=== PATIENT | female | born 1950 | race Caucasian/White ===

== ENCOUNTER → 2016-07-22 | Outpatient (CLI) | payer MEDICARE, BC ==
[2015-08-14 07:52] VITALS: BP 108/63
[~2016-07-22] MED LIST: ALEN1TAB2 PO; AMLO2.5T PO; ASPI-482 PO; ATOR20TA58 PO; CALC-77 PO; CARV3.122 PO; ESCI10TA PO; FENO160T PO; FERR-26 PO; FURO40TA4 PO; GLIP10TA13 PO; HYDR-2762 PO; INSU100C4 SQ; INSU100V13 SQ; IRBE1TAB7 PO; ISOS120T2 PO; LEVO50TA5 PO; LIRA0.6P SQ; LIRA0.6P2 SQ; LORA10TA55 PO; METF10002 PO; MULT-246 PO; NAPR220T25 PO; NAPR550T3 PO; NITR0.4T SL; OMEG1CAP6 PO; OMEG500C PO; OMEP20CA9 PO; OMEP20TA PO; POTA20TA84 PO
--- NOTE | 2016-07-22 15:23 | EKG ---
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
[2016-07-22 15:33] LABS: INR 1.1 (0.8-1.1); PROTHROMBIN TIME PATIENT 13.2 SEC (11.7-14.0)
[2016-07-22 15:47] LABS: BILIRUBIN,URINE NEGATIVE (NEG); GLUCOSE,URINE NEGATIVE (NEG); NITRITE,URINE NEGATIVE (NEG); PH,URINE 5.5; PROTEIN,URINE NEGATIVE (NEG-TRACE); UROBILINOGEN,URINE 0.2 mg/dL (0.2 mg/dL)
--- NOTE | 2016-07-22 16:07 | RAD ---
Indication preop. Anticipated orthopedic surgery. PA and lateral views of the chest were obtained. Comparison is made to an examination one year ago. Heart size is slightly enlarged but unchanged. There is no gross congestive heart failure. A focal infiltrate in either lung is not seen. Significant pleural fluid is not seen. There is no pneumothorax. A significant change compared to the prior study is not seen. Right shoulder prosthesis is noted. IMPRESSION: Chronic changes. No acute process. No significant change
[2016-07-22 16:09] LABS: BACTERIA,URINE FEW /HPF (0-FEW); RBC,URINE 0 /HPF (0-2); SQUAMOUS EPITHELIAL CELL,UR OCC /LPF
== END | disposition home or self-care (01) ==
LOC: SURGPAT 13:59
PROVIDERS: ATTEND Orthopaedic Surgery
DX: Z01.818 Encounter for other preprocedural examination (principal); Z96.651 Presence of right artificial knee joint
CPT/HCPCS: 36415; 71020; 81001; 85610; 85651; 85730; 87086; 87641; 93005

== ENCOUNTER 2016-07-26 06:06 | Inpatient (IN) | payer MEDICARE, BC ==
--- NOTE | 2016-07-22 14:26 | PDOC1 ---
History and Physical Date of Admission Date of Admission DATE: 07/26/16 Identification/Chief Complaint Chief Complaint right knee pain Source Source: Chart review History of Present Illness History of Present Illness Freya is a 66 year old female with right knee pain with history of right total knee arthroplasty on 08/11/15. About two months ago, she fell in her home, she does not remember if she landed on her knee or not. She has been treated for a periprosthetic patella fracture with a hinged knee brace, locked in extension, for three weeks. She continues to have pain and instability. Past Medical History Cardiovascular: CHF, HTN, Other Pulmonary: Asthma, COPD Musculoskeletal: low back pain, Osteoarthritis Endocrine: Diabetes Past Surgical History Past Surgical History: Appendectomy, Cholecystectomy, Total knee replacement ( right - 08/01/15), Tonsillectomy, Hysterectomy, Other (TSA) Family History Family History: Cancer, Heart Disease, Hypertension, Stroke Social History Smoke: No ALCOHOL: none Drugs: None Current Medications Current Medications Active Scripts Active Reported Ferrous Sulfate 325 Mg Tablet 1 Tab PO BID LAST DOSE GIVEN: DATE: 08/13 TIME: 9 am NEXT DOSE DUE: DATE: 08/14 TIME: 5 pm Victoza 3-Darío (Liraglutide) 0.6 Mg/0.1 Ml Pen.injctr 1.8 Mg SQ DAILY LAST DOSE GIVEN: DATE: 08/13 TIME: 9 am NEXT DOSE DUE: DATE: 08/14 TIME: 9 am Levemir (Insulin Detemir) 100 Unit/1 Ml Vial 25 Unit SQ HS LAST DOSE GIVEN: DATE: 08/12 TIME: 9 pm NEXT DOSE DUE: DATE: 08/13 TIME: 9 pm Amlodipine Besylate 2.5 Mg Tablet 2.5 Mg PO DAILY LAST DOSE GIVEN: DATE: 08/13 TIME: 9 am NEXT DOSE DUE: DATE: 08/14 TIME: 9 am Nitrostat (Nitroglycerin) 0.4 Mg Tab.subl 0.4 Mg SL PRN Q5MIN PRN Not given. Resume at home as needed for chest pain. Aspir 81 (Aspirin) 81 Mg Tablet.dr 81 Mg PO LAST DOSE GIVEN: DATE: 08/13 TIME: 9 am NEXT DOSE DUE: DATE: 08/14 TIME: 9 am Fosamax Plus D 70 Mg-2,800 Iu (Alendronate Sodium/Vitamin D3) 1 Each Tablet 1 Each PO WEEKLY LAST DOSE GIVEN: DATE: TIME: NEXT DOSE DUE: DATE: TIME: Calcium + D3 Er Tablet (Calcium Carb & Cit/Vitamin D3) 1 Each Tablet.er 1 Each PO DAILY LAST DOSE GIVEN: DATE: 08/13 TIME: 9 am NEXT DOSE DUE: DATE: 08/14 TIME: 9 am Escitalopram Oxalate 10 Mg Tablet 10 Mg PO DAILY LAST DOSE GIVEN: DATE: 08/13 TIME: 9 am NEXT DOSE DUE: DATE: 08/14 TIME: 9 am Atorvastatin Calcium 20 Mg Tablet 20 Mg PO DAILY LAST DOSE GIVEN: DATE: 08/12 TIME: 9 pm NEXT DOSE DUE: DATE: 08/13 TIME: 9 pm Fenofibrate 160 Mg Tablet 160 Mg PO DAILY LAST DOSE GIVEN: DATE: 08/13 TIME: 9 am NEXT DOSE DUE: DATE: 08/14 TIME: 9 am Novolog (Insulin Aspart) 100 Unit/1 Ml Cartridge 6 Units SQ QID Irbesartan-Hctz 300-12.5 Mg Tb (Irbesartan/Hydrochlorothiazide) 1 Each Tablet 0.5 Tab PO DAILY LAST DOSE GIVEN: DATE: 08/13 TIME: 9 am NEXT DOSE DUE: DATE: 08/14 TIME: 9 am Multi-Vitamin Daily (Multivitamin) 1 Each Tablet 1 Each PO DAILY LAST DOSE GIVEN: DATE: 08/13 TIME: 9 am NEXT DOSE DUE: DATE: 08/14 TIME: 9 am Loratadine 10 Mg Tab.rapdis 10 Mg PO DAILY LAST DOSE GIVEN: DATE: 08/13 TIME: 9 am NEXT DOSE DUE: DATE: 08/14 TIME: 9 am Isosorbide Mononitrate Er (Isosorbide Mononitrate) 120 Mg Tab.er.24h 60 Mg PO DAILY LAST DOSE GIVEN: DATE: 08/13 TIME: 9 am NEXT DOSE DUE: DATE: 08/14 TIME: 9 am Levothyroxine Sodium 50 Mcg Tablet 50 Mcg PO DAILYAC LAST DOSE GIVEN: DATE: 08/13 TIME: 9 am NEXT DOSE DUE: DATE: 08/14 TIME: 9 am Furosemide 40 Mg Tablet 40 Mg PO BID LAST DOSE GIVEN: DATE: 08/13 TIME: 9 am NEXT DOSE DUE: DATE: 08/14 TIME: 5 pm Metformin Hcl 1,000 Mg Tablet 1,000 Mg PO BID LAST DOSE GIVEN: DATE: 08/13 TIME: 9 am NEXT DOSE DUE: DATE: 08/13 TIME: 5 pm Carvedilol 3.125 Mg Tablet 3.125 Mg PO BID LAST DOSE GIVEN: DATE: 08/13 TIME: 9 am NEXT DOSE DUE: DATE: 08/13 TIME: 5 pm K-Tab ER (Potassium Chloride) 20 Meq Tablet.er 20 Meq PO DAILY LAST DOSE GIVEN: DATE: 08/13 TIME: 9 am NEXT DOSE DUE: DATE: 08/14 TIME: 9 am Omeprazole 20 Mg Tablet.dr 20 Mg PO DAILY LAST DOSE GIVEN: DATE: 08/13 TIME: 9 am NEXT DOSE DUE: DATE: 08/14 TIME: 9 am protonix substituted Glipizide 10 Mg Tablet 10 Mg PO BID LAST DOSE GIVEN: DATE: 08/13 TIME: 9 am NEXT DOSE DUE: DATE: 08/14 TIME: 5 pm Allergies Allergies: Coded Allergies: codeine (Verified Allergy, Intermediate, 09/08/14) niacin (Verified Allergy, Intermediate, 09/08/14) nifedipine (Verified Allergy, Intermediate, 09/08/14) propoxyphene (Verified Allergy, Intermediate, 09/08/14) Physical Exam General: Alert, Oriented X3, Cooperative, No acute distress HEENT: Atraumatic, EOMI Lungs: Normal air movement Heart: RRR Abdomen: Soft Extremities: No clubbing, No cyanosis, Normal pulses, Other (The right total knee incision is well-healed with no evidence of infection. No detectable effusion. There is moderate to severe tenderness to palpation at the superior and inferior pole of the patella and along the patellar tendon. The right knee shows active range of motion from 0-100 but pain at the extremes. The patella seems slightly in mariza position compared to her other knee. There is pain and tightness felt at the extreme of flexion. Extensor mechanism is intact but weak. The knee is stable to varus and valgus stress, without subluxation or laxity. Calf soft and nontender, with a negative Jaya's sign. ) Skin: No rashes, No breakdown, No significant lesion Neuro: Normal speech, Sensation intact Psych/Mental Status: Mental status NL, Mood NL VTE Prophylaxis Ordered VTE Prophylaxis Devices: Yes VTE Pharmacological Prophylaxi: Yes Assessment/Plan Assessment/Plan Continued pain and weakness of the extensor mechanism, patella fracture on radiograph, palpable tenderness of the patellar tendon. This is been unrelieved with splinting. She has severe pain and a sense of instability of the knee. She denies numbness or tingling. Dr. Blackwell spoke to her about surgical repair of her extensor mechanism, along with hamstring tendon autograft augmentation. She may need partial or total patellectomy depending on the findings intraoperatively. We will try to repair whenever patella tendon is available, although it may be torn or atrophic. We will augment that with the hamstring autograft, and used # 5 fiber wire suture from the quadriceps, through the remaining patella, into the tibial tubercle. She will need to be in the knee brace locked in extension for six weeks postoperatively. We talked about potential risks of ongoing pain or weakness, infection, bleeding, blood clots, or other potential surgical or anesthetic complications. All of her questions were answered. She desires to proceed. LUIS ARMANDO ROQUE Jul 22, 2016 14:26
[~2016-07-26] VITALS: Ht 152.4 cm; Wt 86.6 kg
[2016-07-26] VITALS (8 sets, daily range): BP systolic 116–133; BP diastolic 59–74
[~2016-07-26 06:06] MED LIST changes: +CEFAZOLIN 2GM PREMIX 50 ML IV PRN; +HYDROCODONE/APAP 7.5/325MG TABLET. PO PRN; +MORPHINE SULFATE 5 MG, KETOROLAC TROMETHAMINE 30 MG, ROPIVacaine 0.5% PF 60 ML, EPINEPH... INT ART ONE; +TRANEXAMIC ACID 1,000 MG in IV NORMAL SALINE 50ML 50 ML INJ ONE
[2016-07-26] MEDS ORDERED: EPINEPHRINE 30 MG/30 ML VIAL. ONE (06:25)
[2016-07-26] MEDS ORDERED: BUPIVACAINE-EPI 0.25%-1:200000 50 ML VIAL. ONE (06:25)
[2016-07-26] MEDS ORDERED: FENTANYL PF 100 MCG/2 ML VIAL. IV PRN ×3 (07:00→09:45)
[2016-07-26] MEDS ORDERED: CEFAZOLIN PREMIX 2 GM/50 ML BAG. IV ONE (07:00)
[2016-07-26] MEDS ORDERED: PROCHLORPERAZINE 10 MG/2 ML VIAL. IV PRN ×2 (07:00→09:45)
[2016-07-26] MEDS ORDERED: HYDROMORPHONE 2 MG/ML VIAL. IV PRN (07:00)
[2016-07-26] MEDS ORDERED: LIDOCAINE 1% 1 ML SYRINGE. ID PRN (07:00)
[2016-07-26] MEDS ORDERED: MORPHINE SULFATE 2 MG/ML DISP.SYRIN. IV PRN ×2 (07:00→09:45)
[2016-07-26] MEDS ORDERED: SCOPOLAMINE 1.5MG PATCH. TD SCH (07:00)
[2016-07-26] MEDS ORDERED: ONDANSETRON PF 4 MG/2 ML VIAL. IV PRN (07:00)
[2016-07-26] MEDS ORDERED: IV RINGERS,LACTATED 1000ML 1,000 ML IV SCH (07:00)
[2016-07-26] MEDS: IV RINGERS,LACTATED 1000ML 1,000 ML IV SCH ×2 (07:30→21:50)
[2016-07-26 07:56] LABS: BILIRUBIN,URINE NEGATIVE (NEG); GLUCOSE,URINE NEGATIVE (NEG); NITRITE,URINE NEGATIVE (NEG); PROTEIN,URINE NEGATIVE (NEG-TRACE)
[2016-07-26] MEDS ORDERED: FENTANYL PF 100 MCG/2 ML VIAL. ONE ×2 (07:57→08:40)
[2016-07-26] MEDS ORDERED: SEVOFLURANE 61 TO 120 MINUTES. IH ONE (07:57)
[2016-07-26] MEDS ORDERED: LIDOCAINE 2% 100 MG/5 ML SYRINGE. ONE (07:57)
[2016-07-26] MEDS ORDERED: DEXAMETHASONE SOD PHOS 20 MG/5 ML VIAL. ONE (07:57)
[2016-07-26] MEDS ORDERED: PROPOFOL 20 ML IV ONE (07:57)
[2016-07-26] MEDS ORDERED: TRANEXAMIC ACID 1,000 MG in IV NORMAL SALINE 50ML 50 ML INJ ONE (08:00)
[2016-07-26] MEDS ORDERED: EPHEDRINE PF IN SALINE 50 MG/5 ML DISP.SYRIN. IV ONE (08:01)
[2016-07-26 08:05] LABS: BACTERIA,URINE FEW /HPF (0-FEW); RBC,URINE OCC /HPF (0-2); SQUAMOUS EPITHELIAL CELL,UR MOD /LPF
[2016-07-26] MEDS ORDERED: FAMOTIDINE 20 MG/2 ML VIAL ONE (08:45)
[2016-07-26] MEDS ORDERED: ONDANSETRON PF 4 MG/2 ML VIAL. ONE (08:45)
[2016-07-26] MEDS: FENTANYL PF 100 MCG/2 ML VIAL. IV PRN ×4 (09:44→10:07)
[2016-07-26] MEDS ORDERED: ACETAMINOPHEN 325 MG TABLET. PO PRN (09:45)
[2016-07-26] MEDS ORDERED: DEXTROSE 50% 25 GM / 50ML DISP.SYRIN. IV PRN ×2 (09:45→10:30)
[2016-07-26] MEDS ORDERED: DIPHENHYDRAMINE 50 MG/ML VIAL. IV PRN (09:45)
[2016-07-26] MEDS ORDERED: OXYCODONE/APAP 7.5/325 TABLET. PO PRN (09:45)
[2016-07-26] MEDS ORDERED: HYDROCODONE/APAP 10/325 TABLET. PO PRN (09:45)
[2016-07-26] MEDS ORDERED: ZOLPIDEM 5 MG TABLET. PO PRN (09:45)
[2016-07-26] MEDS ORDERED: CALCIUM CARBONATE 500 MG TAB.CHEW PO PRN (09:45)
[2016-07-26] MEDS ORDERED: 0.9 % SODIUM CHLORIDE 10 ML DISP.SYRIN. IV PRN (09:45)
[2016-07-26] MEDS ORDERED: TRAMADOL 50 MG TABLET. PO PRN ×2 (09:45)
[2016-07-26] MEDS ORDERED: OXYCODONE/APAP 5/325 TABLET. PO PRN (09:45)
[2016-07-26] MEDS ORDERED: MORPHINE SULFATE 4 MG/ML DISP.SYRIN. IV PRN ×2 (09:45)
[2016-07-26] MEDS ORDERED: MORPHINE SULFATE 10 MG/ML VIAL. IV PRN (09:45)
[2016-07-26] MEDS ORDERED: METOCLOPRAMIDE HCL 10 MG/2 ML VIAL. IV PRN (09:45)
[2016-07-26] MEDS ORDERED: PROCHLORPERAZINE 5 MG TABLET. PO PRN (09:45)
--- NOTE | 2016-07-26 10:01 | PDOC4 ---
Operative Note Operative Note Date of Procedure: July 26, 2016 Pre-Op Diagnosis: Rupture of infrapatellar tendon right knee, periprosthetic Post-Op Diagnosis: Same Procedure: suture repair infrapatellar tendon using ipsilateral hamstring tendon autograft Surgeon: Kayce Blackwell MD Scorer Helper: Rocio Alonso PA-C Anesthesia: General EBL: 50 mL Specimens Obtained: none Complications: none Drains: none Indications for Procedure: The patient is a 66-year-old who had a prior total knee arthroplasty. She had an injury to the knee where she has fractured the lowest portion of the inferior pole of patella, and has weakness and a palpable defect in the extensor mechanism. Radiographic views showed patella mariza compared to her prior surgery postoperative films. We tried nonoperative treatment with bracing but she still has a lengthened extensor mechanism which causes weakness and giving way and pain. I recommended reconstruction of the patellar tendon using a hamstring tendon autograft. We might need to remove part of the patella. The patient and I discussed the risks, benefits and alternatives of surgery. Procedure in Detail: The patient was identified in the preoperative holding area. The correct right lower extremity was marked by me. The patient was taken to the operating room where general anesthesia was used. The patient was positioned supine on the operating table. Preoperative antibiotics were given intravenously. Tranexamic acid was given intravenously. A timeout procedure was performed. A tourniquet was used on the upper thigh. The limb was prepared in sterile fashion with ChloraPrep circumferentially. Sterile drapes were applied. An impervious stockinette was used over the lower limb. An Ioban drape was used such that the skin was entirely covered. Operative team wore personal exhaust ventilated hoods. The limb was elevated to exsanguinate it. The tourniquet was inflated to 350 mmHg. Previous midline incision was used. Sharp dissection was used and the electrocautery was used as needed for hemostasis. The peritenon was divided, and the patella and the patellar tendon were exposed. There was a palpable defect, and an area where the injury occurred corresponding with the x-ray findings. There was not much of a visual defect anymore as there had been some remodeling of the scar tissue. I excised some of the excess and fibrinous tissue in this area using a rongeurs and with a scalpel, to allow the tendon to shorten back to its original length. I harvested the semitendinosus tendon by increasing the exposure medially. The sartorius fascia was elevated. The semitendinosus was identified on the proximal tibia and dissected up the thigh with a [facility] tendon harvester. The tendon was detached from the upper tibia then taken to the back table where it was further prepared by my family and divorce legal assistant Rocio Alonso PA-C. Mr. Foster removed excess synovium and muscle fibers from the tendon graft. She trimmed of the tendon edges. She whipstitched the 2 free ends with #2 FiberWire suture and a running-I have not locking pattern. I proceeded with dissection at the upper patella for preparation of the graft passage. I did a medial arthrotomy, and exposed the patella, and the patellar implant was stable. There was transparent pale yellow benign synovial fluid with no evidence of infection. The components did not appear loose. I used a # 15 scalpel to create a tunnel position for the graft horizontally above the patella. Once Rocio finished with the tendon graft, it was implanted and used to reconstruct the patellar tendon. We passed that tendon graft using a Hewson suture passer across the superior pole of the patella at the quadriceps tendon-bone junction. The 2 limbs of the tendon were now brought down within some of the original infrapatellar tendon fibers and slightly anterior to the original tendon fibers, and brought down to the tibial tubercle. The whipstitched ends of the tendons were now attached to the tibial tubercle. I used a 2.5 mm drill bit from the [employer] titanium small fragment screw set. A bicortical hole was made. The depth was measured. A 4.0 mm partially threaded cancellous screw with a washer was used. Titanium implants were used. The screw and washer were inserted most of the way, and then the #2 FiberWire sutures from the patellar tendon were secured around the screw-washer post. The sutures were tied and trimmed for secure tensioning. The patella was now brought down to its original location as the sutures were tied. The screw was now advanced to complete the tightening of the washer to the bone. A secure repair was obtained with a nicely reconstructed infrapatellar tendon. The knee was able to be flexed to 90 with adequate tension on the graft , and no evidence of further patella mariza. The tourniquet was released. Bovie electrocautery was used for hemostasis. A periarticular injection was used with ropivacaine, morphine, epinephrine and Toradol. Tranexamic acid was given intravenously. Copious irrigation was used with saline. The medial parapatellar arthrotomy, and the patellar tendon was repaired with #2 PDS suture. 2-0 Vicryl was used in the peritenon. I had Rocio close the subcutaneous continues tissues with 2-0 Vicryl, and re-appose the skin with angella. Sterile dressings were applied. Needle and sponge counts were correct. There were no apparent competitions. KAYCE BLACKWELL MD Jul 26, 2016 10:01
[2016-07-26] MEDS ORDERED: NITROGLYCERIN SUBLINGUAL 0.4 MG BOTTLE OF 25. SL PRN (10:30)
--- NOTE | 2016-07-26 10:44 | RAD ---
Right knee radiographs History: Postoperative right knee. Comparison: 08/11/2015. Findings: AP and lateral views of the right knee. Again identified is a right total knee arthroplasty. Relationship of the tibial and femoral components appears anatomic. There has been interval placement of a long orthopedic screw involving the proximal tibia which may extend to the fibula as well. Soft tissue gas and surgical skin angella are compatible with recent postoperative status. A few small well-corticated ossific densities are seen around patella, including a small ossific density at the inferior aspect which is favored to represent a small chronic fracture fragment. Impression: 1. Postoperative changes of the right knee as described above. 2. Chronic fragmentation of the patella.
[2016-07-26] MEDS: HYDROCODONE/APAP 7.5/325MG TABLET. PO PRN (13:04)
[2016-07-26] MEDS: FUROSEMIDE 40 MG TABLET. PO SCH (13:04)
[2016-07-26] MEDS: SENNOSIDES/DOCUSATE 8.6/50MG TABLET. PO SCH (13:04)
[2016-07-26] MEDS: CEFAZOLIN 2GM PREMIX 50 ML IV SCH ×2 (13:08→20:23)
[2016-07-26] MEDS ORDERED: CARVEDILOL 3.125 MG TABLET. PO SCH (17:00)
[2016-07-26] MEDS: INSULIN ASPART 300 UNITS/3 ML INSULN.PEN SQ SCH ×3 (17:57→21:00)
[2016-07-26] MEDS: GLIPIZIDE 5 MG TABLET. PO SCH (17:57)
[2016-07-26] MEDS: FERROUS SULFATE 325 MG TABLET. PO SCH (17:57)
[2016-07-26] MEDS: METFORMIN 1,000 MG TABLET PO SCH (17:57)
[2016-07-26] MEDS ORDERED: INSULIN ASPART 300 UNITS/3 ML INSULN.PEN SQ ONE ×3 (19:15→23:00)
[2016-07-26] MEDS: IV DEXTROSE 5 %-0.45 % NACL 1,000 ML IV SCH (19:38)
[2016-07-26] MEDS ORDERED: AMLODIPINE BESYLATE 2.5 MG TABLET. PO SCH (21:00)
[2016-07-26] MEDS ORDERED: ATORVASTATIN CALCIUM 20 MG TABLET PO SCH (21:00)
[2016-07-26] MEDS: NAPROXEN 250 MG TABLET PO SCH (21:00)
[2016-07-26] MEDS ORDERED: ESCITALOPRAM 10 MG TABLET. PO SCH (21:00)
[2016-07-26] MEDS ORDERED: INSULIN DETEMIR 300 UNITS/3 ML INSULN.PEN. SQ SCH ×2 (21:00)
[2016-07-26] MEDS: ASPIRIN ENTERIC COATED 325 MG TABLET.DR. PO SCH (21:01)
[2016-07-26] MEDS ORDERED: ALBUTEROL SULFATE 2.5 MG/3 ML NEBU. NEB PRN (21:45)
[2016-07-26] MEDS ORDERED: IPRATRPIUM/ALBUTEROL 0.5/2.5MG 3 ML NEBU. NEB SCH (22:00)
--- NOTE | 2016-07-26 22:43 | PDOC2 ---
CONSULT Date of Consult Date of Consult DATE: 07/26/16 TIME: 22:38 Reason for Consult Reason for Consult: Hyperglycemia, post-op medical care of Dm2, poor control Referring Physician Referring Physician: Rosalva Identification/Chief Complaint Chief Complaint knee pain Source Source: Chart review, Patient History of Present Illness Reason for Visit: admit for repair of right knee Dx: Rupture of infrapatellar tendon right knee , periprosthetic was out of surgery earlier today for repair, and I was consulted for marked elevated blood sugar, higher than patient reports at home she is unaware of here A1c Hgb follows with Dr. Woodard in [place] now POD #0 repair infrapatellar tendon w/ hamstring tendon autograft Past Medical History Cardiovascular: CHF, HTN, Other Pulmonary: Asthma, COPD Musculoskeletal: low back pain, Osteoarthritis Endocrine: Diabetes Past Surgical History Past Surgical History: Appendectomy, Cholecystectomy, Total knee replacement ( right - 08/01/15), Tonsillectomy, Hysterectomy, Other (TSA) Family History Family History: Cancer, Heart Disease, Hypertension, Stroke Social History No ALCOHOL: none Drugs: None Current Problem List Problem List Problems Medical Problems: (1) Painful total knee replacement Status: Acute Current Medications Current Medications Current Medications Ondansetron HCl (Zofran) 0.4 mg PRN Q6HRS PRN IV NAUSEA/VOMITING; Start at 07:00; Stop 07/27/16 at 06:59 Fentanyl Citrate (Fentanyl 2ml Vial) 25 mcg PRN Q5MIN PRN IV MILD PAIN Last administered on 07/26/16t 10:07; Start 07/26/16 at 07:00; Stop 07/27/16 at 06:59 Fentanyl Citrate (Fentanyl 2ml Vial) 50 mcg PRN Q5MIN PRN IV MODERATE PAIN; Start 07/26/16 at 07:00; Stop 07/27/16 at 06:59 Morphine Sulfate 1 mg 1 mg PRN Q10MIN PRN IV SEVERE PAIN; Start 07/26/16 at 07: 00; Stop 07/27/16 at 06:59 Lactated Ringer's (Iv Lactated Ringers) 1,000 ml @ 0 mls/hr Q0M IV ; Start 07/26 at 07:00; Stop 07/26/16 at 18:59; Status Cancel Lidocaine HCl 2 ml PRN 1X PRN ID PRIOR TO IV START; Start 07/26/16 at 07:00; Stop 07/27/16 at 06:59 Hydromorphone HCl (Dilaudid) 0.5 mg PRN Q10MIN PRN IV SEV PAIN, Second choice; Start 07/26/16 at 07:00; Stop 07/27/16 at 06:59 Prochlorperazine Edisylate (Compazine) 5 mg PACU PRN PRN IV NAUSEA, MRX1 Last administered on 07/26/16 10:06; Start 07/26/16 at 07:00; Stop 07/27/16 at 06:59 Acetaminophen/ Hydrocodone Bitart 2 tab 2 tab 1X PREOP PRN PO PER PROTOCOL; Start 07/26/16 at 06:00 Cefazolin Sodium/ Dextrose 50 ml @ 100 mls/hr 1X PREOP PRN IV PRIOR TO PROCEDURE Last administered on 07/26/16 08:01; Start 07/26/16 at 06:00; Stop 07/26 at 18:00; Status DC Tranexamic Acid 1000 mg/Sodium Chloride 60 ml @ 60 mls/hr 1X PERIOP ONCE INJ Last administered on 07/26/16 08:35; Start 07/26/16 at 06:00; Stop 07/26/16 at 06: 59; Status DC Tranexamic Acid 1000 mg/Sodium Chloride 60 ml @ 60 mls/hr 1X PERIOP ONCE INJ Last administered on 07/26/16 09:06; Start 07/26/16 at 08:00; Stop 07/26/16 at 09: 00; Status DC Morphine Sulfate/ Ketorolac Tromethamine/ Ropivacaine/ Epinephrine HCl/ Sodium Chloride (Morphine 5mg Syringe/Toradol/ Naropin 0.5%/ Adrenalin/Iv Sodium Chloride 0.9% 100ml) 100.5 ml @ 100.5 mls/ hr 1X PERIOP ONCE INT ART Last administered on 07/26/16 08:33; Start 07/26/16 at 06:00; Stop 07/26/16 at 06:59; Status DC Scopolamine 1 patch 1 patch Q3DAYS TD Last administered on 07/26/16 08:13; Start 07/26/16 at 07:00 Lactated Ringer's (Iv Lactated Ringers) 1,000 ml @ 75 mls/hr [id number] IV Last administered on 07/26/16 07:30; Start 07/26/16 at 08:30 Acetaminophen/ Hydrocodone Bitart (Lortab 7.5/325) 1 tab PRN Q3HRS PRN PO PAIN Last administered on 07/26/16 13:04; Start 07/26/16 at 09:45 Acetaminophen/ Hydrocodone Bitart (Lortab 10/325) 1 tab PRN Q3HRS PRN PO PAIN; Start 07/26/16 at 09:45 Tramadol HCl (Ultram) 50 mg PRN QID PRN PO PAIN; Start 07/26/16 at 09:45 Oxycodone/ Acetaminophen (Percocet 5/325) 1 tab PRN Q3HRS PRN PO PAIN; Start at 09:45 Oxycodone/ Acetaminophen (Percocet 7.5/ 325) 1 tab PRN Q3HRS PRN PO PAIN; Start 07/26/16 at 09:45 Tramadol HCl (Ultram) 100 mg PRN Q3HRS PRN PO PAIN; Start 07/26/16 at 09:45 Morphine Sulfate 2 mg PRN Q1HR PRN IV PAIN; Start 07/26/16 at 09:45 Fentanyl Citrate (Fentanyl 2ml Vial) 25 mcg PRN Q1HR PRN IV PAIN; Start at 09:45 Diphenhydramine HCl (Benadryl) 25 mg PRN Q6HRS PRN IV ITCHING; Start 07/26/16 at 09:45 Multivitamins (Thera M Plus) 1 tab DAILY PO ; Start 07/27/16 at 09:00 Senna/Docusate Sodium 1 tab 1 tab DAILY PO Last administered on 07/26/16 13:04 ; Start 07/26/16 at 12:00 Dextrose/Sodium Chloride (Iv D5% - 1/2 NS) 1,000 ml @ 100 mls/hr Q10H IV ; Start 07/26/16 at 09:38 Prochlorperazine Maleate (Compazine) 10 mg PRN Q4HRS PRN PO NAUSEA/VOMITING; Start 07/26/16 at 09:45 Metoclopramide HCl (Reglan) 10 mg PRN Q4HRS PRN IV NAUSEA/VOMITING; Start at 09:45 Magnesium Hydroxide (Milk Of Magnesia) 2,400 mg 1X PRN PRN PO CONSTIPATION; Start 07/27/16 at 06:00; Stop 07/28/16 at 05:59 Bisacodyl (Dulcolax Supp) 10 mg 1X PRN PRN [place] CONSTIPATION; Start 07/27/16 at 16 :00; Stop 07/28/16 at 15:59 Acetaminophen (Tylenol) 650 mg PRN Q4HRS PRN PO MILD PAIN / TEMP; Start at 09:45 Zolpidem Tartrate (Ambien) 5 mg PRN QHS PRN PO INSOMNIA, MAY REPEAT IN 1HR; Start 07/26/16 at 09:45 Calcium Carbonate/ Glycine (Tums) 500 mg PRN QID PRN PO INDIGESTION; Start 07/26 at 09:45 Morphine Sulfate 4 mg PRN Q1HR PRN IV PAIN; Start 07/26/16 at 09:45 Morphine Sulfate 6 mg PRN Q1HR PRN IV PAIN; Start 07/26/16 at 09:45 Morphine Sulfate 8 mg PRN Q1HR PRN IV PAIN; Start 07/26/16 at 09:45 Sodium Chloride (Normal Saline Flush) 10 ml QSHIFT PRN IV AFTER MEDS AND BLOOD DRAWS; Start 07/26/16 at 09:45 Fentanyl Citrate (Fentanyl 2ml Vial) 50 mcg PRN Q1HR PRN IV PAIN Last administered on 07/26/16 11:12; Start 07/26/16 at 09:45 Prochlorperazine Edisylate (Compazine) 10 mg PRN Q4HRS PRN IV NAUSEA/VOMITING; Start 07/26/16 at 09:45 Dextrose 12.5 gm 12.5 gm PRN Q15MIN PRN IV SEE COMMENTS; Start 07/26/16 at 09:45 Cefazolin Sodium/ Dextrose (Ancef 2gm Premix) 50 ml @ 100 mls/hr Q6H IV Last administered on 07/26/16 20:23; Start 07/26/16 at 14:00; Stop 07/27/16 at 02:29 Aspirin (Ecotrin) 325 mg BID PO Last administered on 07/26/16 21:01; Start 07/26 at 21:00 Insulin Aspart (Novolog) 0-7 UNITS TIDWMEALS SQ Last administered on 07/26/16 17:59; Start 07/26/16 at 17:00 Dextrose (Dextrose 50%-Water Syringe) 12.5 gm PRN Q15MIN PRN IV SEE COMMENTS; Start 07/26/16 at 10:30; Status UNV Amlodipine Besylate (Norvasc) 2.5 mg HS PO Last administered on 07/26/16 20:59 ; Start 07/26/16 at 21:00 Atorvastatin Calcium (Lipitor) 20 mg HS PO Last administered on 07/26/16 21:00 ; Start 07/26/16 at 21:00 Carvedilol (Coreg) 3.125 mg BIDWMEALS PO Last administered on 07/26/16 17:58; Start 07/26/16 at 17:00 Escitalopram Oxalate (Lexapro) 10 mg HS PO Last administered on 07/26/16 21:01 ; Start 07/26/16 at 21:00 Ferrous Sulfate (Feosol) 325 mg BIDWMEALS PO Last administered on 07/26/16 17: 57; Start 07/26/16 at 17:00 Furosemide (Lasix) 40 mg BID92 PO Last administered on 07/26/16 13:04; Start at 14:00 Levothyroxine Sodium (Synthroid) 50 mcg DAILYAC PO ; Start 07/27/16 at 07:30 Metformin HCl (Glucophage) 1,000 mg BIDWMEALS PO Last administered on 07/26/16 17:57; Start 07/26/16 at 17:00 Nitroglycerin (Nitrostat) 0.4 mg PRN Q5MIN PRN SL CHEST PAIN; Start 07/26/16 at 10:30 Non-Formulary Medication 1 each WEEKLY PO ; Start 08/02/16 at 09:00; Status UNV Calcium/Vitamin D (Oscal D 500mg/ 200uts) 1 tab DAILY PO ; Start 07/27/16 at 09: 00 Fenofibrate (Lofibra) 134 mg DAILY PO ; Start 07/27/16 at 09:00 Glipizide (Glucotrol) 10 mg BIDBFRMEAL PO Last administered on 07/26/16 17:57; Start 07/26/16 at 16:30 Insulin Aspart (Novolog) 6 units QIDACHS SQ Last administered on 07/26/16t 17:57 ; Start 07/26/16 at 16:30 Insulin Detemir (Levemir) 25 units QHS SQ ; Start 07/26/16 at 21:00 Losartan Potassium (Cozaar) 50 mg DAILY PO ; Start 07/27/16 at 09:00 Isosorbide Mononitrate (Imdur) 60 mg DAILY PO ; Start 07/27/16 at 09:00 Non-Formulary Medication 1.8 mg DAILY SQ ; Start 07/27/16 at 09:00; Status UNV Cetirizine HCl (Zyrtec) 10 mg DAILY PO ; Start 07/27/16 at 09:00 Non-Formulary Medication 1 each DAILY PO ; Start 07/27/16 at 09:00; Status UNV Naproxen (Naprosyn) 250 mg BID PO Last administered on 07/26/16t 21:00; Start at 21:00 Pantoprazole Sodium (Protonix) 40 mg DAILYAC PO ; Start 07/27/16 at 07:30 Non-Formulary Medication 20 mg DAILY PO ; Start 07/27/16 at 09:00; Status UNV Potassium Chloride (Klor-Con) 20 meq DAILYWBKFT PO ; Start 07/27/16 at 08:00 Hydrochlorothiazide (Hydrodiuril) 6.25 mg DAILY PO ; Start 07/27/16 at 09:00 Bupivacaine HCl/ Epinephrine Bitart (Marcaine-Epi 0.25%-[id number]) 50 ml STK-MED ONCE .ROUTE ; Start 07/26/16 at 06:25; Stop 07/26/16 at 11:32; Status DC Epinephrine HCl (Adrenalin) 30 mg STK-MED ONCE .ROUTE ; Start 07/26/16 at 06:25; Stop 07/26/16 at 11:32; Status DC Dexamethasone Sodium Phosphate 20 mg 20 mg STK-MED ONCE .ROUTE ; Start 07/26/16 at 07:57; Stop 07/26/16 at 11:35; Status DC Propofol (Diprivan) 20 ml @ As Directed STK-MED ONCE IV ; Start 07/26/16 at 07:57 ; Stop 07/26/16 at 11:35; Status DC Lidocaine HCl (Lidocaine HCl 2% Abboject) 100 mg STK-MED ONCE .ROUTE ; Start 07/26/16 at 07:57; Stop 07/26/16 at 11:35; Status DC Sevoflurane (Ultane) 60 ml STK-MED ONCE IH ; Start 07/26/16 at 07:57; Stop at 11:35; Status DC Fentanyl Citrate (Fentanyl 2ml Vial) 100 mcg STK-MED ONCE .ROUTE ; Start at 07:57; Stop 07/26/16 at 11:35; Status DC Ephedrine Sulfate 50 mg STK-MED ONCE IV ; Start 07/26/16 at 08:01; Stop 07/26/16 at 11:35; Status DC Fentanyl Citrate (Fentanyl 2ml Vial) 100 mcg STK-MED ONCE .ROUTE ; Start at 08:40; Stop 07/26/16 at 11:39; Status DC Ondansetron HCl (Zofran) 4 mg STK-MED ONCE .ROUTE ; Start 07/26/16 at 08:45; Stop 07/26/16 at 11:39; Status DC Famotidine (Pepcid) 20 mg STK-MED ONCE .ROUTE ; Start 07/26/16 at 08:45; Stop 07/26/16 at 11:39; Status DC Cefazolin Sodium/ Dextrose (Ancef 2gm Premix) 2 gm STK-MED ONCE IV ; Start at 07:00; Stop 07/26/16 at 13:25; Status DC Insulin Aspart (Novolog) 20 units 1X ONCE SQ Last administered on 07/26/16 19: 13; Start 07/26/16 at 19:15; Stop 07/26/16 at 19:16; Status DC Insulin Aspart (Novolog) 15 units 1X ONCE SQ Last administered on 07/26/16 21: 06; Start 07/26/16 at 21:00; Stop 07/26/16 at 21:01; Status DC Insulin Detemir (Levemir) 30 units QHS SQ Last administered on 07/26/16 21:10; Start 07/26/16 at 21:00 Albuterol Sulfate (Ventolin Neb Soln) 2.5 mg PRN QID PRN NEB SHORTNESS OF BREATH; Start 07/26/16 at 21:45 Albuterol/ Ipratropium (Duoneb) 3 ml DAILY NEB ; Start 07/26/16 at 22:00 Active Scripts Active Reported Naproxen Sodium 550 Mg Tablet 220 Mg PO BID Ferrous Sulfate 325 Mg Tablet 1 Tab PO BID LAST DOSE GIVEN: DATE: 08/13 TIME: 9 am NEXT DOSE DUE: DATE: 08/14 TIME: 5 pm Victoza 3-Darío (Liraglutide) 0.6 Mg/0.1 Ml Pen.injctr 1.8 Mg SQ DAILY LAST DOSE GIVEN: DATE: 08/13 TIME: 9 am NEXT DOSE DUE: DATE: 08/14 TIME: 9 am Levemir (Insulin Detemir) 100 Unit/1 Ml Vial 25 Unit SQ HS LAST DOSE GIVEN: DATE: 08/12 TIME: 9 pm NEXT DOSE DUE: DATE: 08/13 TIME: 9 pm Amlodipine Besylate 2.5 Mg Tablet 2.5 Mg PO HS LAST DOSE GIVEN: DATE: 08/13 TIME: 9 am NEXT DOSE DUE: DATE: 08/14 TIME: 9 am Nitrostat (Nitroglycerin) 0.4 Mg Tab.subl 0.4 Mg SL PRN Q5MIN PRN Not given. Resume at home as needed for chest pain. Fosamax Plus D 70 Mg-2,800 Iu (Alendronate Sodium/Vitamin D3) 1 Each Tablet 1 Each PO WEEKLY LAST DOSE GIVEN: DATE: TIME: NEXT DOSE DUE: DATE: TIME: Calcium + D3 Er Tablet (Calcium Carb & Cit/Vitamin D3) 1 Each Tablet.er 1 Each PO DAILY LAST DOSE GIVEN: DATE: 08/13 TIME: 9 am NEXT DOSE DUE: DATE: 08/14 TIME: 9 am Escitalopram Oxalate 10 Mg Tablet 10 Mg PO HS LAST DOSE GIVEN: DATE: 08/13 TIME: 9 am NEXT DOSE DUE: DATE: 08/14 TIME: 9 am Atorvastatin Calcium 20 Mg Tablet 20 Mg PO HS LAST DOSE GIVEN: DATE: 08/12 TIME: 9 pm NEXT DOSE DUE: DATE: 08/13 TIME: 9 pm Fenofibrate 160 Mg Tablet 160 Mg PO DAILY LAST DOSE GIVEN: DATE: 08/13 TIME: 9 am NEXT DOSE DUE: DATE: 08/14 TIME: 9 am Novolog (Insulin Aspart) 100 Unit/1 Ml Cartridge 6 Units SQ QID Irbesartan-Hctz 300-12.5 Mg Tb (Irbesartan/Hydrochlorothiazide) 1 Each Tablet 0.5 Tab PO DAILY LAST DOSE GIVEN: DATE: 08/13 TIME: 9 am NEXT DOSE DUE: DATE: 08/14 TIME: 9 am Multi-Vitamin Daily (Multivitamin) 1 Each Tablet 1 Each PO DAILY LAST DOSE GIVEN: DATE: 08/13 TIME: 9 am NEXT DOSE DUE: DATE: 08/14 TIME: 9 am Loratadine 10 Mg Tab.rapdis 10 Mg PO DAILY LAST DOSE GIVEN: DATE: 08/13 TIME: 9 am NEXT DOSE DUE: DATE: 08/14 TIME: 9 am Isosorbide Mononitrate Er (Isosorbide Mononitrate) 120 Mg Tab.er.24h 60 Mg PO DAILY LAST DOSE GIVEN: DATE: 08/13 TIME: 9 am NEXT DOSE DUE: DATE: 08/14 TIME: 9 am Levothyroxine Sodium 50 Mcg Tablet 50 Mcg PO DAILYAC LAST DOSE GIVEN: DATE: 08/13 TIME: 9 am NEXT DOSE DUE: DATE: 08/14 TIME: 9 am Furosemide 40 Mg Tablet 40 Mg PO BID LAST DOSE GIVEN: DATE: 08/13 TIME: 9 am NEXT DOSE DUE: DATE: 08/14 TIME: 5 pm Metformin Hcl 1,000 Mg Tablet 1,000 Mg PO BID LAST DOSE GIVEN: DATE: 08/13 TIME: 9 am NEXT DOSE DUE: DATE: 08/13 TIME: 5 pm Carvedilol 3.125 Mg Tablet 3.125 Mg PO BID LAST DOSE GIVEN: DATE: 08/13 TIME: 9 am NEXT DOSE DUE: DATE: 08/13 TIME: 5 pm K-Tab ER (Potassium Chloride) 20 Meq Tablet.er 20 Meq PO DAILY LAST DOSE GIVEN: DATE: 08/13 TIME: 9 am NEXT DOSE DUE: DATE: 08/14 TIME: 9 am Omeprazole 20 Mg Tablet.dr 20 Mg PO DAILY LAST DOSE GIVEN: DATE: 08/13 TIME: 9 am NEXT DOSE DUE: DATE: 08/14 TIME: 9 am protonix substituted Glipizide 10 Mg Tablet 10 Mg PO BID LAST DOSE GIVEN: DATE: 08/13 TIME: 9 am NEXT DOSE DUE: DATE: 08/14 TIME: 5 pm Allergies Allergies: Coded Allergies: codeine (Verified Allergy, Intermediate, 07/26/16) niacin (Verified Allergy, Intermediate, 07/26/16) nifedipine (Verified Allergy, Intermediate, 07/26/16) oxycodone (Verified Allergy, Intermediate, forde, 07/26/16) hallucinates propoxyphene (Verified Allergy, Intermediate, 07/26/16) Uncoded Allergies: acquacel ag (Allergy, Intermediate, hives , 07/26/16) last time she had caused blisters that bled ROS General: No: Appetite, Chills, Fatigue, Malaise, Night Sweats, Other PSYCHOLOGICAL ROS: No: Anxiety, Behavioral Disorder, Concentration difficultie , Decreased libido, Depression, Disorientation, Hallucinations, Hostility, Irritablity, Memory difficulties, Mood Swings, Obsessive thoughts, Other, Physical abuse, Sexual abuse, Sleep disturbances, Suicidal ideation Eyes: No Blurry vision, No Decreased vision, No Double vision, No Dry eyes, No Excessive tearing, No Eye Pain, No Itchy Eyes, No Loss of vision, No Other, No Photophobia, No Scotomata, No Uses contacts, No Uses glasses HEENT: YES: Heacaches, No: Epistaxis, Hearing change, Nasal congestion, Nasal discharge, Oral lesions, Other, Sinus pain, Sneezing, Snoring, Sore Throat, Tinnitus, Vertigo, Visual Changes, Vocal changes Respiratory: No: Cough, Hemoptysis, Orthopnea, Other, Pleuritic Pain, SOB with excertion, Shortness of breath, Sputum Changes, Stridor, Tachypnea, Wheezing Cardiovascular: No Chest Pain, No Edema, No Lt Headedness, No Orthopnea, No Other, No Palpitations, No Paroxysmal Noc. Dyspnea Gastrointestinal: No Abdominal Pain, No Constipation, No Diarrhea, No Hematochezia, No Melena, No Nausea, No Other, No Vomiting Genitourinary: No , No , No , No , No , No , No , No Discharge, No Dysuria, No Flank Pain, No Frequency, No Hematuria, No Incontinence, No Other, No Pain, No Retention, No Urgency Musculoskeletal: Yes Gait Disturbance, Yes Joint Pain, Yes Joint Stiffness, Yes Pain In:, No Joint Swelling, No Muscle Pain, No Muscular Weakness, No Other, No Swelling In: Neurological: No Behavorial Changes, No Bowel/Bladder ControlChng, No Confusion , No Dizziness, No Headaches, No Impaired Coord/balance, No Memory Loss, No Numbness/Tingling, No Other, No Seizures, No Speech Problems, No Tremors, No Visual Changes, No Weakness Skin: No Acne, No Dry Skin, No Eczema, No Hair Changes, No Lumps, No Mole Changes, No Mottling, No Nail Changes, No Other, No Pruritus, No Rash, No Skin Lesion Changes Physical Exam General: Alert, Oriented X3, Cooperative, No acute distress HEENT: Atraumatic, PERRLA, EOMI, Other (dry OP) Lungs: Clear to auscultation Heart: Regular rate, No murmurs Abdomen: Normal bowel sounds, Soft (obese), No tenderness Extremities: No cyanosis, No edema, Normal pulses Skin: No rashes, No significant lesion Neuro: Normal speech, Normal tone, Sensation intact Psych/Mental Status: Mood NL MUSCULOSKELETAL: No joint tenderness, Other (right knee in brach, ) Vitals VITALS Vital Signs Date Time Temp Pulse Resp B/P Pulse Ox O2 Delivery O2 Flow Rate FiO2 07/26/16 20:59 84 132/63 07/26/16 18:08 97.5 20 94 Room Air 97.5 07/26/16 13:35 2.0 Labs Labs Laboratory Tests Test 07/26/16 07:06 07/26/16 07:40 07/26/16 09:41 07/26/16 16:56 Glucose (Fingerstick) 167mg/dL (70-99) 215mg/dL (70-99) 448mg/dL (70-99) Urine Collection Type Unknown Urine Color Yellow Urine Clarity Clear Urine pH 7.0 Urine Specific [place] 1.015 Urine Protein Negativemg/dL (NEG-TRACE) Urine Glucose (UA) Negativemg/dL (NEG) Urine Ketones (Stick) Negativemg/dL (NEG) Urine Blood Negative (NEG) Urine Nitrite Negative (NEG) Urine Bilirubin Negative (NEG) Urine Urobilinogen Dipstick 1.0mg/dL (0.2 mg/dL) Urine Leukocyte Esterase Moderate (NEG) Urine RBC Occ/HPF (0-2) Urine WBC 5-10/HPF (0-4) Urine Squamous Epithelial Cells Mod/LPF Urine Bacteria Few/HPF (0-FEW) Urine Mucus Slight/LPF Test 07/26/16 18:39 07/26/16 20:27 07/26/16 21:39 Glucose (Fingerstick) 539mg/dL (70-99) 425mg/dL (70-99) 391mg/dL (70-99) Laboratory Tests Test 07/26/16 07:06 07/26/16 07:40 07/26/16 09:41 07/26/16 16:56 Glucose (Fingerstick) 167mg/dL (70-99) 215mg/dL (70-99) 448mg/dL (70-99) Urine Collection Type Unknown Urine Color Yellow Urine Clarity Clear Urine pH 7.0 Urine Specific [place] 1.015 Urine Protein Negativemg/dL (NEG-TRACE) Urine Glucose (UA) Negativemg/dL (NEG) Urine Ketones (Stick) Negativemg/dL (NEG) Urine Blood Negative (NEG) Urine Nitrite Negative (NEG) Urine Bilirubin Negative (NEG) Urine Urobilinogen Dipstick 1.0mg/dL (0.2 mg/dL) Urine Leukocyte Esterase Moderate (NEG) Urine RBC Occ/HPF (0-2) Urine WBC 5-10/HPF (0-4) Urine Squamous Epithelial Cells Mod/LPF Urine Bacteria Few/HPF (0-FEW) Urine Mucus Slight/LPF Test 07/26/16 18:39 07/26/16 20:27 07/26/16 21:39 Glucose (Fingerstick) 539mg/dL (70-99) 425mg/dL (70-99) 391mg/dL (70-99) Assessment/Plan Assessment/Plan right knee pain, s/p repair of prior replacement, damaged in a fall obesity, BMI 37 weakness leg pain DM2, very poor control, mult doses insulin given tonight, continue and check Q2, check labs now IV fluid NS 100 /hr for one liter OP appears dry COPD, stable, no dyspnea, Nebs daily and prn will follow DHEERAJ US MD Jul 26, 2016 22:43
[2016-07-26] MEDS ORDERED: IV NORMAL SALINE 1000ML BAG 1,000 ML IV ONE (22:45)
[2016-07-27 01:17] LABS: BASO # 0.1 x10^3/uL (0.0-0.2); BASO % 1 % (0-3); EOS % 0 % (0-3); HEMATOCRIT 34.3 % (36.0-47.0); HEMOGLOBIN 11.2 g/dL (12.0-15.5); LYMPH # 1.9 x10^3/uL (1.0-4.8); LYMPH % 13 % (24-48); MEAN CORPUSCULAR HEMOGLOBIN 27 pg (25-35); MEAN CORPUSCULAR HGB CONC 33 g/dL (31-37); MEAN CORPUSCULAR VOLUME 84 fL (79-100); MONO % 6 % (0-9); NEUT % 80 % (31-73); PLATELET COUNT 128 x10^3/uL (140-400); RED CELL DISTRIBUTION WIDTH 14.1 % (11.5-14.5); WHITE BLOOD COUNT 14.6 x10^3/uL (4.0-11.0)
[2016-07-27 01:36] LABS: ALBUMIN/GLOBULIN RATIO 0.8 (1.0-1.7); CALCIUM 8.9 mg/dL (8.5-10.1); CREATININE 1.1 mg/dL (0.6-1.0); GFR 49.7; POTASSIUM 4.1 mmol/L (3.5-5.1); TOTAL BILIRUBIN 0.2 mg/dL (0.2-1.0); TOTAL PROTEIN 6.6 g/dL (6.4-8.2)
[2016-07-27] MEDS: CEFAZOLIN 2GM PREMIX 50 ML IV SCH (02:08)
[2016-07-27 02:51] VITALS: BP 132/63
[2016-07-27] MEDS: IV DEXTROSE 5 %-0.45 % NACL 1,000 ML IV SCH (05:38)
[2016-07-27] MEDS ORDERED: MAGNESIUM HYDROXIDE 2,400 MG/30 ML ORAL.SUSP. PO PRN (06:00)
[2016-07-27 06:31] VITALS: BP 126/70
[2016-07-27] MEDS ORDERED: PANTOPRAZOLE 40 MG TABLET.DR. PO SCH (07:30)
[2016-07-27] MEDS ORDERED: LEVOTHYROXINE 50 MCG TABLET PO SCH (07:30)
[2016-07-27] MEDS ORDERED: POTASSIUM CHLORIDE 20 MEQ TABLET.ER. PO SCH (08:00)
[2016-07-27] MEDS: INSULIN ASPART 300 UNITS/3 ML INSULN.PEN SQ SCH ×2 (08:00→08:23)
[2016-07-27] MEDS: HYDROCODONE/APAP 7.5/325MG TABLET. PO PRN (08:11)
[2016-07-27] MEDS: METFORMIN 1,000 MG TABLET PO SCH (08:13)
[2016-07-27] MEDS: NAPROXEN 250 MG TABLET PO SCH (08:13)
[2016-07-27] MEDS: GLIPIZIDE 5 MG TABLET. PO SCH (08:17)
[2016-07-27] MEDS: SENNOSIDES/DOCUSATE 8.6/50MG TABLET. PO SCH (08:17)
[2016-07-27] MEDS: ASPIRIN ENTERIC COATED 325 MG TABLET.DR. PO SCH (08:18)
[2016-07-27] MEDS: FUROSEMIDE 40 MG TABLET. PO SCH (08:19)
[2016-07-27] MEDS: FERROUS SULFATE 325 MG TABLET. PO SCH (08:19)
[2016-07-27] MEDS ORDERED: CALCIUM CARB/VIT D3 500/200 TABLET. PO SCH (09:00)
[2016-07-27] MEDS ORDERED: NON FORMULARY ITEM (Omeprazole 20 MG) PO SCH (09:00)
[2016-07-27] MEDS ORDERED: NON FORMULARY ITEM (Liraglutide (Victoza 3-Pak) 1.8 MG) SQ SCH (09:00)
[2016-07-27] MEDS ORDERED: LOSARTAN POTASSIUM 50 MG TABLET. PO SCH (09:00)
[2016-07-27] MEDS ORDERED: CETIRIZINE HCL 10 MG TABLET. PO SCH (09:00)
[2016-07-27] MEDS ORDERED: MULTIVITAMIN with MINERAL TABLET. PO SCH (09:00)
[2016-07-27] MEDS ORDERED: FENOFIBRATE,MICRONIZED 134 MG CAPSULE PO SCH (09:00)
[2016-07-27] MEDS ORDERED: ISOSORBIDE MONONITRATE ER 60 MG TAB.ER.24H. PO SCH (09:00)
[2016-07-27] MEDS ORDERED: NON FORMULARY ITEM (Multivitamin (Multi-Vitamin Daily) 1 EACH) PO SCH (09:00)
[2016-07-27] MEDS ORDERED: HYDROCHLOROTHIAZIDE 25 MG TABLET PO SCH (09:00)
--- NOTE | 2016-07-27 09:57 | PDOC ---
PROGRESS NOTES Chief Complaint Chief Complaint right knee pain, POD #1 s/p repair of prior replacement, damaged in a fall obesity, BMI 37 weakness leg pain DM2, marked hyperglycemia resolved COPD, stable, History of Present Illness History of Present Illness up to chair, has ambulated some medically improved, most issues at or near baseline. cont home meds I expressed concern about multiple falls, 3 falls with fracture in the past few years, but patient is motivated to DC, discussed with PT and ortho team medically clear to DC Vitals Vitals Vital Signs Date Time Temp Pulse Resp B/P Pulse Ox O2 Delivery O2 Flow Rate FiO2 07/27/16 08:47 Room Air 07/27/16 08:16 74 135/70 07/27/16 08:11 20 07/27/16 06:31 97.6 97 2.0 97.6 Physical Exam General: Alert, Oriented X3, Cooperative, No acute distress Heart: Regular rate, No murmurs Lungs: Clear Abdomen: Normal bowel sounds, Soft (obese), No tenderness Extremities: No cyanosis, No edema, Normal pulses Skin: No rashes, No significant lesion Labs LABS Laboratory Tests Test 07/26/16 16:56 07/26/16 18:39 07/26/16 20:27 07/26/16 21:39 Glucose (Fingerstick) 448mg/dL (70-99) 539mg/dL (70-99) 425mg/dL (70-99) 391mg/dL (70-99) Test 07/27/16 00:57 07/27/16 01:10 07/27/16 02:11 07/27/16 06:07 Glucose (Fingerstick) 242mg/dL (70-99) 187mg/dL (70-99) 82mg/dL (70-99) White Blood Count 14.6x10^3/uL (4.0-11.0) Red Blood Count 4.10x10^6/uL (3.50-5.40) Hemoglobin 11.2g/dL (12.0-15.5) Hematocrit 34.3% (36.0-47.0) Mean Corpuscular Volume 84fL (79-100) Mean Corpuscular Hemoglobin 27pg (25-35) Mean Corpuscular Hemoglobin Concent 33g/dL (31-37) Red Cell Distribution Width 14.1% (11.5-14.5) Platelet Count 128x10^3/uL (140-400) Neutrophils (%) (Auto) 80% (31-73) Lymphocytes (%) (Auto) 13% (24-48) Monocytes (%) (Auto) 6% (0-9) Eosinophils (%) (Auto) 0% (0-3) Basophils (%) (Auto) 1% (0-3) Neutrophils # (Auto) 11.7x10^3uL (1.8-7.7) Lymphocytes # (Auto) 1.9x10^3/uL (1.0-4.8) Monocytes # (Auto) 0.9x10^3/uL (0.0-1.1) Eosinophils # (Auto) 0.0x10^3/uL (0.0-0.7) Basophils # (Auto) 0.1x10^3/uL (0.0-0.2) Sodium Level 133mmol/L (136-145) Potassium Level 4.1mmol/L (3.5-5.1) Chloride Level 98mmol/L (98-107) Carbon Dioxide Level 26mmol/L (21-32) Anion Gap 9 (6-14) Blood Urea Nitrogen 14mg/dL (7-20) Creatinine 1.1mg/dL (0.6-1.0) Estimated GFR (Cockcroft-Gault) 49.7 BUN/Creatinine Ratio 13 (6-20) Glucose Level 230mg/dL (70-99) Calcium Level 8.9mg/dL (8.5-10.1) Total Bilirubin 0.2mg/dL (0.2-1.0) Aspartate Amino Transf (AST/SGOT) 14U/L (15-37) Alanine Aminotransferase (ALT/SGPT) 22U/L (14-59) Alkaline Phosphatase 83U/L (46-116) Total Protein 6.6g/dL (6.4-8.2) Albumin 3.0g/dL (3.4-5.0) Albumin/Globulin Ratio 0.8 (1.0-1.7) Test 07/27/16 08:13 Glucose (Fingerstick) 116mg/dL (70-99) Review of Systems Review of Systems no n.v.d Assessment and Plan Assessmemt and Plan Problems Medical Problems: (1) Painful total knee replacement Status: Acute Problems: Comment Review of Relevant I have reviewed the following items maria r (where applicable) has been applied. Labs Laboratory Tests Test 07/26/16 07:06 07/26/16 07:40 07/26/16 09:41 07/26/16 16:56 Glucose (Fingerstick) 167mg/dL (70-99) 215mg/dL (70-99) 448mg/dL (70-99) Urine Collection Type Unknown Urine Color Yellow Urine Clarity Clear Urine pH 7.0 Urine Specific [place] 1.015 Urine Protein Negativemg/dL (NEG-TRACE) Urine Glucose (UA) Negativemg/dL (NEG) Urine Ketones (Stick) Negativemg/dL (NEG) Urine Blood Negative (NEG) Urine Nitrite Negative (NEG) Urine Bilirubin Negative (NEG) Urine Urobilinogen Dipstick 1.0mg/dL (0.2 mg/dL) Urine Leukocyte Esterase Moderate (NEG) Urine RBC Occ/HPF (0-2) Urine WBC 5-10/HPF (0-4) Urine Squamous Epithelial Cells Mod/LPF Urine Bacteria Few/HPF (0-FEW) Urine Mucus Slight/LPF Test 07/26/16 18:39 07/26/16 20:27 07/26/16 21:39 07/27/16 00:57 Glucose (Fingerstick) 539mg/dL (70-99) 425mg/dL (70-99) 391mg/dL (70-99) 242mg/dL (70-99) Test 07/27/16 01:10 07/27/16 02:11 07/27/16 06:07 07/27/16 08:13 White Blood Count 14.6x10^3/uL (4.0-11.0) Red Blood Count 4.10x10^6/uL (3.50-5.40) Hemoglobin 11.2g/dL (12.0-15.5) Hematocrit 34.3% (36.0-47.0) Mean Corpuscular Volume 84fL (79-100) Mean Corpuscular Hemoglobin 27pg (25-35) Mean Corpuscular Hemoglobin Concent 33g/dL (31-37) Red Cell Distribution Width 14.1% (11.5-14.5) Platelet Count 128x10^3/uL (140-400) Neutrophils (%) (Auto) 80% (31-73) Lymphocytes (%) (Auto) 13% (24-48) Monocytes (%) (Auto) 6% (0-9) Eosinophils (%) (Auto) 0% (0-3) Basophils (%) (Auto) 1% (0-3) Neutrophils # (Auto) 11.7x10^3uL (1.8-7.7) Lymphocytes # (Auto) 1.9x10^3/uL (1.0-4.8) Monocytes # (Auto) 0.9x10^3/uL (0.0-1.1) Eosinophils # (Auto) 0.0x10^3/uL (0.0-0.7) Basophils # (Auto) 0.1x10^3/uL (0.0-0.2) Sodium Level 133mmol/L (136-145) Potassium Level 4.1mmol/L (3.5-5.1) Chloride Level 98mmol/L (98-107) Carbon Dioxide Level 26mmol/L (21-32) Anion Gap 9 (6-14) Blood Urea Nitrogen 14mg/dL (7-20) Creatinine 1.1mg/dL (0.6-1.0) Estimated GFR (Cockcroft-Gault) 49.7 BUN/Creatinine Ratio 13 (6-20) Glucose Level 230mg/dL (70-99) Calcium Level 8.9mg/dL (8.5-10.1) Total Bilirubin 0.2mg/dL (0.2-1.0) Aspartate Amino Transf (AST/SGOT) 14U/L (15-37) Alanine Aminotransferase (ALT/SGPT) 22U/L (14-59) Alkaline Phosphatase 83U/L (46-116) Total Protein 6.6g/dL (6.4-8.2) Albumin 3.0g/dL (3.4-5.0) Albumin/Globulin Ratio 0.8 (1.0-1.7) Glucose (Fingerstick) 187mg/dL (70-99) 82mg/dL (70-99) 116mg/dL (70-99) Laboratory Tests Test 07/26/16 16:56 07/26/16 18:39 07/26/16 20:27 07/26/16 21:39 Glucose (Fingerstick) 448mg/dL (70-99) 539mg/dL (70-99) 425mg/dL (70-99) 391mg/dL (70-99) Test 07/27/16 00:57 07/27/16 01:10 07/27/16 02:11 07/27/16 06:07 Glucose (Fingerstick) 242mg/dL (70-99) 187mg/dL (70-99) 82mg/dL (70-99) White Blood Count 14.6x10^3/uL (4.0-11.0) Red Blood Count 4.10x10^6/uL (3.50-5.40) Hemoglobin 11.2g/dL (12.0-15.5) Hematocrit 34.3% (36.0-47.0) Mean Corpuscular Volume 84fL (79-100) Mean Corpuscular Hemoglobin 27pg (25-35) Mean Corpuscular Hemoglobin Concent 33g/dL (31-37) Red Cell Distribution Width 14.1% (11.5-14.5) Platelet Count 128x10^3/uL (140-400) Neutrophils (%) (Auto) 80% (31-73) Lymphocytes (%) (Auto) 13% (24-48) Monocytes (%) (Auto) 6% (0-9) Eosinophils (%) (Auto) 0% (0-3) Basophils (%) (Auto) 1% (0-3) Neutrophils # (Auto) 11.7x10^3uL (1.8-7.7) Lymphocytes # (Auto) 1.9x10^3/uL (1.0-4.8) Monocytes # (Auto) 0.9x10^3/uL (0.0-1.1) Eosinophils # (Auto) 0.0x10^3/uL (0.0-0.7) Basophils # (Auto) 0.1x10^3/uL (0.0-0.2) Sodium Level 133mmol/L (136-145) Potassium Level 4.1mmol/L (3.5-5.1) Chloride Level 98mmol/L (98-107) Carbon Dioxide Level 26mmol/L (21-32) Anion Gap 9 (6-14) Blood Urea Nitrogen 14mg/dL (7-20) Creatinine 1.1mg/dL (0.6-1.0) Estimated GFR (Cockcroft-Gault) 49.7 BUN/Creatinine Ratio 13 (6-20) Glucose Level 230mg/dL (70-99) Calcium Level 8.9mg/dL (8.5-10.1) Total Bilirubin 0.2mg/dL (0.2-1.0) Aspartate Amino Transf (AST/SGOT) 14U/L (15-37) Alanine Aminotransferase (ALT/SGPT) 22U/L (14-59) Alkaline Phosphatase 83U/L (46-116) Total Protein 6.6g/dL (6.4-8.2) Albumin 3.0g/dL (3.4-5.0) Albumin/Globulin Ratio 0.8 (1.0-1.7) Test 07/27/16 08:13 Glucose (Fingerstick) 116mg/dL (70-99) Medications Current Medications Ondansetron HCl (Zofran) 0.4 mg PRN Q6HRS PRN IV NAUSEA/VOMITING; Start at 07:00; Stop 07/27/16 at 06:59; Status DC Fentanyl Citrate (Fentanyl 2ml Vial) 25 mcg PRN Q5MIN PRN IV MILD PAIN Last administered on 07/26/16t 10:07; Start 07/26/16 at 07:00; Stop 07/27/16 at 06:59; Status DC Fentanyl Citrate (Fentanyl 2ml Vial) 50 mcg PRN Q5MIN PRN IV MODERATE PAIN; Start 07/26/16 at 07:00; Stop 07/27/16 at 06:59; Status DC Morphine Sulfate 1 mg 1 mg PRN Q10MIN PRN IV SEVERE PAIN; Start 07/26/16 at 07: 00; Stop 07/27/16 at 06:59; Status DC Lactated Ringer's (Iv Lactated Ringers) 1,000 ml @ 0 mls/hr Q0M IV ; Start 07/26 at 07:00; Stop 07/26/16 at 18:59; Status Cancel Lidocaine HCl 2 ml PRN 1X PRN ID PRIOR TO IV START; Start 07/26/16 at 07:00; Stop 07/27/16 at 06:59; Status DC Hydromorphone HCl (Dilaudid) 0.5 mg PRN Q10MIN PRN IV SEV PAIN, Second choice; Start 07/26/16 at 07:00; Stop 07/27/16 at 06:59; Status DC Prochlorperazine Edisylate (Compazine) 5 mg PACU PRN PRN IV NAUSEA, MRX1 Last administered on 07/26/16 10:06; Start 07/26/16 at 07:00; Stop 07/27/16 at 06:59; Status DC Acetaminophen/ Hydrocodone Bitart 2 tab 2 tab 1X PREOP PRN PO PER PROTOCOL; Start 07/26/16 at 06:00 Cefazolin Sodium/ Dextrose 50 ml @ 100 mls/hr 1X PREOP PRN IV PRIOR TO PROCEDURE Last administered on 07/26/16 08:01; Start 07/26/16 at 06:00; Stop 07/26 at 18:00; Status DC Tranexamic Acid 1000 mg/Sodium Chloride 60 ml @ 60 mls/hr 1X PERIOP ONCE INJ Last administered on 07/26/16 08:35; Start 07/26/16 at 06:00; Stop 07/26/16 at 06: 59; Status DC Tranexamic Acid 1000 mg/Sodium Chloride 60 ml @ 60 mls/hr 1X PERIOP ONCE INJ Last administered on 07/26/16 09:06; Start 07/26/16 at 08:00; Stop 07/26/16 at 09: 00; Status DC Morphine Sulfate/ Ketorolac Tromethamine/ Ropivacaine/ Epinephrine HCl/ Sodium Chloride (Morphine 5mg Syringe/Toradol/ Naropin 0.5%/ Adrenalin/Iv Sodium Chloride 0.9% 100ml) 100.5 ml @ 100.5 mls/ hr 1X PERIOP ONCE INT ART Last administered on 07/26/16 08:33; Start 07/26/16 at 06:00; Stop 07/26/16 at 06:59; Status DC Scopolamine 1 patch 1 patch Q3DAYS TD Last administered on 07/26/16 08:13; Start 07/26/16 at 07:00 Lactated Ringer's (Iv Lactated Ringers) 1,000 ml @ 75 mls/hr [id number] IV Last administered on 07/26/16 07:30; Start 07/26/16 at 08:30 Acetaminophen/ Hydrocodone Bitart (Lortab 7.5/325) 1 tab PRN Q3HRS PRN PO PAIN Last administered on 07/27/16 08:11; Start 07/26/16 at 09:45 Acetaminophen/ Hydrocodone Bitart (Lortab 10/325) 1 tab PRN Q3HRS PRN PO PAIN; Start 07/26/16 at 09:45 Tramadol HCl (Ultram) 50 mg PRN QID PRN PO PAIN; Start 07/26/16 at 09:45 Oxycodone/ Acetaminophen (Percocet 5/325) 1 tab PRN Q3HRS PRN PO PAIN; Start at 09:45 Oxycodone/ Acetaminophen (Percocet 7.5/ 325) 1 tab PRN Q3HRS PRN PO PAIN; Start 07/26/16 at 09:45 Tramadol HCl (Ultram) 100 mg PRN Q3HRS PRN PO PAIN; Start 07/26/16 at 09:45 Morphine Sulfate 2 mg PRN Q1HR PRN IV PAIN; Start 07/26/16 at 09:45 Fentanyl Citrate (Fentanyl 2ml Vial) 25 mcg PRN Q1HR PRN IV PAIN; Start at 09:45 Diphenhydramine HCl (Benadryl) 25 mg PRN Q6HRS PRN IV ITCHING; Start 07/26/16 at 09:45 Multivitamins (Thera M Plus) 1 tab DAILY PO Last administered on 07/27/16 08:17 ; Start 07/27/16 at 09:00 Senna/Docusate Sodium 1 tab 1 tab DAILY PO Last administered on 07/27/16 08:17 ; Start 07/26/16 at 12:00 Dextrose/Sodium Chloride (Iv D5% - 1/2 NS) 1,000 ml @ 100 mls/hr Q10H IV ; Start 07/26/16 at 09:38 Prochlorperazine Maleate (Compazine) 10 mg PRN Q4HRS PRN PO NAUSEA/VOMITING; Start 07/26/16 at 09:45 Metoclopramide HCl (Reglan) 10 mg PRN Q4HRS PRN IV NAUSEA/VOMITING; Start at 09:45 Magnesium Hydroxide (Milk Of Magnesia) 2,400 mg 1X PRN PRN PO CONSTIPATION; Start 07/27/16 at 06:00; Stop 07/28/16 at 05:59 Bisacodyl (Dulcolax Supp) 10 mg 1X PRN PRN MI CONSTIPATION; Start 07/27/16 at 16 :00; Stop 07/28/16 at 15:59 Acetaminophen (Tylenol) 650 mg PRN Q4HRS PRN PO MILD PAIN / TEMP; Start at 09:45 Zolpidem Tartrate (Ambien) 5 mg PRN QHS PRN PO INSOMNIA, MAY REPEAT IN 1HR; Start 07/26/16 at 09:45 Calcium Carbonate/ Glycine (Tums) 500 mg PRN QID PRN PO INDIGESTION; Start 07/26 at 09:45 Morphine Sulfate 4 mg PRN Q1HR PRN IV PAIN; Start 07/26/16 at 09:45 Morphine Sulfate 6 mg PRN Q1HR PRN IV PAIN; Start 07/26/16 at 09:45 Morphine Sulfate 8 mg PRN Q1HR PRN IV PAIN; Start 07/26/16 at 09:45 Sodium Chloride (Normal Saline Flush) 10 ml QSHIFT PRN IV AFTER MEDS AND BLOOD DRAWS; Start 07/26/16 at 09:45 Fentanyl Citrate (Fentanyl 2ml Vial) 50 mcg PRN Q1HR PRN IV PAIN Last administered on 07/26/16 11:12; Start 07/26/16 at 09:45 Prochlorperazine Edisylate (Compazine) 10 mg PRN Q4HRS PRN IV NAUSEA/VOMITING; Start 07/26/16 at 09:45 Dextrose 12.5 gm 12.5 gm PRN Q15MIN PRN IV SEE COMMENTS; Start 07/26/16 at 09:45 Cefazolin Sodium/ Dextrose (Ancef 2gm Premix) 50 ml @ 100 mls/hr Q6H IV Last administered on 07/27/16 02:08; Start 07/26/16 at 14:00; Stop 07/27/16 at 02:29; Status DC Aspirin (Ecotrin) 325 mg BID PO Last administered on 07/27/16 08:18; Start 07/26 at 21:00 Insulin Aspart (Novolog) 0-7 UNITS TIDWMEALS SQ Last administered on 07/26/16 17:59; Start 07/26/16 at 17:00 Dextrose (Dextrose 50%-Water Syringe) 12.5 gm PRN Q15MIN PRN IV SEE COMMENTS; Start 07/26/16 at 10:30; Status UNV Amlodipine Besylate (Norvasc) 2.5 mg HS PO Last administered on 07/26/16 20:59 ; Start 07/26/16 at 21:00 Atorvastatin Calcium (Lipitor) 20 mg HS PO Last administered on 07/26/16 21:00 ; Start 07/26/16 at 21:00 Carvedilol (Coreg) 3.125 mg BIDWMEALS PO Last administered on 07/26/16 17:58; Start 07/26/16 at 17:00 Escitalopram Oxalate (Lexapro) 10 mg HS PO Last administered on 07/26/16 21:01 ; Start 07/26/16 at 21:00 Ferrous Sulfate (Feosol) 325 mg BIDWMEALS PO Last administered on 07/27/16 08: 19; Start 07/26/16 at 17:00 Furosemide (Lasix) 40 mg BID92 PO Last administered on 07/27/16 08:19; Start at 14:00 Levothyroxine Sodium (Synthroid) 50 mcg DAILYAC PO Last administered on 08:19; Start 07/27/16 at 07:30 Metformin HCl (Glucophage) 1,000 mg BIDWMEALS PO Last administered on 07/27/16 08:13; Start 07/26/16 at 17:00 Nitroglycerin (Nitrostat) 0.4 mg PRN Q5MIN PRN SL CHEST PAIN; Start 07/26/16 at 10:30 Non-Formulary Medication 1 each WEEKLY PO ; Start 08/02/16 at 09:00; Status UNV Calcium/Vitamin D (Oscal D 500mg/ 200uts) 1 tab DAILY PO Last administered on 08:19; Start 07/27/16 at 09:00 Fenofibrate (Lofibra) 134 mg DAILY PO Last administered on 07/27/16 08:18; Start 07/27/16 at 09:00 Glipizide (Glucotrol) 10 mg BIDBFRMEAL PO Last administered on 07/27/16 08:17; Start 07/26/16 at 16:30 Insulin Aspart (Novolog) 6 units QIDACHS SQ Last administered on 07/27/16 08:23 ; Start 07/26/16 at 16:30 Insulin Detemir (Levemir) 25 units QHS SQ ; Start 07/26/16 at 21:00; Stop at 22:37; Status DC Losartan Potassium (Cozaar) 50 mg DAILY PO Last administered on 07/27/16 08:16 ; Start 07/27/16 at 09:00 Isosorbide Mononitrate (Imdur) 60 mg DAILY PO ; Start 07/27/16 at 09:00 Non-Formulary Medication 1.8 mg DAILY SQ ; Start 07/27/16 at 09:00; Status UNV Cetirizine HCl (Zyrtec) 10 mg DAILY PO Last administered on 07/27/16 08:19; Start 07/27/16 at 09:00 Non-Formulary Medication 1 each DAILY PO ; Start 07/27/16 at 09:00; Status UNV Naproxen (Naprosyn) 250 mg BID PO Last administered on 07/27/16 08:13; Start at 21:00 Pantoprazole Sodium (Protonix) 40 mg DAILYAC PO Last administered on 07/27/16 08:18; Start 07/27/16 at 07:30 Non-Formulary Medication 20 mg DAILY PO ; Start 07/27/16 at 09:00; Status UNV Potassium Chloride (Klor-Con) 20 meq DAILYWBKFT PO Last administered on 08:13; Start 07/27/16 at 08:00 Hydrochlorothiazide (Hydrodiuril) 6.25 mg DAILY PO Last administered on 08:15; Start 07/27/16 at 09:00 Bupivacaine HCl/ Epinephrine Bitart (Marcaine-Epi 0.25%-1:[id number]) 50 ml STK-MED ONCE .ROUTE ; Start 07/26/16 at 06:25; Stop 07/26/16 at 11:32; Status DC Epinephrine HCl (Adrenalin) 30 mg STK-MED ONCE .ROUTE ; Start 07/26/16 at 06:25; Stop 07/26/16 at 11:32; Status DC Dexamethasone Sodium Phosphate 20 mg 20 mg STK-MED ONCE .ROUTE ; Start 07/26/16 at 07:57; Stop 07/26/16 at 11:35; Status DC Propofol (Diprivan) 20 ml @ As Directed STK-MED ONCE IV ; Start 07/26/16 at 07:57 ; Stop 07/26/16 at 11:35; Status DC Lidocaine HCl (Lidocaine HCl 2% Abboject) 100 mg STK-MED ONCE .ROUTE ; Start 07/26/16 at 07:57; Stop 07/26/16 at 11:35; Status DC Sevoflurane (Ultane) 60 ml STK-MED ONCE IH ; Start 07/26/16 at 07:57; Stop at 11:35; Status DC Fentanyl Citrate (Fentanyl 2ml Vial) 100 mcg STK-MED ONCE .ROUTE ; Start at 07:57; Stop 07/26/16 at 11:35; Status DC Ephedrine Sulfate 50 mg STK-MED ONCE IV ; Start 07/26/16 at 08:01; Stop 07/26/16 at 11:35; Status DC Fentanyl Citrate (Fentanyl 2ml Vial) 100 mcg STK-MED ONCE .ROUTE ; Start at 08:40; Stop 07/26/16 at 11:39; Status DC Ondansetron HCl (Zofran) 4 mg STK-MED ONCE .ROUTE ; Start 07/26/16 at 08:45; Stop 07/26/16 at 11:39; Status DC Famotidine (Pepcid) 20 mg STK-MED ONCE .ROUTE ; Start 07/26/16 at 08:45; Stop 07/26/16 at 11:39; Status DC Cefazolin Sodium/ Dextrose (Ancef 2gm Premix) 2 gm STK-MED ONCE IV ; Start at 07:00; Stop 07/26/16 at 13:25; Status DC Insulin Aspart (Novolog) 20 units 1X ONCE SQ Last administered on 07/26/16t 19: 13; Start 07/26/16 at 19:15; Stop 07/26/16 at 19:16; Status DC Insulin Aspart (Novolog) 15 units 1X ONCE SQ Last administered on 07/26/16 21: 06; Start 07/26/16 at 21:00; Stop 07/26/16 at 21:01; Status DC Insulin Detemir (Levemir) 30 units QHS SQ Last administered on 07/26/16 21:10; Start 07/26/16 at 21:00; Stop 07/27/16 at 09:29; Status DC Albuterol Sulfate (Ventolin Neb Soln) 2.5 mg PRN QID PRN NEB SHORTNESS OF BREATH; Start 07/26/16 at 21:45 Albuterol/ Ipratropium (Duoneb) 3 ml DAILY NEB Last administered on 07/27/16 08 :46; Start 07/26/16 at 22:00 Insulin Aspart 20 units 20 units 1X ONCE SQ Last administered on 07/27/16 01: 04; Start 07/26/16 at 23:00; Stop 07/26/16 at 23:02; Status DC Sodium Chloride (Iv Sodium Chloride 0.9% 1000ml Bag) 1,000 ml @ 100 mls/hr 1X ONCE IV Last administered on 07/27/16 01:03; Start 07/26/16 at 22:45; Stop at 08:44; Status DC Insulin Detemir (Levemir) 25 units QHS SQ ; Start 07/27/16 at 21:00 Enoxaparin Sodium (Lovenox Per Pharmacy Prophylaxis Dosing) 1 each PRN DAILY PRN MC SEE COMMENTS; Start 07/27/16 at 09:30 Enoxaparin Sodium (Lovenox 40mg Syringe) 40 mg Q24H SQ ; Start 07/27/16 at 11:00 Active Scripts Active Reported Naproxen Sodium 550 Mg Tablet 220 Mg PO BID Ferrous Sulfate 325 Mg Tablet 1 Tab PO BID LAST DOSE GIVEN: DATE: 08/13 TIME: 9 am NEXT DOSE DUE: DATE: 08/14 TIME: 5 pm Victoza 3-Darío (Liraglutide) 0.6 Mg/0.1 Ml Pen.injctr 1.8 Mg SQ DAILY LAST DOSE GIVEN: DATE: 08/13 TIME: 9 am NEXT DOSE DUE: DATE: 08/14 TIME: 9 am Levemir (Insulin Detemir) 100 Unit/1 Ml Vial 25 Unit SQ HS LAST DOSE GIVEN: DATE: 08/12 TIME: 9 pm NEXT DOSE DUE: DATE: 08/13 TIME: 9 pm Amlodipine Besylate 2.5 Mg Tablet 2.5 Mg PO HS LAST DOSE GIVEN: DATE: 08/13 TIME: 9 am NEXT DOSE DUE: DATE: 08/14 TIME: 9 am Nitrostat (Nitroglycerin) 0.4 Mg Tab.subl 0.4 Mg SL PRN Q5MIN PRN Not given. Resume at home as needed for chest pain. Fosamax Plus D 70 Mg-2,800 Iu (Alendronate Sodium/Vitamin D3) 1 Each Tablet 1 Each PO WEEKLY LAST DOSE GIVEN: DATE: TIME: NEXT DOSE DUE: DATE: TIME: Calcium + D3 Er Tablet (Calcium Carb & Cit/Vitamin D3) 1 Each Tablet.er 1 Each PO DAILY LAST DOSE GIVEN: DATE: 08/13 TIME: 9 am NEXT DOSE DUE: DATE: 08/14 TIME: 9 am Escitalopram Oxalate 10 Mg Tablet 10 Mg PO HS LAST DOSE GIVEN: DATE: 08/13 TIME: 9 am NEXT DOSE DUE: DATE: 08/14 TIME: 9 am Atorvastatin Calcium 20 Mg Tablet 20 Mg PO HS LAST DOSE GIVEN: DATE: 08/12 TIME: 9 pm NEXT DOSE DUE: DATE: 08/13 TIME: 9 pm Fenofibrate 160 Mg Tablet 160 Mg PO DAILY LAST DOSE GIVEN: DATE: 08/13 TIME: 9 am NEXT DOSE DUE: DATE: 08/14 TIME: 9 am Novolog (Insulin Aspart) 100 Unit/1 Ml Cartridge 6 Units SQ QID Irbesartan-Hctz 300-12.5 Mg Tb (Irbesartan/Hydrochlorothiazide) 1 Each Tablet 0.5 Tab PO DAILY LAST DOSE GIVEN: DATE: 08/13 TIME: 9 am NEXT DOSE DUE: DATE: 08/14 TIME: 9 am Multi-Vitamin Daily (Multivitamin) 1 Each Tablet 1 Each PO DAILY LAST DOSE GIVEN: DATE: 08/13 TIME: 9 am NEXT DOSE DUE: DATE: 08/14 TIME: 9 am Loratadine 10 Mg Tab.rapdis 10 Mg PO DAILY LAST DOSE GIVEN: DATE: 08/13 TIME: 9 am NEXT DOSE DUE: DATE: 08/14 TIME: 9 am Isosorbide Mononitrate Er (Isosorbide Mononitrate) 120 Mg Tab.er.24h 60 Mg PO DAILY LAST DOSE GIVEN: DATE: 08/13 TIME: 9 am NEXT DOSE DUE: DATE: 08/14 TIME: 9 am Levothyroxine Sodium 50 Mcg Tablet 50 Mcg PO DAILYAC LAST DOSE GIVEN: DATE: 08/13 TIME: 9 am NEXT DOSE DUE: DATE: 08/14 TIME: 9 am Furosemide 40 Mg Tablet 40 Mg PO BID LAST DOSE GIVEN: DATE: 08/13 TIME: 9 am NEXT DOSE DUE: DATE: 08/14 TIME: 5 pm Metformin Hcl 1,000 Mg Tablet 1,000 Mg PO BID LAST DOSE GIVEN: DATE: 08/13 TIME: 9 am NEXT DOSE DUE: DATE: 08/13 TIME: 5 pm Carvedilol 3.125 Mg Tablet 3.125 Mg PO BID LAST DOSE GIVEN: DATE: 08/13 TIME: 9 am NEXT DOSE DUE: DATE: 08/13 TIME: 5 pm K-Tab ER (Potassium Chloride) 20 Meq Tablet.er 20 Meq PO DAILY LAST DOSE GIVEN: DATE: 08/13 TIME: 9 am NEXT DOSE DUE: DATE: 08/14 TIME: 9 am Omeprazole 20 Mg Tablet.dr 20 Mg PO DAILY LAST DOSE GIVEN: DATE: 08/13 TIME: 9 am NEXT DOSE DUE: DATE: 08/14 TIME: 9 am protonix substituted Glipizide 10 Mg Tablet 10 Mg PO BID LAST DOSE GIVEN: DATE: 08/13 TIME: 9 am NEXT DOSE DUE: DATE: 08/14 TIME: 5 pm Vitals/I & O Vital Sign - Last 24 Hours 07/26/16 07/26/16 07/26/16 07/26/16 10:02 10:04 10:07 10:19 Pulse 90 88 Resp 18 B/P 166/75 130/54 Pulse Ox 99 95 99 93 O2 Delivery Nasal Cannula Nasal Cannula Nasal Cannula Nasal Cannula O2 Flow Rate 3.0 3 3.0 3 07/26/16 07/26/16 07/26/16 07/26/16 10:29 10:34 11:00 11:12 Temp 97.8 97.8 Pulse 86 89 Resp 18 18 B/P 140/58 119/65 Pulse Ox 94 96 3 O2 Delivery Nasal Cannula Nasal Cannula Nasal Cannula Nasal Cannula O2 Flow Rate 3 3 2.0 07/26/16 07/26/16 07/26/16 07/26/16 11:18 11:30 11:45 12:00 Temp 97.5 97.5 Pulse 87 Resp 20 B/P 122/71 128/73 Pulse Ox 95 O2 Delivery Nasal Cannula Nasal Cannula Nasal Cannula O2 Flow Rate 3.0 3.0 2.0 07/26/16 07/26/16 07/26/16 07/26/16 12:30 13:04 13:35 14:30 Temp 98.0 97.9 98.0 97.9 Pulse 79 81 Resp 20 18 B/P 116/70 120/74 119/70 Pulse Ox 94 94 O2 Delivery Nasal Cannula Nasal Cannula Room Air O2 Flow Rate 3.0 2.0 07/26/16 07/26/16 07/26/16 07/26/16 17:58 18:08 20:00 20:59 Temp 97.5 97.5 Pulse 99 99 84 Resp 20 B/P 156/79 126/59 132/63 Pulse Ox 94 O2 Delivery Room Air Room Air 07/26/16 07/27/16 07/27/16 07/27/16 23:00 02:51 06:31 08:00 Temp 97.6 97.8 97.6 97.6 97.8 97.6 Pulse 77 78 82 Resp 20 B/P 133/62 132/63 126/70 Pulse Ox 98 97 O2 Delivery Room Air Nasal Cannula Nasal Cannula Room Air O2 Flow Rate 94.0 2.0 2.0 07/27/16 07/27/16 07/27/16 08:11 08:16 08:47 Pulse 74 Resp 20 B/P 135/70 O2 Delivery Room Air Intake and Output 07/26/16 07/26/16 07/27/16 15:00 23:00 07:00 Intake Total 1450 ml 460 ml 500 ml Output Total 150 ml 650 ml 975 ml Balance 1300 ml -190 ml -475 ml DHEERAJ US MD Jul 27, 2016 09:57
--- NOTE | 2016-07-27 09:57 | PDOC ---
PROGRESS NOTES Subjective Subjective feeling well. blood sugars under control now. Objective Vital Signs Vital Signs Date Time Temp Pulse Resp B/P Pulse Ox O2 Delivery O2 Flow Rate FiO2 07/27/16 08:47 Room Air 07/27/16 08:16 74 135/70 07/27/16 08:11 20 07/27/16 06:31 97.6 97 2.0 97.6 Physical Exam dressing dry. Calf soft NT. Walking halls in PT. Working on stairs one at a time, with walker and brace. Labs Laboratory Tests Test 07/26/16 07:06 07/26/16 07:40 07/26/16 09:41 07/26/16 16:56 Glucose (Fingerstick) 167mg/dL (70-99) 215mg/dL (70-99) 448mg/dL (70-99) Urine Collection Type Unknown Urine Color Yellow Urine Clarity Clear Urine pH 7.0 Urine Specific [place] 1.015 Urine Protein Negativemg/dL (NEG-TRACE) Urine Glucose (UA) Negativemg/dL (NEG) Urine Ketones (Stick) Negativemg/dL (NEG) Urine Blood Negative (NEG) Urine Nitrite Negative (NEG) Urine Bilirubin Negative (NEG) Urine Urobilinogen Dipstick 1.0mg/dL (0.2 mg/dL) Urine Leukocyte Esterase Moderate (NEG) Urine RBC Occ/HPF (0-2) Urine WBC 5-10/HPF (0-4) Urine Squamous Epithelial Cells Mod/LPF Urine Bacteria Few/HPF (0-FEW) Urine Mucus Slight/LPF Test 07/26/16 18:39 07/26/16 20:27 07/26/16 21:39 07/27/16 00:57 Glucose (Fingerstick) 539mg/dL (70-99) 425mg/dL (70-99) 391mg/dL (70-99) 242mg/dL (70-99) Test 07/27/16 01:10 07/27/16 02:11 07/27/16 06:07 07/27/16 08:13 White Blood Count 14.6x10^3/uL (4.0-11.0) Red Blood Count 4.10x10^6/uL (3.50-5.40) Hemoglobin 11.2g/dL (12.0-15.5) Hematocrit 34.3% (36.0-47.0) Mean Corpuscular Volume 84fL (79-100) Mean Corpuscular Hemoglobin 27pg (25-35) Mean Corpuscular Hemoglobin Concent 33g/dL (31-37) Red Cell Distribution Width 14.1% (11.5-14.5) Platelet Count 128x10^3/uL (140-400) Neutrophils (%) (Auto) 80% (31-73) Lymphocytes (%) (Auto) 13% (24-48) Monocytes (%) (Auto) 6% (0-9) Eosinophils (%) (Auto) 0% (0-3) Basophils (%) (Auto) 1% (0-3) Neutrophils # (Auto) 11.7x10^3uL (1.8-7.7) Lymphocytes # (Auto) 1.9x10^3/uL (1.0-4.8) Monocytes # (Auto) 0.9x10^3/uL (0.0-1.1) Eosinophils # (Auto) 0.0x10^3/uL (0.0-0.7) Basophils # (Auto) 0.1x10^3/uL (0.0-0.2) Sodium Level 133mmol/L (136-145) Potassium Level 4.1mmol/L (3.5-5.1) Chloride Level 98mmol/L (98-107) Carbon Dioxide Level 26mmol/L (21-32) Anion Gap 9 (6-14) Blood Urea Nitrogen 14mg/dL (7-20) Creatinine 1.1mg/dL (0.6-1.0) Estimated GFR (Cockcroft-Gault) 49.7 BUN/Creatinine Ratio 13 (6-20) Glucose Level 230mg/dL (70-99) Calcium Level 8.9mg/dL (8.5-10.1) Total Bilirubin 0.2mg/dL (0.2-1.0) Aspartate Amino Transf (AST/SGOT) 14U/L (15-37) Alanine Aminotransferase (ALT/SGPT) 22U/L (14-59) Alkaline Phosphatase 83U/L (46-116) Total Protein 6.6g/dL (6.4-8.2) Albumin 3.0g/dL (3.4-5.0) Albumin/Globulin Ratio 0.8 (1.0-1.7) Glucose (Fingerstick) 187mg/dL (70-99) 82mg/dL (70-99) 116mg/dL (70-99) Laboratory Tests Test 07/26/16 16:56 07/26/16 18:39 07/26/16 20:27 07/26/16 21:39 Glucose (Fingerstick) 448mg/dL (70-99) 539mg/dL (70-99) 425mg/dL (70-99) 391mg/dL (70-99) Test 07/27/16 00:57 07/27/16 01:10 07/27/16 02:11 07/27/16 06:07 Glucose (Fingerstick) 242mg/dL (70-99) 187mg/dL (70-99) 82mg/dL (70-99) White Blood Count 14.6x10^3/uL (4.0-11.0) Red Blood Count 4.10x10^6/uL (3.50-5.40) Hemoglobin 11.2g/dL (12.0-15.5) Hematocrit 34.3% (36.0-47.0) Mean Corpuscular Volume 84fL (79-100) Mean Corpuscular Hemoglobin 27pg (25-35) Mean Corpuscular Hemoglobin Concent 33g/dL (31-37) Red Cell Distribution Width 14.1% (11.5-14.5) Platelet Count 128x10^3/uL (140-400) Neutrophils (%) (Auto) 80% (31-73) Lymphocytes (%) (Auto) 13% (24-48) Monocytes (%) (Auto) 6% (0-9) Eosinophils (%) (Auto) 0% (0-3) Basophils (%) (Auto) 1% (0-3) Neutrophils # (Auto) 11.7x10^3uL (1.8-7.7) Lymphocytes # (Auto) 1.9x10^3/uL (1.0-4.8) Monocytes # (Auto) 0.9x10^3/uL (0.0-1.1) Eosinophils # (Auto) 0.0x10^3/uL (0.0-0.7) Basophils # (Auto) 0.1x10^3/uL (0.0-0.2) Sodium Level 133mmol/L (136-145) Potassium Level 4.1mmol/L (3.5-5.1) Chloride Level 98mmol/L (98-107) Carbon Dioxide Level 26mmol/L (21-32) Anion Gap 9 (6-14) Blood Urea Nitrogen 14mg/dL (7-20) Creatinine 1.1mg/dL (0.6-1.0) Estimated GFR (Cockcroft-Gault) 49.7 BUN/Creatinine Ratio 13 (6-20) Glucose Level 230mg/dL (70-99) Calcium Level 8.9mg/dL (8.5-10.1) Total Bilirubin 0.2mg/dL (0.2-1.0) Aspartate Amino Transf (AST/SGOT) 14U/L (15-37) Alanine Aminotransferase (ALT/SGPT) 22U/L (14-59) Alkaline Phosphatase 83U/L (46-116) Total Protein 6.6g/dL (6.4-8.2) Albumin 3.0g/dL (3.4-5.0) Albumin/Globulin Ratio 0.8 (1.0-1.7) Test 07/27/16 08:13 Glucose (Fingerstick) 116mg/dL (70-99) Assessment Assessment POD#1 patellar tendon reconstruction Problems: Plan Plan of MCC today. Medical input appreciated. Continue ASA, bracing, WB in brace. office f/u. KAYCE MACHUCA MD Jul 27, 2016 09:57
[2016-07-27] MEDS ORDERED: ENOXAPARIN 40 MG/0.4 ML SYRINGE. SQ SCH (11:00)
--- NOTE | 2016-07-27 11:24 | PDOC3 ---
Discharge Summary Visit Information Date of Admission: Jul 26, 2016 Date of Discharge: Jul 27, 2016 Admitting Diagnosis: right knee patellar tendon rupture Final Diagnosis Problems Medical Problems: (1) Painful total knee replacement Status: Acute Brief Hospital Course Allergies Allergies Coded Allergies Type Severity Reaction Last Updated Verified codeine Allergy Intermediate 07/26/16 Yes niacin Allergy Intermediate 07/26/16 Yes nifedipine Allergy Intermediate 07/26/16 Yes oxycodone Allergy Intermediate forde 07/26/16 Yes propoxyphene Allergy Intermediate 07/26/16 Yes Uncoded Allergies Type Severity Reaction Last Updated Verified acquacel ag Allergy Intermediate hives 07/26/16 Vital Signs Vital Signs Date Time Temp Pulse Resp B/P Pulse Ox O2 Delivery O2 Flow Rate FiO2 07/27/16 08:47 Room Air 07/27/16 08:16 74 135/70 07/27/16 08:11 20 07/27/16 06:31 97.6 97 2.0 97.6 Lab Results Laboratory Tests Test 07/26/16 07:06 07/26/16 07:40 07/26/16 09:41 07/26/16 16:56 Glucose (Fingerstick) 167mg/dL (70-99) 215mg/dL (70-99) 448mg/dL (70-99) Urine Collection Type Unknown Urine Color Yellow Urine Clarity Clear Urine pH 7.0 Urine Specific [place] 1.015 Urine Protein Negativemg/dL (NEG-TRACE) Urine Glucose (UA) Negativemg/dL (NEG) Urine Ketones (Stick) Negativemg/dL (NEG) Urine Blood Negative (NEG) Urine Nitrite Negative (NEG) Urine Bilirubin Negative (NEG) Urine Urobilinogen Dipstick 1.0mg/dL (0.2 mg/dL) Urine Leukocyte Esterase Moderate (NEG) Urine RBC Occ/HPF (0-2) Urine WBC 5-10/HPF (0-4) Urine Squamous Epithelial Cells Mod/LPF Urine Bacteria Few/HPF (0-FEW) Urine Mucus Slight/LPF Test 07/26/16 18:39 07/26/16 20:27 07/26/16 21:39 07/27/16 00:57 Glucose (Fingerstick) 539mg/dL (70-99) 425mg/dL (70-99) 391mg/dL (70-99) 242mg/dL (70-99) Test 07/27/16 01:10 4/5/17 02:11 07/27/16 06:07 07/27/16 08:13 White Blood Count 14.6x10^3/uL (4.0-11.0) Red Blood Count 4.10x10^6/uL (3.50-5.40) Hemoglobin 11.2g/dL (12.0-15.5) Hematocrit 34.3% (36.0-47.0) Mean Corpuscular Volume 84fL (79-100) Mean Corpuscular Hemoglobin 27pg (25-35) Mean Corpuscular Hemoglobin Concent 33g/dL (31-37) Red Cell Distribution Width 14.1% (11.5-14.5) Platelet Count 128x10^3/uL (140-400) Neutrophils (%) (Auto) 80% (31-73) Lymphocytes (%) (Auto) 13% (24-48) Monocytes (%) (Auto) 6% (0-9) Eosinophils (%) (Auto) 0% (0-3) Basophils (%) (Auto) 1% (0-3) Neutrophils # (Auto) 11.7x10^3uL (1.8-7.7) Lymphocytes # (Auto) 1.9x10^3/uL (1.0-4.8) Monocytes # (Auto) 0.9x10^3/uL (0.0-1.1) Eosinophils # (Auto) 0.0x10^3/uL (0.0-0.7) Basophils # (Auto) 0.1x10^3/uL (0.0-0.2) Sodium Level 133mmol/L (136-145) Potassium Level 4.1mmol/L (3.5-5.1) Chloride Level 98mmol/L (98-107) Carbon Dioxide Level 26mmol/L (21-32) Anion Gap 9 (6-14) Blood Urea Nitrogen 14mg/dL (7-20) Creatinine 1.1mg/dL (0.6-1.0) Estimated GFR (Cockcroft-Gault) 49.7 BUN/Creatinine Ratio 13 (6-20) Glucose Level 230mg/dL (70-99) Calcium Level 8.9mg/dL (8.5-10.1) Total Bilirubin 0.2mg/dL (0.2-1.0) Aspartate Amino Transf (AST/SGOT) 14U/L (15-37) Alanine Aminotransferase (ALT/SGPT) 22U/L (14-59) Alkaline Phosphatase 83U/L (46-116) Total Protein 6.6g/dL (6.4-8.2) Albumin 3.0g/dL (3.4-5.0) Albumin/Globulin Ratio 0.8 (1.0-1.7) Glucose (Fingerstick) 187mg/dL (70-99) 82mg/dL (70-99) 116mg/dL (70-99) Laboratory Tests Test 07/26/16 16:56 07/26/16 18:39 07/26/16 20:27 07/26/16 21:39 Glucose (Fingerstick) 448mg/dL (70-99) 539mg/dL (70-99) 425mg/dL (70-99) 391mg/dL (70-99) Test 07/27/16 00:57 07/27/16 01:10 07/27/16 02:11 07/27/16 06:07 Glucose (Fingerstick) 242mg/dL (70-99) 187mg/dL (70-99) 82mg/dL (70-99) White Blood Count 14.6x10^3/uL (4.0-11.0) Red Blood Count 4.10x10^6/uL (3.50-5.40) Hemoglobin 11.2g/dL (12.0-15.5) Hematocrit 34.3% (36.0-47.0) Mean Corpuscular Volume 84fL (79-100) Mean Corpuscular Hemoglobin 27pg (25-35) Mean Corpuscular Hemoglobin Concent 33g/dL (31-37) Red Cell Distribution Width 14.1% (11.5-14.5) Platelet Count 128x10^3/uL (140-400) Neutrophils (%) (Auto) 80% (31-73) Lymphocytes (%) (Auto) 13% (24-48) Monocytes (%) (Auto) 6% (0-9) Eosinophils (%) (Auto) 0% (0-3) Basophils (%) (Auto) 1% (0-3) Neutrophils # (Auto) 11.7x10^3uL (1.8-7.7) Lymphocytes # (Auto) 1.9x10^3/uL (1.0-4.8) Monocytes # (Auto) 0.9x10^3/uL (0.0-1.1) Eosinophils # (Auto) 0.0x10^3/uL (0.0-0.7) Basophils # (Auto) 0.1x10^3/uL (0.0-0.2) Sodium Level 133mmol/L (136-145) Potassium Level 4.1mmol/L (3.5-5.1) Chloride Level 98mmol/L (98-107) Carbon Dioxide Level 26mmol/L (21-32) Anion Gap 9 (6-14) Blood Urea Nitrogen 14mg/dL (7-20) Creatinine 1.1mg/dL (0.6-1.0) Estimated GFR (Cockcroft-Gault) 49.7 BUN/Creatinine Ratio 13 (6-20) Glucose Level 230mg/dL (70-99) Calcium Level 8.9mg/dL (8.5-10.1) Total Bilirubin 0.2mg/dL (0.2-1.0) Aspartate Amino Transf (AST/SGOT) 14U/L (15-37) Alanine Aminotransferase (ALT/SGPT) 22U/L (14-59) Alkaline Phosphatase 83U/L (46-116) Total Protein 6.6g/dL (6.4-8.2) Albumin 3.0g/dL (3.4-5.0) Albumin/Globulin Ratio 0.8 (1.0-1.7) Test 07/27/16 08:13 Glucose (Fingerstick) 116mg/dL (70-99) Brief Hospital Course 66 old who presented with right knee periprosthetic patella fracture and patellar tendon rupture. The patient underwent right knee patellar tendon reconstruction with hamstring allograft under general anesthesia the day of admission. Perioperative antibiotics and DVT prophylaxis were used. Postoperatively physical therapy and case management were consulted. The patient progressed and is stable for discharge. Discharge Information Condition at Discharge: Stable Follow Up: Weeks (2) Disposition/Orders: D/C to Home Scheduled Alendronate Sodium/Vitamin D3 (Fosamax Plus D 70 Mg-2,800 Iu) 1 EACH PO WEEKLY ( Reported) Amlodipine Besylate (Amlodipine Besylate) 2.5 MG PO HS (Reported) Atorvastatin Calcium (Atorvastatin Calcium) 20 MG PO HS (Reported) Calcium Carb & Cit/Vitamin D3 (Calcium + D3 Er Tablet) 1 EACH PO DAILY (Reported ) Carvedilol (Carvedilol) 3.125 MG PO BID (Reported) Escitalopram Oxalate (Escitalopram Oxalate) 10 MG PO HS (Reported) Fenofibrate (Fenofibrate) 160 MG PO DAILY (Reported) Ferrous Sulfate (Ferrous Sulfate) 1 TAB PO BID (Reported) Furosemide (Furosemide) 40 MG PO BID (Reported) Glipizide (Glipizide) 10 MG PO BID (Reported) Insulin Aspart (Novolog) 6 UNITS SQ QID (Reported) Insulin Detemir (Levemir) 25 UNIT SQ HS (Reported) Irbesartan/Hydrochlorothiazide (Irbesartan-Hctz 300-12.5 Mg Tb) 0.5 TAB PO DAILY (Reported) Isosorbide Mononitrate (Isosorbide Mononitrate Er) 60 MG PO DAILY (Reported) Levothyroxine Sodium (Levothyroxine Sodium) 50 MCG PO DAILYAC (Reported) Liraglutide (Victoza 3-Darío) 1.8 MG SQ DAILY (Reported) Loratadine (Loratadine) 10 MG PO DAILY (Reported) Metformin Hcl (Metformin Hcl) 1,000 MG PO BID (Reported) Multivitamin (Multi-Vitamin Daily) 1 EACH PO DAILY (Reported) Naproxen Sodium (Naproxen Sodium) 220 MG PO BID (Reported) Omeprazole (Omeprazole) 20 MG PO DAILY (Reported) Potassium Chloride (K-Tab ER) 20 MEQ PO DAILY (Reported) Scheduled PRN Nitroglycerin (Nitrostat) 0.4 MG SL PRN Q5MIN PRN PRN CHEST PAIN (Reported) Discontinued Medications Aspirin (Aspir 81) 81 MG PO (Reported) [place]-3 Fatty Acids/Fish Oil (Fish Oil 1,000 Mg Capsule) 1 EACH PO BID (Reported ) Patient Instructions Patient Instructions Patient Instructions Continue to WBAT with walker with knee brace in place. F/U with [facility] in 10- 14 days. Call for appointment. Continue DVT prophylaxis with aspirin 325mg twice daily. LUIS ARMANDO ROQUE Jul 27, 2016 11:24
[2016-07-27 13:00] VITALS: BP 120/64
[2016-07-27] MEDS ORDERED: BISACODYL 10 MG SUPP.RECT. PR PRN (16:00)
[2016-07-27] MEDS ORDERED: INSULIN DETEMIR 300 UNITS/3 ML INSULN.PEN. SQ SCH (21:00)
[2016-08-02] MEDS ORDERED: ALENDRONATE SODIUM PO SCH (09:00)
[2016-08-02] MEDS ORDERED: [UNRECOGNIZED DRUG - OTHER] PO SCH (09:00)
[2016-08-02] MEDS ORDERED: VITAMIN D3 PO SCH (09:00)
== END 2016-07-27 13:25 | disposition home or self-care (01) | DRG 501 ==
LOC: SURG 06:06 → 4 SOUTHEST 10:27
PROVIDERS: ADMIT Orthopaedic Surgery; ATTEND Orthopaedic Surgery
PROC: 0LBQ0ZZ Excision of Right Knee Tendon, Open Approach (ICD-10-PCS; 2016-07-26)
PROC: 0LUQ07Z Supplement Right Knee Tendon with Autologous Tissue Substitute, Open Approach (ICD-10-PCS; principal; 2016-07-26 07:10)
DX: M97.11XA Periprosthetic fracture around internal prosthetic right knee joint, initial encounter (principal); E44.0 Moderate protein-calorie malnutrition; E11.65 Type 2 diabetes mellitus with hyperglycemia; E66.9 Obesity, unspecified; I11.0 Hypertensive heart disease with heart failure; I50.9 Heart failure, unspecified; J44.9 Chronic obstructive pulmonary disease, unspecified; J45.909 Unspecified asthma, uncomplicated; Z68.37 Body mass index [BMI] 37.0-37.9, adult; Z82.3 Family history of stroke; Z82.49 Family history of ischemic heart disease and other diseases of the circulatory system; Z96.651 Presence of right artificial knee joint; S76.111A Strain of right quadriceps muscle, fascia and tendon, initial encounter; X58.XXXA Exposure to other specified factors, initial encounter; Y93.89 Activity, other specified; Y92.89 Other specified places as the place of occurrence of the external cause; Y99.8 Other external cause status; Z90.49 Acquired absence of other specified parts of digestive tract; Z90.710 Acquired absence of both cervix and uterus
CPT/HCPCS: 36415; 73560; 80053; 81001; 82947; 83036; 85027; 86850; 86900; 86901; 87086; 94640; 94760; C1713; J0171; J0690; J1100; J1815; J1885; J2270; J2405; J2704; J2795; J3010; J7030; J7120; J7620; S0028; 97116

== ENCOUNTER → 2017-04-19 | Outpatient (CLI) | payer MEDICARE, BC ==
[~2017-04-19] MED LIST changes: -CEFAZOLIN 2GM PREMIX 50 ML IV PRN; -ESCI10TA PO; +ESCITALOPRAM OX10 MG PO; -HYDROCODONE/APAP 7.5/325MG TABLET. PO PRN; +METF-620 PO; -METF10002 PO; -MORPHINE SULFATE 5 MG, KETOROLAC TROMETHAMINE 30 MG, ROPIVacaine 0.5% PF 60 ML, EPINEPH... INT ART ONE; +NAPR-634 PO; +NAPR-677 PO; -NAPR220T25 PO; -NAPR550T3 PO; -OMEP20TA PO; +OMEP20TA8 PO; -TRANEXAMIC ACID 1,000 MG in IV NORMAL SALINE 50ML 50 ML INJ ONE
--- NOTE | 2017-04-19 12:09 | KCIC ---
DATE: April 19, 2017 EXAM: MAMMO KLEVER SCREENING BILATERAL HISTORY: Screening study. COMPARISON: 2014 and 2016 This study was interpreted with the benefit of Computerized Aided Detection (CAD). 2-D digital mammographic views of both breasts were performed in the CC and MLO projections. 3-D digital tomosynthesis of both breasts were performed in the CC and MLO projections and reviewed on a computer workstation. FINDINGS: The breast parenchyma is replaced with adipose tissue. There are no dominant suspicious masses, suspicious microcalcifications or evidence of architectural distortion. IMPRESSION: No mammographic indicators for malignancy. BI-RADS CATEGORY: 1 NEGATIVE RECOMMENDED FOLLOW-UP: 12M 12 MONTH FOLLOW-UP PQRS compliance statement: Patient information was entered into a reminder system with a target due date April 20, 2018 for the next mammogram. Mammography is a sensitive method for finding small breast cancers, but it does not detect them all and is not a substitute for careful clinical examination. A negative mammogram does not negate a clinically suspicious finding and should not result in delay in biopsying a clinically suspicious abnormality. "Our facility is accredited by the [employer] Mammography Program." The patient's breast density may affect the ability of mammography to detect breast cancer. There are 4 categories of breast density, A, B, C and D. Breast density A means that most of the breast tissue is replaced with adipose tissue and therefore is not dense. Breast density B means that the breast tissue is mildly dense and scattered. Breast density C means that the breast tissue is heterogeneously dense. Breast density D means that the breast tissue is very dense. Breast densities especially C and D may decrease the sensitivity of mammography to detect breast cancer. Therefore, the patient may benefit from 3-D breast mammography (3D breast tomography) as a part of their screening mammogram. Insurance may or may not pay for this additional imaging. The patient's breast density based on today's mammogram is category A.
== END | disposition home or self-care (01) ==
LOC: KCIC MAMMO 10:46
PROVIDERS: ATTEND Family Medicine
DX: Z12.31 Encounter for screening mammogram for malignant neoplasm of breast (principal)
CPT/HCPCS: 77063; G0202; 77067

== ENCOUNTER → 2018-08-10 | Outpatient (CLI) | payer MEDICARE, BC ==
[~2018-08-10] MED LIST changes: -AMLO2.5T PO; +AMLO2.5T5 PO; +CARV3.1210 PO; -CARV3.122 PO; -FERR-26 PO; +FERR325T14 PO; -HYDR-2762 PO; +HYDR-2765 PO; -ISOS120T2 PO; +ISOS120T4 PO; -METF-620 PO; +METF10007 PO; +OMEP20CA10 PO; -OMEP20CA9 PO
--- NOTE | 2018-08-10 17:23 | KCIC ---
MRI study of the right knee without contrast Clinical indications: Right knee pain. History of arthroplasty and 2 previous surgeries. Loosening of the proximal fibular screw and ununited fracture fragments of the superior pole of the patella seen on recent radiographic series dated August 06, 2017. COMPARISON: Radiographic series dated August 04, 2018. TECHNIQUE: Noncontrast MRI sequences of the right knee were performed in all 3 planes. Metallic surgical hardware suppression was utilized. FINDINGS: A total right knee arthroplasty is evident. Even given metallic surgical hardware suppression, there is significant paramagnetic susceptibility artifact which obscures the right knee joint and proximal tibia and distal femur and the patella. There is paramagnetic susceptibility artifact of the proximal fibula related to the fibular screw. Mild bone marrow edema is seen here on T2-weighted images but this could be artifactual. Radiolucency was seen around this screw on the radiographic series suggesting loosening of this screw. There is bone marrow signal changes of the distal femoral shaft and metaphysis. 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 No fracture or marrow infiltrative process is seen elsewhere. Again the patella is completely obscured and so the fracture fragments seen on the radiographic study are not seen by MRI. There is soft tissue thickening of the patellar tendon area. The patellar tendon is obscured but is partially visualized. What is visualized appears intact. If there is a question of patellar tendon disruption, this may be further evaluated with ultrasonography if clinically needed. The quadriceps tendon insertion is also distorted by artifact. No fluid collection or abscess is seen elsewhere. No muscle edema is seen elsewhere. No distended Gonzalez's cyst is seen. IMPRESSION: Nonunited fracture fragments of the superior pole of the patella seen on radiographic series. Loosening of the horizontal fibular screw seen within the proximal right fibula seen by radiographic study. Soft tissue thickening of the patellar tendon area. Given the significant paramagnetic susceptibility artifact related to the surgical hardware, no other significant abnormality of the right knee area can be seen by MRI. Electronically signed by: Zeke Estevez MD (08/10/2018 5:20 PM) [id number]
== END | disposition home or self-care (01) ==
LOC: KCIC MRI 15:35
PROVIDERS: ATTEND Orthopaedic Surgery
DX: S82.091K Other fracture of right patella, subsequent encounter for closed fracture with nonunion (principal); X58.XXXD Exposure to other specified factors, subsequent encounter; Z96.651 Presence of right artificial knee joint
CPT/HCPCS: 73721

== ENCOUNTER → 2018-11-20 | Outpatient (CLI) | payer MEDICARE, BC ==
[2018-11-20 14:07] LABS: BASO # 0.1 x10^3/uL (0.0-0.2); BASO % 1 % (0-3); EOS # 0.2 x10^3/uL (0.0-0.7); EOS % 2 % (0-3); HEMATOCRIT 36.8 % (36.0-47.0); HEMOGLOBIN 12.1 g/dL (12.0-15.5); LYMPH # 2.4 x10^3/uL (1.0-4.8); LYMPH % 23 % (24-48); MEAN CORPUSCULAR HEMOGLOBIN 28 pg (25-35); MEAN CORPUSCULAR HGB CONC 33 g/dL (31-37); MEAN CORPUSCULAR VOLUME 84 fL (79-100); MONO # 0.6 x10^3/uL (0.0-1.1); MONO % 6 % (0-9); NEUT # 7.1 x10^3/uL (1.8-7.7); NEUT % 68 % (31-73); PLATELET COUNT 202 x10^3/uL (140-400); RED BLOOD COUNT 4.36 x10^6/uL (3.50-5.40); RED CELL DISTRIBUTION WIDTH 15.2 % (11.5-14.5); WHITE BLOOD COUNT 10.5 x10^3/uL (4.0-11.0)
[2018-11-20 14:22] LABS: ALBUMIN 3.3 g/dL (3.4-5.0); CALCIUM 9.5 mg/dL (8.5-10.1); CREATININE 0.8 mg/dL (0.6-1.0); GFR 71.3; POTASSIUM 4.6 mmol/L (3.5-5.1)
[2018-11-20 14:59] LABS: BILIRUBIN,URINE NEGATIVE (NEG); CLARITY,URINE CLEAR; COLOR,URINE YELLOW; NITRITE,URINE NEGATIVE (NEG); PROTEIN,URINE NEGATIVE (NEG-TRACE); UROBILINOGEN,URINE 0.2 mg/dL (0.2 mg/dL)
[2018-11-20 15:03] LABS: BACTERIA,URINE 0 /HPF (0-FEW); RBC,URINE 0 /HPF (0-2); SQUAMOUS EPITHELIAL CELL,UR FEW /LPF; WBC,URINE OCC /HPF (0-4)
[2018-11-21 03:12] LABS: HEMOGLOBIN A1C 8.4 % (4.8-5.6)
== END | disposition home or self-care (01) ==
LOC: SURGPAT 13:13
PROVIDERS: ATTEND Orthopaedic Surgery
DX: Z01.818 Encounter for other preprocedural examination (principal); S82.041D Displaced comminuted fracture of right patella, subsequent encounter for closed fracture with routine healing; Z88.5 Allergy status to narcotic agent; Z88.8 Allergy status to other drugs, medicaments and biological substances; X58.XXXD Exposure to other specified factors, subsequent encounter; Z79.899 Other long term (current) drug therapy
CPT/HCPCS: 36415; 80048; 81001; 82040; 82306; 83036; 85025; 85610; 85651; 85730; 87086; 87186; 87641

== ENCOUNTER 2019-01-08 08:05 | Outpatient (CLI) | payer MEDICARE, BC ==
[~2019-01-08] VITALS: Ht 153.7 cm; Wt 81.6 kg
[2019-01-08] VITALS (10 sets, daily range): BP systolic 111–128; BP diastolic 55–76
[~2019-01-08 08:05] MED LIST changes: +ASPI-630 PO; +FLUT1DIS3 IH; +INSU100I17 SQ; +MONT10TA49 PO
[2019-01-08 08:37] LABS: BASO # 0.1 x10^3/uL (0.0-0.2); BASO % 1 % (0-3); EOS # 0.2 x10^3/uL (0.0-0.7); EOS % 3 % (0-3); HEMOGLOBIN 12.2 g/dL (12.0-15.5); LYMPH # 2.5 x10^3/uL (1.0-4.8); LYMPH % 27 % (24-48); MEAN CORPUSCULAR HEMOGLOBIN 27 pg (25-35); MEAN CORPUSCULAR HGB CONC 33 g/dL (31-37); MEAN CORPUSCULAR VOLUME 83 fL (79-100); MONO # 0.5 x10^3/uL (0.0-1.1); MONO % 6 % (0-9); NEUT # 5.7 x10^3/uL (1.8-7.7); NEUT % 64 % (31-73); PLATELET COUNT 215 x10^3/uL (140-400); RED BLOOD COUNT 4.46 x10^6/uL (3.50-5.40)
[2019-01-08 08:49] LABS: PROTHROMBIN TIME PATIENT 11.5 SEC (11.7-14.0)
[2019-01-08] MEDS ORDERED: IOHEXOL 240 MG/ML 50ML VIAL. ONE (09:10)
[2019-01-08] MEDS ORDERED: LIDOCAINE WITH 8.4% SOD BICARB 3 ML DISP.SYRIN. ONE (09:10)
[2019-01-08] MEDS ORDERED: fentaNYL PF VIAL 100 MCG/2 ML VIAL ONE (09:29)
[2019-01-08] MEDS ORDERED: MIDAZOLAM HCL/PF 5 MG/5 ML VIAL. ONE (09:29)
[2019-01-08] MEDS ORDERED: ONDANSETRON PF 4 MG/2 ML VIAL. ONE (09:46)
[2019-01-08] MEDS ORDERED: LIDOCAINE WITH 8.4% SOD BICARB 3 ML DISP.SYRIN. IJ ONE (10:00)
[2019-01-08] MEDS ORDERED: IOHEXOL 240 MG/ML 50ML VIAL. IJ ONE (10:00)
[2019-01-08] MEDS ORDERED: fentaNYL PF VIAL 100 MCG/2 ML VIAL IV ONE (10:00)
[2019-01-08] MEDS ORDERED: ONDANSETRON PF 4 MG/2 ML VIAL. IV ONE (10:00)
[2019-01-08] MEDS ORDERED: MIDAZOLAM HCL/PF 5 MG/5 ML VIAL. IV ONE (10:00)
[2019-01-08] MEDS ORDERED: CONTRAST GIVEN. MC PRN (10:15)
--- NOTE | 2019-01-08 10:35 | PDOC ---
MODERATE SEDATION ASSESSMENT RISKS/ALTERNATIVES Risks/Alternatives Risks and alternatives of this type of sedation and procedure discussed with: RISK/ALTERNATIVES: Patient H & P ON CHART H & P H & P on chart and reviewed for co-morbid conditions and appropriate labs. H&P ON CHART: Yes STATUS PREG STATUS ASSESSED: Yes MEDS/ALLERGIES REVIEWED Meds/Allergies Reviewed Medications and Allergies including time and route of recently administered narcotics and sedatives. MEDS/ALLERGIES REVIEWED: Yes ASA RATING ASA RATING: I AIRWAY ASSESSMENT Airway Assessment Airway patency, oral function limitations, presence of caps, crowns, dentures, partials, and ability to extend neck assessed. AIRWAY ASSESSMENT: Yes MALLAMPATI SCORE MALLAMPATI SCORE: II PRE-SEDATION ASSESSMENT PRE-SEDATION ASSESSMENT: Yes NICKOLAS GIBBONS MD Jan 08, 2019 10:35
--- NOTE | 2019-01-10 07:50 | RAD ---
Fluoroscopically guided vertebroplasty Indication:T 12 compression fracture with severe pain refractory to conservative treatment measures. Fluoro time:9.9 min Dose area product: 14.7 Gycm2 Moderate sedation: The patient was appropriately monitored by a qualified independent observer throughout the course of the moderate sedation. [id number] sedation time:44 min Consent: The risks and benefits of the procedure were discussed with the patient. Informed consent was obtained. The patient was brought to the fluoroscopy suite and placed in the prone position. A timeout procedure was performed. Preprocedural antibiotics were administered. Procedure: The overlying skin was prepped and draped in the usual sterile fashion. All elements of maximal sterile barrier technique including the use of a cap, mask, sterile gown, sterile gloves, large sterile sheet, appropriate hand hygiene, and 2% chlorhexidine for cutaneous antisepsis (or acceptable alternative antiseptic per current guidelines) were followed for this procedure. Using a left transpedicular approach, and direct fluoroscopic guidance, a trocar needle was advanced to the posterior third of the targeted vertebral body. A curved cement delivery needle was advanced into the contralateral vertebral body. Contrast opacified polymethylmethacrylate was then very slowly and carefully introduced through the vertebral augmentation needle, using strict fluoroscopic control. Once adequate filling had been achieved the needles were removed and manual pressure was held. No significant extravasation or complication was identified. Sterile dressing was applied. Patient tolerated the procedure well, without apparent complication. Impression: Fluoroscopically guided vertebroplasty at T12
== END 2019-01-08 13:30 | disposition home or self-care (01) ==
LOC: INTRAD 08:05
PROVIDERS: ATTEND Surgery
DX: M48.54XA Collapsed vertebra, not elsewhere classified, thoracic region, initial encounter for fracture (principal); Z79.899 Other long term (current) drug therapy; Z79.01 Long term (current) use of anticoagulants
CPT/HCPCS: 22510; 36415; 85025; 85610; 99152; 99153; C1713; C1758; J0690; J2250; J2405; J3010

== ENCOUNTER → 2019-06-04 | Outpatient (CLI) | payer MEDICARE, BC ==
[2019-01-08 13:00] VITALS: BP 113/67
[~2019-06-04] MED LIST changes: +CALC-71 PO; +GLYB5TAB3 PO; +IRBE300T23 PO; -NITR0.4T SL; +NITR0.4T24 SL; +OMEG100021 PO; -OMEP20CA10 PO; +OMEP20CA16 PO
[2019-06-04 12:50] LABS: PROTHROMBIN TIME PATIENT 11.8 SEC (11.7-14.0)
[2019-06-04 12:51] LABS: BASO # 0.1 x10^3/uL (0.0-0.2); BASO % 1 % (0-3); EOS # 0.2 x10^3/uL (0.0-0.7); EOS % 2 % (0-3); HEMATOCRIT 38.1 % (36.0-47.0); HEMOGLOBIN 12.3 g/dL (12.0-15.5); LYMPH # 2.7 x10^3/uL (1.0-4.8); LYMPH % 29 % (24-48); MEAN CORPUSCULAR HEMOGLOBIN 27 pg (25-35); MEAN CORPUSCULAR HGB CONC 32 g/dL (31-37); MEAN CORPUSCULAR VOLUME 85 fL (79-100); MONO # 0.6 x10^3/uL (0.0-1.1); MONO % 6 % (0-9); NEUT # 5.7 x10^3/uL (1.8-7.7); NEUT % 62 % (31-73); PLATELET COUNT 200 x10^3/uL (140-400); RED BLOOD COUNT 4.51 x10^6/uL (3.50-5.40); RED CELL DISTRIBUTION WIDTH 15.6 % (11.5-14.5); WHITE BLOOD COUNT 9.3 x10^3/uL (4.0-11.0)
[2019-06-04 12:52] LABS: ALBUMIN 3.5 g/dL (3.4-5.0); CALCIUM 9.1 mg/dL (8.5-10.1); CREATININE 0.7 mg/dL (0.6-1.0); POTASSIUM 4.3 mmol/L (3.5-5.1)
--- NOTE | 2019-06-04 13:47 | RAD ---
CHEST PA LATERAL Clinical indications: Preoperative evaluation for right knee replacement. The patient is 69 years old. COMPARISON: July 22, 2016. Findings: No acute lung infiltrate or pleural effusion or pulmonary edema or lung mass or pneumothorax is seen. The heart size, pulmonary vasculature, mediastinum and both meng are unremarkable. Right glenohumeral joint arthroplasty is evident. There is a new finding of subacute healing fractures of the anterior aspect of the right fourth and fifth and sixth ribs. There is a compression fracture of T12. Methylmethacrylate is present within it consistent with a vertebroplasty. Compression fracture was seen on a previous outside lumbar spine MRI study dated December 17, 2018. Impression: No acute lung infiltrate. New finding of subacute healing fractures of the anterior right rib cage. Electronically signed by: Zeke Estevez MD (06/04/2019 1:44 PM) [facility]
[2019-06-05 00:08] LABS: HEMOGLOBIN A1C 7.2 % (4.8-5.6)
--- NOTE | 2019-06-10 08:30 | NUR ---
Medical clearance from Dr Woodard is pending cardiac clearance. Faxed cardiac clearance from Dr Salinas to Dr Carroll's office.
--- NOTE | 2019-06-12 09:17 | NUR ---
Left a message on Dr Woodard's nursing line regarding need of medical clearance and that cardiac clearance was forwarded on 06/10.
== END | disposition home or self-care (01) ==
LOC: SURGPAT 11:46
PROVIDERS: ATTEND Orthopaedic Surgery
DX: Z01.818 Encounter for other preprocedural examination (principal); S82.041D Displaced comminuted fracture of right patella, subsequent encounter for closed fracture with routine healing; S22.41XD Multiple fractures of ribs, right side, subsequent encounter for fracture with routine healing; S22.089D Unspecified fracture of T11-T12 vertebra, subsequent encounter for fracture with routine healing; Z88.8 Allergy status to other drugs, medicaments and biological substances; X58.XXXD Exposure to other specified factors, subsequent encounter
CPT/HCPCS: 36415; 71046; 80048; 82040; 82306; 83036; 85025; 85610; 85651; 85730; 87641

== ENCOUNTER → 2020-08-14 | Outpatient (CLI) | payer MEDICARE, BC ==
[2019-06-20 12:14] VITALS: BP 136/71
[~2020-08-14] MED LIST changes: +LORA-169 PO; -LORA10TA55 PO
--- NOTE | 2020-08-15 09:23 | KCIC ---
EXAM: Lumbar spine MRI without contrast. HISTORY: Lumbar radiculopathy. Fall. TECHNIQUE: Multiplanar, multisequence magnetic resonance imaging of the lumbar spine was performed wi thout contrast. COMPARISON: None. FINDINGS: There is mild lumbar scoliosis and hyperlordosis. There is grade 1 anterolisthesis of L5 on S1, measuring 3 mm. There is a moderate to severe chronic anterior wedge compression deformity with prominent endplate Schmorl's nodes at T12. There is also a mild chronic superior endplate depression with large Schmorl's node at L1. No acute or subacute fracture is seen. There is an interspinous deco mpression device at L3-L4. The conus terminates at L1. There is no suspicious osseous lesion. There i s multilevel endplate remodeling, disc desiccation and disc space narrowing, predominantly at L5-S1. At T11-T12, there is a disc bulge and endplate remodeling. There is moderate right and mild left face t arthropathy. There is mild bilateral foraminal and central canal stenosis. At T12-L1, there is a disc bulge and endplate remodeling. There is mild left foraminal stenosis. At L1-L2, there is no stenosis. At L2-L3, there is a disc bulge and endplate remodeling. There is mild bilateral facet arthropathy. T here is hypertrophy of the ligament of flavum. There is mild right foraminal stenosis. There is minim al central canal stenosis. At L3-L4, there are left greater than right foraminal to lateral disc protrusion superimposed on a di sc bulge and endplate remodeling. There is [id number] right and moderate left facet arthropathy . There is hypertrophy of the ligament of flavum. There is mild right and [id number] left shea inal stenosis with abutment the exiting left L3 nerve root. There is mild to moderate central canal s tenosis. At L4-L5, there is a left foraminal to extra foraminal disc protrusion superimposed on a disc bulge a nd endplate remodeling. There is moderate right and severe left facet arthropathy. There is hypertrop hy of the ligamentum flavum. There is mild bilateral foraminal stenosis with abutment of the exiting L4 nerve roots. There is moderate central canal stenosis. At L5-S1, there are bilateral foraminal to extra disc protrusions superimposed on a disc bulge and en dplate remodeling. There is moderate lateral facet arthropathy. There is grade 1 anterolisthesis. The re is mild bilateral foraminal stenosis with abutment the exiting L5 nerve roots. IMPRESSION: 1. Multilevel degenerative change involving the lumbar spine and lower thoracic spine, described in d etail above. This is associated with foraminal and central canal stenosis at the aforementioned level s. 2. Interspinous to compression device at L3-L4. 3. Lumbar scoliosis and hyperlordosis and grade 1 anterolisthesis of L5 on S1. 4. Moderate to severe chronic wedge compression deformity with endplate Schmorl's nodes at T12 and mi ld chronic superior endplate depression with Schmorl's node at L1. Electronically signed by: Marli Pham MD (08/15/2020 9:20 AM) [id number]
== END ==
LOC: KCIC MRI 14:52
PROVIDERS: ATTEND Nurse Practitioner Family
DX: M47.25 Other spondylosis with radiculopathy, thoracolumbar region (principal); M43.17 Spondylolisthesis, lumbosacral region; M41.87 Other forms of scoliosis, lumbosacral region
CPT/HCPCS: 72148

== ENCOUNTER 2021-01-05 11:16 | Observation (INO) | payer MEDICARE, BC ==
[~2021-01-05] VITALS: Ht 165.1 cm; Wt 81.9 kg
[2021-01-05] MEDS ORDERED: fentaNYL PF VIAL 100 MCG/2 ML VIAL IVP ONE (11:45)
--- NOTE | 2021-01-05 11:56 | RAD ---
EXAM: Right shoulder, 3 views; chest, single view. HISTORY: Pain. Fall. COMPARISON: 11/16/2020 FINDINGS: A frontal view of the chest and 3 views of the right shoulder obtained. There is no infiltr ate, pleural effusion or pneumothorax. There is a prominent cardiac silhouette, likely accentuated du e to supine imaging technique. There is a right shoulder arthroplasty in expected position. There is no evidence of arthroplasty loosening. There is mild acromioclavicular joint spurring. IMPRESSION: 1. No acute pulmonary finding. 2. Right shoulder arthroplasty in expected position. 3. Mild right acromioclavicular joint osteoarthritis. Electronically signed by: Marli Pham MD (01/05/2021 11:54 AM) [id number]
--- NOTE | 2021-01-05 13:03 | PHYS DOC ---
Past Medical History Past Surgical History: Knee Replacement, Other Additional Past Surgical Histo: back Smoking Status: Never Smoker Alcohol Use: None General Adult EDM: Chief Complaint: MECHANICAL FALL HPI: HPI: Patient is a 70 year old female who presents with states she was walking to the restroom at a food establishment when she suddenly fell. She states she does not remember tripping. She states that she does have frequent falls but does not know why. She states that she does not know why she fell. She denies syncope but then she states she is unsure. Patient had a recent lumbar surgery at [facility] on December 18. Patient did hit her head who complains of a headache to the back of the head. She is on a baby aspirin. She also complains of lumbar spinal pain and some neck pain. She is also complaining of right shoulder pain. She denies having felt sick or abnormal prior to falling. She denies having chest pain or shortness of breath, dizziness, vision loss, focal weakness, nausea, vomiting, abdominal pain, loss of bowel or bladder, numbness or tingling urinary symptoms, fever, cough. She is moving all of her extremities and her bilateral legs. Patient has a history of diabetes, GERD, high blood pressure, hypothyroidism, allergies, anxiety, wearing 3 L of oxygen at night, DE, heart cath, knee replacement, heart failure, right shoulder replacement, cataracts, asthma. Review of Systems: Review of Systems: Constitutional: Denies fever or chills. [] Eyes: Denies change in visual acuity. [] HENT: Denies nasal congestion or sore throat. [] Respiratory: Denies cough or shortness of breath. [] Cardiovascular: Denies chest pain or edema. [] GI: Denies abdominal pain, nausea, vomiting, bloody stools or diarrhea. [] : Denies dysuria. [] Musculoskeletal: + Lower back pain or + right shoulder joint pain. + Fall. + Neck pain [] Integument: Denies rash. [] Neurologic: +headache, denies focal weakness or sensory changes. [] Endocrine: Denies polyuria or polydipsia. [] Lymphatic: Denies swollen glands. [] Psychiatric: Denies depression or anxiety. [] Heart Score: C/O Chest Pain: No Risk Factors: Risk Factors: DM, Current or recent (<one month) smoker, HTN, HLP, family history of CAD, obesity. Risk Scores: Score 0 - 3: 2.5% MACE over next 6 weeks - Discharge Home Score 4 - 6: 20.3% MACE over next 6 weeks - Admit for Clinical Observation Score 7 - 10: 72.7% MACE over next 6 weeks - Early Invasive Strategies Current Medications: Current Medications Medications (Trade) Dose Ordered Sig/Petey Start Time Stop Time Status Last Admin Dose Admin Fentanyl Citrate (Fentanyl 2ml Vial) 50 mcg 1X ONCE 01/05/21 11:45 01/05/21 11:46 DC 01/05/21 12:41 50 MCG Allergies: Allergies: Allergies Coded Allergies Type Severity Reaction Last Updated Verified niacin Allergy Intermediate Rash 01/05/21 Yes silver Allergy Intermediate RASH/BLISTERS; AQUACEL AG DRESSING 01/05/21 Yes codeine Adverse Reaction Intermediate Nausea and Vomiting 01/05/21 Yes nifedipine Adverse Reaction Intermediate Nausea and Vomiting 01/05/21 Yes oxycodone Adverse Reaction Intermediate HEADACHE 01/05/21 Yes propoxyphene Adverse Reaction Intermediate passed out 01/05/21 Yes Physical Exam: PE: Constitutional: Well developed, well nourished, no acute distress, non-toxic appearance. [] HENT: Normocephalic, atraumatic, bilateral external ears normal, oropharynx moist, no oral exudates, nose normal. [] Eyes: PERRLA, EOMI, conjunctiva normal, no discharge. [] Neck: Normal range of motion, cervical tenderness, supple, no stridor. [] Cardiovascular:Heart rate regular rhythm, no murmur [] Lungs & Thorax: Bilateral breath sounds clear to auscultation [] Abdomen: Bowel sounds normal, soft, no tenderness, no masses, no pulsatile masses. [] Skin: Warm, dry, no erythema, no rash. [] Back: Lumbar tenderness, no CVA tenderness. [] Extremities: No tenderness, no cyanosis, no clubbing, ROM intact, no edema. [] Neurologic: Alert and oriented X 3, normal motor function, normal sensory function, no focal deficits noted. [] Psychologic: Affect normal, judgement normal, mood normal. [] Current Patient Data: Vital Signs: Vital Signs Date Time Temp Pulse Resp B/P (MAP) Pulse Ox O2 Delivery O2 Flow Rate FiO2 01/05/21 12:41 20 99 Nasal Cannula 2.0 01/05/21 11:20 98.5 69 133/60 (84) 98.5 EKG: EK and read by Dr. Hammer as sinus rhythm and no STEMI Radiology/Procedures: Radiology/Procedures: [] Impression: [facility] [address] [place] [address] IMAGING REPORT Signed PATIENT: JOSE CHARLES ACCOUNT: [id number] : 1950 LOCATION: ER AGE: 70 SEX: F EXAM STATUS: REG ER ORD. PHYSICIAN: ALIRIO INIGUEZ APRN REASON: fall, pain PROCEDURE: SHOULDER 2+V RIGHT EXAM: Right shoulder, 3 views; chest, single view. HISTORY: Pain. Fall. COMPARISON: 11/16/2020 FINDINGS: A frontal view of the chest and 3 views of the right shoulder obtained. There is no infiltrate, pleural effusion or pneumothorax. There is a prominent cardiac silhouette, likely accentuated due to supine imaging technique. There is a right shoulder arthroplasty in expected position. There is no evidence of arthroplasty loosening. There is mild acromioclavicular joint spurring. IMPRESSION: 1. No acute pulmonary finding. 2. Right shoulder arthroplasty in expected position. 3. Mild right acromioclavicular joint osteoarthritis. Electronically signed by: Marli Mondragon MD (01/05/2021 11:54 AM) [id number] DICTATED and SIGNED BY: MARLI MONDRAGON MD DATE: 01/05/21 [id number] [facility] [address] [place] [address] IMAGING REPORT Signed PATIENT: JOSE CHARLES ACCOUNT: [id number] : 1950 LOCATION: ER AGE: 70 SEX: F EXAM STATUS: REG ER ORD. PHYSICIAN: ALIRIO INIGUEZ APRN REASON: fall, pain, aspirin use PROCEDURE: CT HEAD AND CERVICAL SPINE WO CT HEAD AND C-SPINE WO Clinical indications: Reason: fall, pain, aspirin use NONCONTRAST HEAD CT Technique: Noncontrast axial cross sectional scanning of the head was performed. PQRS compliance Statement One or more of the following individualized dose reduction techniques were utilized for this study: 1. Automated exposure control 2. Adjustment of the mA and/or kV according to patient size 3. Use of iterative reconstruction technique Findings: No acute intracranial hemorrhage or midline shift or mass-effect or hydrocephalus or extra-axial fluid collection is seen. No focal hypodense area or sulci effacement is seen to indicate an acute infarct or edema radiographically. No skull fracture or pneumocephalus is seen. No opacification of the mastoid sinuses or the middle ear cavities is seen. There is complete opacification of the right maxillary sinus. IMPRESSION: No acute intracranial abnormality is seen. Complete opacification of the right maxillary sinus. CERVICAL SPINE CT WITHOUT CONTRAST TECHNIQUE: Noncontrast helical CT scanning of the cervical spine was performed. Multiplanar 2-D reconstructions were generated. FINDINGS: No acute fracture or discitis or lytic process or prevertebral soft tissue swelling is evident. There is moderate degenerative disc space narrowing and endplate spurring at C6-7. No perching of facet joints is seen. Spinous processes are intact. IMPRESSION: No acute fracture. Electronically signed by: Cristino Estevez MD (01/05/2021 1:24 PM) [id number] DICTATED and SIGNED BY: CRISTINO ESTEVEZ MD DATE: 01/05/21 [id number] [facility] [address] [place] [address] IMAGING REPORT Signed PATIENT: JOSE CHARLES ACCOUNT: [id number] : 1950 LOCATION: ER AGE: 70 SEX: F EXAM STATUS: REG ER ORD. PHYSICIAN: ALIRIO INIGUEZ APRN REASON: fall, pain, recent lumbar surgery PROCEDURE: CT LUMBAR SPINE WO CONTRAST CT LUMBAR SPINE WO Date: 01/05/2021 12:22 PM Indication: fall, pain, recent lumbar surgery Comparison: MRI 08/14/2020. Technique: Helical CT images of the lumbar spine were obtained without contrast. Coronal and sagittal reformatted images were also performed. One or more of the following dose reduction techniques were utilized: Automated exposure control (AEC), Adjustment of mA and/or kV according to patient size, Use of iterative reconstruction technique such as ASiR, CT scan done according to ALARA and image gently/image wisely. Findings: Postsurgical changes of posterior decompression and posterior instrumentation at L5-S1 with interbody spacer. Interspinous process instrumentation at L3-4. The lumbar spine is normally aligned. No acute fracture. Chronic T12 compression deformity with changes of vertebral augmentation. Mild chronic height loss at L1 with superior endplate Schmorl's node. No aggressive lytic or blastic osseous lesion. Mild to moderate multilevel degenerative disc space height loss. Multilevel mild spinal canal stenosis secondary to multilevel disc bulging and facet arthrosis. Multilevel moderate neuroforaminal narrowing. Multilevel mild and moderate facet arthrosis. No soft tissue abnormality within the visualized abdomen or pelvis. The visualized abdominal aorta is normal caliber. Mild aortic atherosclerotic disease. IMPRESSION: No acute osseous abnormality of the lumbar spine. Electronically signed by: Miriam Talley MD (01/05/2021 1:14 PM) [facility] DICTATED and SIGNED BY: MIRIAM TALLEY MD DATE: 01/05/21 [id number] 0 Course & Med Decision Making: Course & Med Decision Making Pertinent Labs and Imaging studies reviewed. (See chart for details) See HPI. Speaks in full clear sentences. Poor historian. Lumbar spinal tenderness and cervical spinal tenderness. Full range of motion of the right shoulder and there is no laxity in the shoulder. No bruising. Tenderness to the patient's upper back of the head which she states she hit it on the ground. There is no abrasion or laceration. PERRLA. She is moving her extremities. Alert and oriented x4. Skin pink warm and dry. CT and chest x-ray came back fine. Blood work is unremarkable. Patient is being admitted for observation since we are unsure if she lost consciousness or what caused this fall. Patient also has a very extensive history. [] Dragon Disclaimer: Dragon Disclaimer: This electronic medical record was generated, in whole or in part, using a voice recognition dictation system. Departure Departure Impression: Primary Impression: Syncopal episodes Qualified Codes: R55 - Syncope and collapse Additional Impression: Fall Qualified Codes: W19.XXXA - Unspecified fall, initial encounter Disposition: 09 ADMITTED INPATIENT Admitting Physician: RADHA Condition: STABLE Referrals: JUAN ANTONIO CARABALLO MD (PCP) ALIRIO INIGUEZ APRN Jan 05, 2021 13:02
--- NOTE | 2021-01-05 13:16 | RAD ---
CT LUMBAR SPINE WO Date: 01/05/2021 12:22 PM Indication: fall, pain, recent lumbar surgery Comparison: MRI 08/14/2020. Technique: Helical CT images of the lumbar spine were obtained without contrast. Coronal and sagitta l reformatted images were also performed. One or more of the following dose reduction techniques were utilized: Automated exposure control (AEC), Adjustment of mA and/or kV according to patient size, Us e of iterative reconstruction technique such as ASiR, CT scan done according to ALARA and image gentl y/image wisely. Findings: Postsurgical changes of posterior decompression and posterior instrumentation at L5-S1 with interbody spacer. Interspinous process instrumentation at L3-4. The lumbar spine is normally aligned. No acute fracture. Chronic T12 compression deformity with reynoso es of vertebral augmentation. Mild chronic height loss at L1 with superior endplate Schmorl's node. N o aggressive lytic or blastic osseous lesion. Mild to moderate multilevel degenerative disc space height loss. Multilevel mild spinal canal stenosi s secondary to multilevel disc bulging and facet arthrosis. Multilevel moderate neuroforaminal narrow ing. Multilevel mild and moderate facet arthrosis. No soft tissue abnormality within the visualized abdomen or pelvis. The visualized abdominal aorta is normal caliber. Mild aortic atherosclerotic disease. IMPRESSION: No acute osseous abnormality of the lumbar spine. Electronically signed by: Carlin Talley MD (01/05/2021 1:14 PM) MADDI
[2021-01-05 13:17] LABS: BASO # 0.1 x10^3/uL (0.0-0.2); BASO % 1 % (0-3); EOS # 0.4 x10^3/uL (0.0-0.7); EOS % 4 % (0-3); HEMATOCRIT 30.8 % (36.0-47.0); HEMOGLOBIN 9.8 g/dL (12.0-15.5); LYMPH # 2.3 x10^3/uL (1.0-4.8); LYMPH % 22 % (24-48); MEAN CORPUSCULAR HEMOGLOBIN 24 pg (25-35); MEAN CORPUSCULAR HGB CONC 32 g/dL (31-37); MEAN CORPUSCULAR VOLUME 77 fL (79-100); MONO # 0.7 x10^3/uL (0.0-1.1); MONO % 7 % (0-9); NEUT # 7.1 x10^3/uL (1.8-7.7); NEUT % 67 % (31-73); PLATELET COUNT 327 x10^3/uL (140-400); RED BLOOD COUNT 4.03 x10^6/uL (3.50-5.40); RED CELL DISTRIBUTION WIDTH 16.9 % (11.5-14.5); WHITE BLOOD COUNT 10.6 x10^3/uL (4.0-11.0)
--- NOTE | 2021-01-05 13:26 | RAD ---
CT HEAD AND C-SPINE WO Clinical indications: Reason: fall, pain, aspirin use NONCONTRAST HEAD CT Technique: Noncontrast axial cross sectional scanning of the head was performed. PQRS compliance Statement One or more of the following individualized dose reduction techniques were utilized for this study: 1. Automated exposure control 2. Adjustment of the mA and/or kV according to patient size 3. Use of iterative reconstruction technique Findings: No acute intracranial hemorrhage or midline shift or mass-effect or hydrocephalus or extra- axial fluid collection is seen. No focal hypodense area or sulci effacement is seen to indicate an ac po infarct or edema radiographically. No skull fracture or pneumocephalus is seen. No opacification of the mastoid sinuses or the middle ear cavities is seen. There is complete opacification of the ri ght maxillary sinus. IMPRESSION: No acute intracranial abnormality is seen. Complete opacification of the right maxillary sinus. CERVICAL SPINE CT WITHOUT CONTRAST TECHNIQUE: Noncontrast helical CT scanning of the cervical spine was performed. Multiplanar 2-D recon structions were generated. FINDINGS: No acute fracture or discitis or lytic process or prevertebral soft tissue swelling is evid ent. There is moderate degenerative disc space narrowing and endplate spurring at C6-7. No perching o f facet joints is seen. Spinous processes are intact. IMPRESSION: No acute fracture. Electronically signed by: Zeke Estevez MD (01/05/2021 1:24 PM) [id number]
[2021-01-05 13:30] LABS: CALCIUM 8.6 mg/dL (8.5-10.1); CREATININE 0.7 mg/dL (0.6-1.0); GFR 82.7; POTASSIUM 4.1 mmol/L (3.5-5.1)
[2021-01-05 13:36] LABS: ALBUMIN/GLOBULIN RATIO 0.8 (1.0-1.7); TOTAL BILIRUBIN 0.2 mg/dL (0.2-1.0); TOTAL PROTEIN 6.9 g/dL (6.4-8.2)
[2021-01-05 14:35] LABS: BILIRUBIN,URINE NEGATIVE (NEG); CLARITY,URINE CLEAR; COLOR,URINE YELLOW; NITRITE,URINE NEGATIVE (NEG); PH,URINE 6.5 (<5.0-8.0); PROTEIN,URINE NEGATIVE (NEG-TRACE)
--- NOTE | 2021-01-05 14:35 | PDOC1 ---
History and Physical Date of Admission Date of Admission DATE: 01/05/21 TIME: 14:33 Identification/Chief Complaint Chief Complaint fall possible loc History of Present Illness History of Present Illness 70 year old female who presented with a fall was walking to the restroom at a food establishment when she suddenly fell. does not remember tripping. does have frequent falls but does not know why. denies syncope but then she states she is unsure. Patient had a recent lumbar surgery at [facility] on December 18. Patient did hit her head who complains of a headache to the back of the head. also complains of lumbar spinal pain and some neck pain./ also complaining of right shoulder pain. 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 ASHD Cardiovascular: CHF, HTN, Other Pulmonary: Asthma, COPD Musculoskeletal: low back pain, Osteoarthritis Endocrine: Diabetes Past Surgical History Past Surgical History: Appendectomy, Cholecystectomy, Total knee replacement, Tonsillectomy, Hysterectomy, Other Family History Family History: Cancer, Heart Disease, Hypertension, Stroke Social History Smoke: No ALCOHOL: none Drugs: None Current Medications Current Medications Current Medications Fentanyl Citrate (Fentanyl 2ml Vial) 50 mcg 1X ONCE IVP Last administered on 01/05/21at 12:41; Start 01/05/21 at 11:45; Stop 01/05/21 at 11:46; Status DC Active Scripts Active Hydrocodone-Apap 7.5-325 (Hydrocodone Bit/Acetaminophen) 1 Tab Tablet 1-2 Tab PO PRN Q4HRS PRN 1-2 tablets by mouth every 4 hours as needed for pain Reported Calcium 600 + Vit D Caplet (Calcium Carbonate/Vitamin D3) 1 Each Tablet 2 Tab PO HS 30 Days Glyburide 5 Mg Tablet 5 Mg PO DAILY Fish Oil 1,000 mg Softgel ([place]-3/Dha/Epa/Fish Oil) 1,000 Mg Capsule 1,000 Mg PO HS Victoza 3-Darío (Liraglutide) 0.6 Mg/0.1 Ml Pen.injctr 1.8 Mg SQ DAILY Irbesartan 300 Mg Tablet 1 Tab PO DAILY Omeprazole 20 Mg Tablet.dr 1 Tab PO DAILY Glipizide 10 Mg Tablet 1 Tab PO BID Advair 250-50 Diskus (Fluticasone/Salmeterol) 1 Each Disk.w.dev 1 Puff IH BID Aspirin 81 Mg Tab.chew 1 Tab PO QODAY Montelukast Sodium Tablet (Montelukast Sodium) 10 Mg Tablet 10 Mg PO DAILY Novolog Flexpen (Insulin Aspart) 100 Unit/1 Ml Insuln.pen 10 Unit SQ QID Fish Oil 1,000 Mg Capsule ([place]-3 Fatty Acids/Fish Oil) 1 Each Capsule 1 Each PO DAILY Naproxen Sodium 550 Mg Tablet 220 Mg PO DAILY Levemir (Insulin Detemir) 100 Unit/1 Ml Vial 30 Unit SQ HS Amlodipine Besylate 2.5 Mg Tablet 2.5 Mg PO HS Nitrostat (Nitroglycerin) 0.4 Mg Tab.subl 0.4 Mg SL PRN Q5MIN PRN Not given. Resume at home as needed for chest pain. Fosamax Plus D 70 Mg-2,800 Iu (Alendronate Sodium/Vitamin D3) 1 Each Tablet 1 Each PO WEEKLY Escitalopram Oxalate 10 Mg Tablet 10 Mg PO HS Atorvastatin Calcium 20 Mg Tablet 20 Mg PO HS Multi-Vitamin Daily (Multivitamin) 1 Each Tablet 1 Each PO DAILY Loratadine 10 Mg Tab.rapdis 10 Mg PO DAILY Isosorbide Mononitrate Er (Isosorbide Mononitrate) 120 Mg Tab.er.24h 120 Mg PO DAILY Levothyroxine Sodium 50 Mcg Tablet 50 Mcg PO DAILYAC Furosemide 40 Mg Tablet 40 Mg PO BID Metformin Hcl 1,000 Mg Tablet 1,000 Mg PO BID MDD Carvedilol (Carvedilol) 3.125 Mg Tablet 3.125 Mg PO BID K-Tab ER (Potassium Chloride) 20 Meq Tablet.er 20 Meq PO DAILY Allergies Allergies: Coded Allergies: niacin (Verified Allergy, Intermediate, Rash, 01/05/21) silver (Verified Allergy, Intermediate, RASH/BLISTERS; Socialare[employer] AG DRESSING, 01/05/21) codeine (Verified Adverse Reaction, Intermediate, Nausea and Vomiting, 01/05/21) nifedipine (Verified Adverse Reaction, Intermediate, Nausea and Vomiting, 01/05/21) oxycodone (Verified Adverse Reaction, Intermediate, HEADACHE, 01/05/21) hallucinates propoxyphene (Verified Adverse Reaction, Intermediate, passed out, 01/05/21) ROS General: No: Chills, Night Sweats, Fatigue, Malaise, Appetite, Other PSYCHOLOGICAL ROS: No: Anxiety, Behavioral Disorder, Concentration difficultie, Decreased libido, Depression, Disorientation, Hallucinations, Hostility, Irritablity, Memory difficulties, Mood Swings, Obsessive thoughts, Physical abuse, Sexual abuse, Sleep disturbances, Suicidal ideation, Other Eyes: No Blurry vision, No Decreased vision, No Double vision, No Dry eyes, No Excessive tearing, No Eye Pain, No Itchy Eyes, No Loss of vision, No Photophobia, No Scotomata, No Uses contacts, No Uses glasses, No Other HEENT: YES: Heacaches; No: Visual Changes, Hearing change, Nasal congestion, Nasal discharge, Oral lesions, Sinus pain, Sore Throat, Epistaxis, Sneezing, Snoring, Tinnitus, Vertigo, Vocal changes, Other ALLERGY AND IMMUNOLOGY: YES: Hives; No: Insect Bite Sensitivity, Itchy/Watery Eyes, Nasal Congestion, Post Nasal Drip, Seasonal Allergies, Other Hematological and Lymphatic: No: Bleeding Problems, Blood Clots, Blood Transfusions, Brusing, Night Sweats, Pallor, Swollen Lymph Nodes, Other ENDOCRINE: No: Breast Changes, Galactorrhea, Hair Pattern Changes, Hot Flashes, Malaise/lethargy, Mood Swings, Palpitations, Polydipsia/polyuria, Skin Changes, Temperature Intolerance, Unexpected Weight Changes, Other Breast: No New/Changing Breast Lumps, No Nipple changes, No Nipple discharge, No Other Respiratory: No: Cough, Hemoptysis, Orthopnea, Pleuritic Pain, Shortness of breath, SOB with excertion, Sputum Changes, Stridor, Tachypnea, Wheezing, Other Cardiovascular: No Chest Pain, No Palpitations, No Orthopnea, No Paroxysmal Noc. Dyspnea, No Edema, No Lt Headedness, No Other Gastrointestinal: No Nausea, No Vomiting, No Abdominal Pain, No Diarrhea, No Constipation, No Melena, No Hematochezia, No Other Genitourinary: No Dysuria, No Frequency, No Incontinence, No Hematuria, No Retention, No Discharge, No Urgency, No Pain, No Flank Pain, No Other, No , No , No , No , No , No , No Musculoskeletal: Yes Gait Disturbance, Yes Joint Stiffness; No Joint Pain, No Joint Swelling, No Muscle Pain, No Muscular Weakness, No Pain In:, No Swelling In:, No Other Neurological: Yes Gait Disturbance; No Behavorial Changes, No Bowel/Bladder ControlChng, No Confusion, No Dizziness, No Headaches, No Impaired Coord/balance, No Memory Loss, No Numbness/Tingling, No Seizures, No Speech Problems, No Tremors, No Visual Changes, No Weakness, No Other Skin: No Dry Skin, No Eczema, No Hair Changes, No Lumps, No Mole Changes, No Mottling, No Nail Changes, No Pruritus, No Rash, No Skin Lesion Changes, No Other, No Acne Physical Exam Physical Exam Constitutional: Well developed, well nourished, no acute distress, non-toxic appearance. [] HENT: Normocephalic, atraumatic, bilateral external ears normal, oropharynx moist, no oral exudates, nose normal. [] Eyes: PERRLA, EOMI, conjunctiva normal, no discharge. [] Neck: Normal range of motion, cervical tenderness, supple, no stridor. [] Cardiovascular:Heart rate regular rhythm, no murmur [] Lungs & Thorax: Bilateral breath sounds clear to auscultation [] Abdomen: Bowel sounds normal, soft, no tenderness, no masses, no pulsatile masses. [] Skin: Warm, dry, no erythema, no rash. [] Back: Lumbar tenderness, no CVA tenderness. [] Extremities: No tenderness, no cyanosis, no clubbing, ROM intact, no edema. [] Neurologic: Alert and oriented X 3, normal motor function, normal sensory function, no focal deficits noted. [] Psychologic: Affect normal, judgment normal, mood normal. [] General: Alert, Oriented X3, Cooperative Lungs: Clear to auscultation, Normal air movement Heart: RRR, no thrills, no gallops, no jug vein distention Breasts: Not examined Abdomen: Normal bowel sounds, Soft Rectal Exam: not examined PELVIC: Examination not indicated Extremities: No cyanosis Neuro: Normal speech, Cranial nerves 3-12 NL Psych/Mental Status: Mental status NL, Mood NL Vitals Vitals Vital Signs Date Time Temp Pulse Resp B/P (MAP) Pulse Ox O2 Delivery O2 Flow Rate FiO2 01/05/21 12:41 20 99 Nasal Cannula 2.0 01/05/21 11:20 98.5 69 133/60 (84) 98.5 Labs Labs Laboratory Tests Test 01/05/21 12:54 White Blood Count 10.6 x10^3/uL (4.0-11.0) Red Blood Count 4.03 x10^6/uL (3.50-5.40) Hemoglobin 9.8 g/dL (12.0-15.5) Hematocrit 30.8 % (36.0-47.0) Mean Corpuscular Volume 77 fL (79-100) Mean Corpuscular Hemoglobin 24 pg (25-35) Mean Corpuscular Hemoglobin Concent 32 g/dL (31-37) Red Cell Distribution Width 16.9 % (11.5-14.5) Platelet Count 327 x10^3/uL (140-400) Neutrophils (%) (Auto) 67 % (31-73) Lymphocytes (%) (Auto) 22 % (24-48) Monocytes (%) (Auto) 7 % (0-9) Eosinophils (%) (Auto) 4 % (0-3) Basophils (%) (Auto) 1 % (0-3) Neutrophils # (Auto) 7.1 x10^3/uL (1.8-7.7) Lymphocytes # (Auto) 2.3 x10^3/uL (1.0-4.8) Monocytes # (Auto) 0.7 x10^3/uL (0.0-1.1) Eosinophils # (Auto) 0.4 x10^3/uL (0.0-0.7) Basophils # (Auto) 0.1 x10^3/uL (0.0-0.2) Sodium Level 141 mmol/L (136-145) Potassium Level 4.1 mmol/L (3.5-5.1) Chloride Level 104 mmol/L (98-107) Carbon Dioxide Level 30 mmol/L (21-32) Anion Gap 7 (6-14) Blood Urea Nitrogen 7 mg/dL (7-20) Creatinine 0.7 mg/dL (0.6-1.0) Estimated GFR (Cockcroft-Gault) 82.7 BUN/Creatinine Ratio 10 (6-20) Glucose Level 79 mg/dL (70-99) Calcium Level 8.6 mg/dL (8.5-10.1) Total Bilirubin 0.2 mg/dL (0.2-1.0) Aspartate Amino Transf (AST/SGOT) 9 U/L (15-37) Alanine Aminotransferase (ALT/SGPT) 13 U/L (14-59) Alkaline Phosphatase 105 U/L (46-116) Troponin I Quantitative < 0.017 ng/mL (0.000-0.055) EX-Ocr-G-Type Natriuretic Peptide 123 pg/mL (0-124) Total Protein 6.9 g/dL (6.4-8.2) Albumin 3.0 g/dL (3.4-5.0) Albumin/Globulin Ratio 0.8 (1.0-1.7) Laboratory Tests Test 01/05/21 12:54 White Blood Count 10.6 x10^3/uL (4.0-11.0) Red Blood Count 4.03 x10^6/uL (3.50-5.40) Hemoglobin 9.8 g/dL (12.0-15.5) Hematocrit 30.8 % (36.0-47.0) Mean Corpuscular Volume 77 fL (79-100) Mean Corpuscular Hemoglobin 24 pg (25-35) Mean Corpuscular Hemoglobin Concent 32 g/dL (31-37) Red Cell Distribution Width 16.9 % (11.5-14.5) Platelet Count 327 x10^3/uL (140-400) Neutrophils (%) (Auto) 67 % (31-73) Lymphocytes (%) (Auto) 22 % (24-48) Monocytes (%) (Auto) 7 % (0-9) Eosinophils (%) (Auto) 4 % (0-3) Basophils (%) (Auto) 1 % (0-3) Neutrophils # (Auto) 7.1 x10^3/uL (1.8-7.7) Lymphocytes # (Auto) 2.3 x10^3/uL (1.0-4.8) Monocytes # (Auto) 0.7 x10^3/uL (0.0-1.1) Eosinophils # (Auto) 0.4 x10^3/uL (0.0-0.7) Basophils # (Auto) 0.1 x10^3/uL (0.0-0.2) Sodium Level 141 mmol/L (136-145) Potassium Level 4.1 mmol/L (3.5-5.1) Chloride Level 104 mmol/L (98-107) Carbon Dioxide Level 30 mmol/L (21-32) Anion Gap 7 (6-14) Blood Urea Nitrogen 7 mg/dL (7-20) Creatinine 0.7 mg/dL (0.6-1.0) Estimated GFR (Cockcroft-Gault) 82.7 BUN/Creatinine Ratio 10 (6-20) Glucose Level 79 mg/dL (70-99) Calcium Level 8.6 mg/dL (8.5-10.1) Total Bilirubin 0.2 mg/dL (0.2-1.0) Aspartate Amino Transf (AST/SGOT) 9 U/L (15-37) Alanine Aminotransferase (ALT/SGPT) 13 U/L (14-59) Alkaline Phosphatase 105 U/L (46-116) Troponin I Quantitative < 0.017 ng/mL (0.000-0.055) YF-Buv-Y-Type Natriuretic Peptide 123 pg/mL (0-124) Total Protein 6.9 g/dL (6.4-8.2) Albumin 3.0 g/dL (3.4-5.0) Albumin/Globulin Ratio 0.8 (1.0-1.7) Images Images PATIENT: JOSE CHARLES ACCOUNT: [id number] : 1950 LOCATION: ER AGE: 70 SEX: F EXAM STATUS: REG ER ORD. PHYSICIAN: ALIRIO INIGUEZ APRN REASON: fall, pain PROCEDURE: SHOULDER 2+V RIGHT EXAM: Right shoulder, 3 views; chest, single view. HISTORY: Pain. Fall. COMPARISON: 11/16/2020 FINDINGS: A frontal view of the chest and 3 views of the right shoulder obtained. There is no infiltrate, pleural effusion or pneumothorax. There is a prominent cardiac silhouette, likely accentuated due to supine imaging techni que. There is a right shoulder arthroplasty in expected position. There is no evidence of arthroplasty loosening. There is mild acromioclavicular joint spurring. IMPRESSION: 1. No acute pulmonary finding. 2. Right shoulder arthroplasty in expected position. 3. Mild right acromioclavicular joint osteoarthritis. Electronically signed by: Marli Mondragon MD (01/05/2021 11:54 AM) [id number] DICTATED and SIGNED BY: MARLI MONDRAGON MD DATE: 01/05/21 [id number] PATIENT: JOSE CHARLES ACCOUNT: [id number] : 1950 LOCATION: ER AGE: 70 SEX: F EXAM STATUS: REG ER ORD. PHYSICIAN: ALIRIO INIGUEZ APRN REASON: fall, pain, recent lumbar surgery PROCEDURE: CT LUMBAR SPINE WO CONTRAST CT LUMBAR SPINE WO Date: 01/05/2021 12:22 PM Indication: fall, pain, recent lumbar surgery Comparison: MRI 08/14/2020. Technique: Helical CT images of the lumbar spine were obtained without contrast. Coronal and sagittal reformatted images were also performed. One or more of the following dose reduction techniques were utilized: Automated exposu re control (AEC), Adjustment of mA and/or kV according to patient size, Use of iterative reconstruction technique such as ASiR, CT scan done according to ALARA and image gently/image wisely. Findings: Postsurgical changes of posterior decompression and posterior instrumentation at L5-S1 with interbody spacer. Interspinous process instrumentation at L3-4. The lumbar spine is normally aligned. No acute fracture. Chronic T12 compression deformity with changes of vertebral augmentation. Mild chronic height loss at L1 with superior endplate Schmorl's node. No aggressive lytic or blastic osseous lesion. Mild to moderate multilevel degenerative disc space height loss. Multilevel mild spinal canal stenosis secondary to multilevel disc bulging and facet arthrosis. Multilevel moderate neuroforaminal narrowing. Multilevel mild and moderate facet arthrosis. No soft tissue abnormality within the visualized abdomen or pelvis. The visualized abdominal aorta is normal caliber. Mild aortic atherosclerotic disease. IMPRESSION: No acute osseous abnormality of the lumbar spine. Electronically signed by: Carlin Talley MD (01/05/2021 1:14 PM) [id number] SEX: F EXAM STATUS: REG ER ORD. PHYSICIAN: ALIRIO INIGUEZ APRN REASON: fall, pain, aspirin use PROCEDURE: CT HEAD AND CERVICAL SPINE WO CT HEAD AND C-SPINE WO Clinical indications: Reason: fall, pain, aspirin use NONCONTRAST HEAD CT Technique: Noncontrast axial cross sectional scanning of the head was performed. PQRS compliance Statement One or more of the following individualized dose reduction techniques were utilized for this study: 1. Automated exposure control 2. Adjustment of the mA and/or kV according to patient size 3. Use of iterative reconstruction technique Findings: No acute intracranial hemorrhage or midline shift or mass-effect or hydrocephalus or extra-axial fluid collection is seen. No focal hypodense area or sulci effacement is seen to indicate an acute infarct or edema radiographical ly. No skull fracture or pneumocephalus is seen. No opacification of the mastoid sinuses or the middle ear cavities is seen. There is complete opacification of the right maxillary sinus. IMPRESSION: No acute intracranial abnormality is seen. Complete opacification of the right maxillary sinus. CERVICAL SPINE CT WITHOUT CONTRAST TECHNIQUE: Noncontrast helical CT scanning of the cervical spine was performed. Multiplanar 2-D reconstructions were generated. FINDINGS: No acute fracture or discitis or lytic process or prevertebral soft tissue swelling is evident. There is moderate degenerative disc space narrowing and endplate spurring at C6-7. No perching of facet joints is seen. Spinous processes are intact. IMPRESSION: No acute fracture. Electronically signed by: Cristino Estevez MD (01/05/2021 1:24 PM) [id number] DICTATED and SIGNED BY: CRISTINO ESTEVEZ MD DATE: 01/05/21 [id number] VTE Prophylaxis Ordered VTE Prophylaxis Devices: Yes VTE Pharmacological Prophylaxi: Yes Assessment/Plan Assessment/Plan impression Syncopal episode, UNWITNESSED , possible vaso-vagal but cannot exclude arrythmia history of diabetes, GERD, high blood pressure, hypothyroidism, 3 L of oxygen at night, HX [place], heart cath, HX knee replacement, HX chf Right shoulder arthroplasty right acromioclavicular joint osteoarthritis plan====== admit due to hx ASHD, Consult cardiology cardiology consult Neurochecks q 4 hrs tele bed ORTHOSTATIC BP D/W ER DR Justifications for Admission Other Justification MARY BLANCA MD Jan 05, 2021 14:35
[2021-01-05 14:52] LABS: BACTERIA,URINE MANY /HPF (0-FEW); RBC,URINE 0 /HPF (0-2); WBC,URINE >40 /HPF (0-4)
[2021-01-05] MEDS ORDERED: 0.9 % SODIUM CHLORIDE 10 ML DISP.SYRIN. IV PRN (15:00)
[2021-01-05] MEDS ORDERED: SODIUM PHOSPHATES 19/7GM 133 ML ENEMA. PR PRN (15:00)
[2021-01-05] MEDS ORDERED: ONDANSETRON PF 4 MG/2 ML VIAL. IV PRN (15:00)
[2021-01-05] MEDS ORDERED: ALBUTEROL SULFATE 2.5 MG/3 ML NEBU. NEB PRN (15:00)
[2021-01-05] MEDS ORDERED: guaiFENesin ORAL 200 MG/10 ML LIQUID. PO PRN (15:00)
[2021-01-05] MEDS ORDERED: LORazepam 0.5 MG TABLET PO PRN (15:00)
[2021-01-05] MEDS ORDERED: MAG HYDROX/ALUMINUM HYD/SIMETH 30 ML ORAL.SUSP PO PRN (15:00)
[2021-01-05] MEDS ORDERED: DOCUSATE SODIUM 100 MG CAPSULE. PO PRN (15:00)
[2021-01-05] MEDS ORDERED: ACETAMINOPHEN 325 MG TABLET. PO PRN (15:00)
[2021-01-05] MEDS ORDERED: HYDROcodone/APAP 7.5/325MG 1 TAB TABLET PO PRN ×2 (15:45→16:00)
[2021-01-05] MEDS ORDERED: NITROGLYCERIN SUBLINGUAL 0.4 MG BOTTLE OF 25. SL PRN (15:45)
--- NOTE | 2021-01-05 16:07 | RAD ---
EXAM: CAROTID DOPPLER SONOGRAM. HISTORY: Syncope, fall, hypertension, dizziness. TECHNIQUE: Araujo scale and color Doppler sonographic evaluation of the neck with spectral waveform camila lysis was performed and static images are submitted for review. FINDINGS: RIGHT: The peak systolic velocity within the common carotid artery is 98 cm/sec. The peak systolic ve locity within the internal carotid artery is 119 cm/sec and the end diastolic velocity within the int ernal carotid artery is 27 cm/sec. The ICA/CCA ratio is 1.09. Grayscale images demonstrate no graysca le stenosis. LEFT: The peak systolic velocity within the common carotid artery is 100 cm/sec. The peak systolic ve locity within the internal carotid artery is 89 cm/sec and the end diastolic velocity within the inte rnal carotid artery is 24 cm/sec. The ICA/CCA ratio is 0.85. Grayscale images demonstrate no grayscal e stenosis. There is antegrade flow within both vertebral arteries. IMPRESSION: 1. No evidence of hemodynamically significant stenosis. PQRS Compliance Statement - Stenosis calculations for CT, MR and conventional angiography are based u pee measurement of the distal ICA diameter in accordance with the NASCET methodology. Stenosis calcu lations for carotid ultrasound studies are derived from validated velocity criteria which are known t o correlate with the NASCET methodology. Electronically signed by: Abad Cabral MD (01/05/2021 4:04 PM) [facility]
[2021-01-05] MEDS: IV NORMAL SALINE 1000ML BAG 1,000 ML IV SCH (16:25)
[2021-01-05] MEDS ORDERED: DEXTROSE 50% 25 GM / 50ML DISP.SYRIN. IV PRN ×2 (18:00)
[2021-01-05] MEDS: CARVEDILOL 3.125 MG TABLET. PO SCH (18:21)
[2021-01-05] MEDS: FUROSEMIDE 40 MG TABLET. PO SCH (18:22)
[2021-01-05 19:15] VITALS: BP 142/75
[2021-01-05] MEDS: BUDESONIDE 0.5 MG/2 ML NEBU. NEB SCH (20:05)
[2021-01-05] MEDS: ALBUTEROL SULFATE 2.5 MG/3 ML NEBU. NEB SCH (20:06)
[2021-01-05] MEDS ORDERED: CITALOPRAM 20 MG TABLET. PO SCH (21:00)
[2021-01-05] MEDS ORDERED: EPA PO SCH (21:00)
[2021-01-05] MEDS ORDERED: INSULIN GLARGINE SYRINGE. SQ SCH (21:00)
[2021-01-05] MEDS ORDERED: NON FORMULARY ITEM (Fluticasone/Salmeterol (Advair 250-50 Diskus) 1 PUFF) IH SCH (21:00)
[2021-01-05] MEDS ORDERED: CALCIUM CARB/VIT D3 500/200 TABLET. PO SCH (21:00)
[2021-01-05] MEDS ORDERED: DHA PO SCH (21:00)
[2021-01-05] MEDS ORDERED: FISH OIL PO SCH (21:00)
[2021-01-05] MEDS ORDERED: ATORVASTATIN CALCIUM 20 MG TABLET PO SCH (21:00)
[2021-01-05] MEDS ORDERED: OMEGA PO SCH (21:00)
[2021-01-05] MEDS ORDERED: ENOXAPARIN 40 MG/0.4 ML SYRINGE. SQ SCH (21:00)
[2021-01-05 22:35] VITALS: BP 122/56
[2021-01-06] MEDS: IV NORMAL SALINE 1000ML BAG 1,000 ML IV SCH ×2 (01:00→09:48)
[2021-01-06 02:23] VITALS: BP 154/67
[2021-01-06 04:32] LABS: BASO # 0.1 x10^3/uL (0.0-0.2); BASO % 1 % (0-3); EOS # 0.4 x10^3/uL (0.0-0.7); EOS % 4 % (0-3); HEMATOCRIT 29.8 % (36.0-47.0); HEMOGLOBIN 9.4 g/dL (12.0-15.5); LYMPH # 2.9 x10^3/uL (1.0-4.8); LYMPH % 30 % (24-48); MEAN CORPUSCULAR HEMOGLOBIN 24 pg (25-35); MEAN CORPUSCULAR HGB CONC 32 g/dL (31-37); MEAN CORPUSCULAR VOLUME 77 fL (79-100); MONO # 0.8 x10^3/uL (0.0-1.1); MONO % 8 % (0-9); NEUT # 5.5 x10^3/uL (1.8-7.7); NEUT % 57 % (31-73); PLATELET COUNT 305 x10^3/uL (140-400); RED BLOOD COUNT 3.86 x10^6/uL (3.50-5.40); RED CELL DISTRIBUTION WIDTH 17.2 % (11.5-14.5); WHITE BLOOD COUNT 9.7 x10^3/uL (4.0-11.0)
[2021-01-06 04:39] LABS: CALCIUM 8.1 mg/dL (8.5-10.1); CREATININE 0.9 mg/dL (0.6-1.0); GFR 61.9; POTASSIUM 4.1 mmol/L (3.5-5.1)
[2021-01-06 07:00] VITALS: BP 134/63
[2021-01-06] MEDS ORDERED: PANTOPRAZOLE 40 MG TABLET.DR. PO SCH (07:30)
[2021-01-06] MEDS ORDERED: LEVOTHYROXINE 50 MCG TABLET PO SCH (07:30)
[2021-01-06] MEDS: BUDESONIDE 0.5 MG/2 ML NEBU. NEB SCH (07:40)
[2021-01-06] MEDS: ALBUTEROL SULFATE 2.5 MG/3 ML NEBU. NEB SCH ×2 (07:40→12:00)
[2021-01-06] MEDS ORDERED: POTASSIUM CHLORIDE 20 MEQ TABLET.ER. PO SCH (08:00)
--- NOTE | 2021-01-06 08:41 | PDOC ---
PROGRESS NOTES Date of Service: DATE: 01/06/21 TIME: 08:40 Chief Complaint Chief Complaint VTE Prophylaxis Ordered VTE Prophylaxis Devices: Yes VTE Pharmacological Prophylaxi: Yes Assessment/Plan Assessment/Plan impression Syncopal episode, UNWITNESSED , possible vaso-vagal but cannot exclude arrythmia history of diabetes, GERD, high blood pressure, hypothyroidism, 3 L of oxygen at night, HX NE, heart cath, HX knee replacement, HX chf Right shoulder arthroplasty right acromioclavicular joint osteoarthritis microcytic anemia, likely fe deficient ACUTE HYPOXIC RESP FAILURE plan====== admit due to hx ASHD, Consult cardiology cardiology consult Neurochecks q 4 hrs tele bed ORTHOSTATIC BP fe so4 po daily, consider endoscopy as out patient PT/OT Neurology consult PER CARDIOLOGY ABG, 6 MIN WALK, D DIMER A1C Consult DR BANDA d/c planning 32 min Ambulation Comments * no loss of balance noted Other Information * Pt is indep with mobility using RW and encouraged use of RW upon return home. Orthostatic BP stable. No skilled PT intervention indicated no follow up planned. Pt may benefit from outpatinet pt to address balance related to falls. D/W RN D/W ER Justifications for Admission Other Justification History of Present Illness History of Present Illness Identification/Chief Complaint Chief Complaint fall possible loc History of Present Illness History of Present Illness 70 year old female who presented with a fall was walking to the restroom at a food establishment when she suddenly fell. does not remember tripping. does have frequent falls but does not know why. denies syncope but then she states she is unsure. Patient had a recent lumbar surgery at [facility] on December 18. Patient did hit her head who complains of a headache to the back of the head. also complains of lumbar spinal pain and some neck pain./ also complaining of right shoulder pain. She denies having felt sick or abnormal prior to falling CT UNREMARKABLE Past Medical History Past Medical History Past Medical History Past Surgical History: Knee Replacement, Other Additional Past Surgical Histo: back Smoking Status: Never Smoker Alcohol Use: None Right shoulder arthroplasty right acromioclavicular joint osteoarthritis ight knee patellar tendon reconstruction with hamstring allograft 2016 FHX ASHD Cardiovascular: CHF, HTN, Other Pulmonary: Asthma, COPD Musculoskeletal: low back pain, Osteoarthritis Endocrine: Diabetes Past Surgical History Past Surgical History: Appendectomy, Cholecystectomy, Total knee replacement, Tonsillectomy, Hysterectomy, Other Family History Family History: Cancer, Heart Disease, Hypertension, Stroke Social History Smoke: No ALCOHOL: none Drugs: None Current Medications Current Medications Current Medications Fentanyl Citrate (Fentanyl 2ml Vial) 50 mcg 1X ONCE IVP Last administered on 01/05/21at 12:41; Start 01/05/21 at 11:45; Stop 01/05/21 at 11:46; Status DC Active Scripts Active Hydrocodone-Apap 7.5-325 (Hydrocodone Bit/Acetaminophen) 1 Tab Tablet 1-2 Tab PO PRN Q4HRS PRN 1-2 tablets by mouth every 4 hours as needed for pain Reported Calcium 600 + Vit D Caplet (Calcium Carbonate/Vitamin D3) 1 Each Tablet 2 Tab PO HS 30 Days Glyburide 5 Mg Tablet 5 Mg PO DAILY Fish Oil 1,000 mg Softgel ([place]-3/Dha/Epa/Fish Oil) 1,000 Mg Capsule 1,000 Mg PO HS Victoza 3-Darío (Liraglutide) 0.6 Mg/0.1 Ml Pen.injctr 1.8 Mg SQ DAILY Irbesartan 300 Mg Tablet 1 Tab PO DAILY Omeprazole 20 Mg Tablet.dr 1 Tab PO DAILY Glipizide 10 Mg Tablet 1 Tab PO BID Advair 250-50 Diskus (Fluticasone/Salmeterol) 1 Each Disk.w.dev 1 Puff IH BID Aspirin 81 Mg Tab.chew 1 Tab PO QODAY Montelukast Sodium Tablet (Montelukast Sodium) 10 Mg Tablet 10 Mg PO DAILY Novolog Flexpen (Insulin Aspart) 100 Unit/1 Ml Insuln.pen 10 Unit SQ QID Fish Oil 1,000 Mg Capsule ([place]-3 Fatty Acids/Fish Oil) 1 Each Capsule 1 Each PO DAILY Naproxen Sodium 550 Mg Tablet 220 Mg PO DAILY Levemir (Insulin Detemir) 100 Unit/1 Ml Vial 30 Unit SQ HS Amlodipine Besylate 2.5 Mg Tablet 2.5 Mg PO HS Nitrostat (Nitroglycerin) 0.4 Mg Tab.subl 0.4 Mg SL PRN Q5MIN PRN Not given. Resume at home as needed for chest pain. Fosamax Plus D 70 Mg-2,800 Iu (Alendronate Sodium/Vitamin D3) 1 Each Tablet 1 Each PO WEEKLY Escitalopram Oxalate 10 Mg Tablet 10 Mg PO HS Atorvastatin Calcium 20 Mg Tablet 20 Mg PO HS Multi-Vitamin Daily (Multivitamin) 1 Each Tablet 1 Each PO DAILY Loratadine 10 Mg Tab.rapdis 10 Mg PO DAILY Isosorbide Mononitrate Er (Isosorbide Mononitrate) 120 Mg Tab.er.24h 120 Mg PO DAILY Levothyroxine Sodium 50 Mcg Tablet 50 Mcg PO DAILYAC Furosemide 40 Mg Tablet 40 Mg PO BID Metformin Hcl 1,000 Mg Tablet 1,000 Mg PO BID MDD Carvedilol (Carvedilol) 3.125 Mg Tablet 3.125 Mg PO BID K-Tab ER (Potassium Chloride) 20 Meq Tablet.er 20 Meq PO DAILY Allergies Allergies: Coded Allergies: niacin (Verified Allergy, Intermediate, Rash, 01/05/21) silver (Verified Allergy, Intermediate, RASH/BLISTERS; AQUACEL AG DRESSING, 01/05/21) codeine (Verified Adverse Reaction, Intermediate, Nausea and Vomiting, 01/05/21) nifedipine (Verified Adverse Reaction, Intermediate, Nausea and Vomiting, 01/05/21) oxycodone (Verified Adverse Reaction, Intermediate, HEADACHE, 01/05/21) hallucinates propoxyphene (Verified Adverse Reaction, Intermediate, passed out, 01/05/21) ROS General: No: Chills, Night Sweats, Fatigue, Malaise, Appetite, Other PSYCHOLOGICAL ROS: No: Anxiety, Behavioral Disorder, Concentration difficultie, Decreased libido, Depression, Disorientation, Hallucinations, Hostility, Irritablity, Memory difficulties, Mood Swings, Obsessive thoughts, Physical abuse, Sexual abuse, Sleep disturbances, Suicidal ideation, Other Eyes: No Blurry vision, No Decreased vision, No Double vision, No Dry eyes, No Excessive tearing, No Eye Pain, No Itchy Eyes, No Loss of vision, No Photophobia, No Scotomata, No Uses contacts, No Uses glasses, No Other HEENT: YES: Heacaches; No: Visual Changes, Hearing change, Nasal congestion, Nasal discharge, Oral lesions, Sinus pain, Sore Throat, Epistaxis, Sneezing, Snoring, Tinnitus, Vertigo, Vocal changes, Other ALLERGY AND IMMUNOLOGY: YES: Hives; No: Insect Bite Sensitivity, Itchy/Watery Eyes, Nasal Congestion, Post Nasal Drip, Seasonal Allergies, Other Hematological and Lymphatic: No: Bleeding Problems, Blood Clots, Blood Transfusions, Brusing, Night Sweats, Pallor, Swollen Lymph Nodes, Other ENDOCRINE: No: Breast Changes, Galactorrhea, Hair Pattern Changes, Hot Flashes, Malaise/lethargy, Mood Swings, Palpitations, Polydipsia/polyuria, Skin Changes, Temperature Intolerance, Unexpected Weight Changes, Other Breast: No New/Changing Breast Lumps, No Nipple changes, No Nipple discharge, No Other Respiratory: No: Cough, Hemoptysis, Orthopnea, Pleuritic Pain, Shortness of breath, SOB with excertion, Sputum Changes, Stridor, Tachypnea, Wheezing, Other Cardiovascular: No Chest Pain, No Palpitations, No Orthopnea, No Paroxysmal Noc. Dyspnea, No Edema, No Lt Headedness, No Other Gastrointestinal: No Nausea, No Vomiting, No Abdominal Pain, No Diarrhea, No Constipation, No Melena, No Hematochezia, No Other Genitourinary: No Dysuria, No Frequency, No Incontinence, No Hematuria, No Retention, No Discharge, No Urgency, No Pain, No Flank Pain, No Other, No , No , No , No , No , No , No Musculoskeletal: Yes Gait Disturbance, Yes Joint Stiffness; No Joint Pain, No Joint Swelling, No Muscle Pain, No Muscular Weakness, No Pain In:, No Swelling In:, No Other Neurological: Yes Gait Disturbance; No Behavorial Changes, No Bowel/Bladder ControlChng, No Confusion, No Dizziness, No Headaches, No Impaired Coord/balance, No Memory Loss, No Numbness/Tingling, No Seizures, No Speech Problems, No Tremors, No Visual Changes, No Weakness, No Other Skin: No Dry Skin, No Eczema, No Hair Changes, No Lumps, No Mole Changes, No Mottling, No Nail Changes, No Pruritus, No Rash, No Skin Lesion Changes, No Other, No Acne Vitals Vitals Vital Signs Date Time Temp Pulse Resp B/P (MAP) Pulse Ox O2 Delivery O2 Flow Rate FiO2 01/06/21 07:40 99 Nasal Cannula 2.0 01/06/21 07:00 97.8 70 20 134/63 (86) 97.8 Physical Exam Physical Exam Physical Exam Constitutional: Well developed, well nourished, no acute distress, non-toxic appearance. [] HENT: Normocephalic, atraumatic, bilateral external ears normal, oropharynx moist, no oral exudates, nose normal. [] Eyes: PERRLA, EOMI, conjunctiva normal, no discharge. [] Neck: Normal range of motion, cervical tenderness, supple, no stridor. [] Cardiovascular:Heart rate regular rhythm, no murmur [] Lungs & Thorax: Bilateral breath sounds clear to auscultation [] Abdomen: Bowel sounds normal, soft, no tenderness, no masses, no pulsatile masses. [] Skin: Warm, dry, no erythema, no rash. [] Back: Lumbar tenderness, no CVA tenderness. [] Extremities: No tenderness, no cyanosis, no clubbing, ROM intact, no edema. [] Neurologic: Alert and oriented X 3, normal motor function, normal sensory function, no focal deficits noted. [] Psychologic: Affect normal, judgment normal, mood normal. [] General: Alert, Oriented X3, Cooperative Lungs: Clear to auscultation, Normal air movement Heart: RRR, no thrills, no gallops, no jug vein distention Breasts: Not examined Abdomen: Normal bowel sounds, Soft Rectal Exam: not examined PELVIC: Examination not indicated Extremities: No cyanosis Neuro: Normal speech, Cranial nerves 3-12 NL Psych/Mental Status: Mental status NL, Moo General: Alert, Oriented X3, Cooperative, No acute distress Heart: Regular rate, Normal S1, Normal S2 Lungs: Clear Abdomen: Normal bowel sounds, Soft, No tenderness, No hepatosplenomegaly Extremities: No clubbing, No cyanosis, No edema Labs LABS * Pt reports soreness from fall but rates pain 0/10 Rolling Right Assistance Required * Independent * Bedrail Used Supine to Sit Assistance Required * Independent * Bedrail Used Bed Mobility Comments * labored with push up Transfer Assistance Required * Independent Transfer Type * Sit to Stand Transfer Assistive Device * Roller Walker Transfer Comments * from bed and toilet Ambulation Assistance Required * Independent Ambulation Assistive Device * Roller Walker Ambulation Distance * 350' Gait Impairments * Slow Wendy Ambulation Comments * no loss of balance noted Other Information * Pt is indep with mobility using RW and encouraged use of RW upon return home. Orthostatic BP stable. No skilled PT intervention indicated no follow up planned. Pt may benefit from outpatinet pt to address balance related to falls. Learning Preferences * One-on-One Instruction Clinical Presentation * Stable Evaluation Complexity Level * Low Complexity Pt/caregiver agrees with plan of care/goals * Yes Patient condition at conclusion of therapy * Pt in chair * Personal alarm on * Call light in reach * Phone in reach * PtIn no apparent distress * * EXAM: Lumbar spine MRI without contrast. HISTORY: Lumbar radiculopathy. Fall. TECHNIQUE: Multiplanar, multisequence magnetic resonance imaging of the lumbar spine was performed without contrast. COMPARISON: None. FINDINGS: There is mild lumbar scoliosis and hyperlordosis. There is grade 1 anterolisthesis of L5 on S1, measuring 3 mm. There is a moderate to severe chronic anterior wedge compression deformity with prominent endplate Schmorl's nodes at T12. There is also a mild chronic superior endplate depression with large Schmorl's node at L1. No acute or subacute fracture is seen. There is an interspinous decompression device at L3-L4. The conus terminates at L1. There is no suspicious osseous lesion. There is multilevel endplate remodeling, disc desiccation and disc space narrowing, predominantly at L5-S1. At T11-T12, there is a disc bulge and endplate remodeling. There is moderate right and mild left facet arthropathy. There is mild bilateral foraminal and central canal stenosis. At T12-L1, there is a disc bulge and endplate remodeling. There is mild left foraminal stenosis. At L1-L2, there is no stenosis. At L2-L3, there is a disc bulge and endplate remodeling. There is mild bilateral facet arthropathy. There is hypertrophy of the ligament of flavum. There is mild right foraminal stenosis. There is minimal central canal stenosis. At L3-L4, there are left greater than right foraminal to lateral disc protrusion superimposed on a disc bulge and endplate remodeling. There is [id number] right and moderate left facet arthropathy. There is hypertrophy of the ligament of flavum. There is mild right and [id number] left foraminal stenosis with abutment the exiting left L3 nerve root. There is mild to moderate central canal stenosis. At L4-L5, there is a left foraminal to extra foraminal disc protrusion superimposed on a disc bulge and endplate remodeling. There is moderate right and severe left facet arthropathy. There is hypertrophy of the ligamentum flavum. There is mild bilateral foraminal stenosis with abutment of the exiting L4 nerve roots. There is moderate central canal stenosis. At L5-S1, there are bilateral foraminal to extra disc protrusions superimposed on a disc bulge and endplate remodeling. There is moderate lateral facet arthropathy. There is grade 1 anterolisthesis. There is mild bilateral foraminal stenosis with abutment the exiting L5 nerve roots. IMPRESSION: 1. Multilevel degenerative change involving the lumbar spine and lower thoracic spine, described in detail above. This is associated with foraminal and central canal stenosis at the aforementioned levels. 2. Interspinous to compression device at L3-L4. 3. Lumbar scoliosis and hyperlordosis and grade 1 anterolisthesis of L5 on S1. 4. Moderate to severe chronic wedge compression deformity with endplate Schmorl's nodes at T12 and mild chronic superior endplate depression with Schmorl's node at L1. Electronically signed by: Marli Mondragon MD (08/15/2020 9:20 AM) [id number] DICTATED and SIGNED BY: MARLI MONDRAGON MD DATE: 08/15/20 [id number] Laboratory Tests Test 01/05/21 12:54 01/05/21 14:25 01/05/21 14:45 01/05/21 21:02 White Blood Count 10.6 x10^3/uL (4.0-11.0) Red Blood Count 4.03 x10^6/uL (3.50-5.40) Hemoglobin 9.8 g/dL (12.0-15.5) Hematocrit 30.8 % (36.0-47.0) Mean Corpuscular Volume 77 fL (79-100) Mean Corpuscular Hemoglobin 24 pg (25-35) Mean Corpuscular Hemoglobin Concent 32 g/dL (31-37) Red Cell Distribution Width 16.9 % (11.5-14.5) Platelet Count 327 x10^3/uL (140-400) Neutrophils (%) (Auto) 67 % (31-73) Lymphocytes (%) (Auto) 22 % (24-48) Monocytes (%) (Auto) 7 % (0-9) Eosinophils (%) (Auto) 4 % (0-3) Basophils (%) (Auto) 1 % (0-3) Neutrophils # (Auto) 7.1 x10^3/uL (1.8-7.7) Lymphocytes # (Auto) 2.3 x10^3/uL (1.0-4.8) Monocytes # (Auto) 0.7 x10^3/uL (0.0-1.1) Eosinophils # (Auto) 0.4 x10^3/uL (0.0-0.7) Basophils # (Auto) 0.1 x10^3/uL (0.0-0.2) Sodium Level 141 mmol/L (136-145) Potassium Level 4.1 mmol/L (3.5-5.1) Chloride Level 104 mmol/L (98-107) Carbon Dioxide Level 30 mmol/L (21-32) Anion Gap 7 (6-14) Blood Urea Nitrogen 7 mg/dL (7-20) Creatinine 0.7 mg/dL (0.6-1.0) Estimated GFR (Cockcroft-Gault) 82.7 BUN/Creatinine Ratio 10 (6-20) Glucose Level 79 mg/dL (70-99) Calcium Level 8.6 mg/dL (8.5-10.1) Iron Level 24 ug/dL (50-170) Total Iron Binding Capacity 337 ug/dL (250-450) Iron Saturation 7 % (15-34) Total Bilirubin 0.2 mg/dL (0.2-1.0) Aspartate Amino Transf (AST/SGOT) 9 U/L (15-37) Alanine Aminotransferase (ALT/SGPT) 13 U/L (14-59) Alkaline Phosphatase 105 U/L (46-116) Troponin I Quantitative < 0.017 ng/mL (0.000-0.055) LB-Opp-B-Type Natriuretic Peptide 123 pg/mL (0-124) Total Protein 6.9 g/dL (6.4-8.2) Albumin 3.0 g/dL (3.4-5.0) Albumin/Globulin Ratio 0.8 (1.0-1.7) Urine Collection Type Unknown Urine Color Yellow Urine Clarity Clear Urine pH 6.5 (<5.0-8.0) Urine Specific Lamar <=1.005 (1.000-1.030) Urine Protein Negative mg/dL (NEG-TRACE) Urine Glucose (UA) Negative mg/dL (NEG) Urine Ketones (Stick) Negative mg/dL (NEG) Urine Blood Negative (NEG) Urine Nitrite Negative (NEG) Urine Bilirubin Negative (NEG) Urine Urobilinogen Dipstick 1.0 mg/dL (0.2 mg/dL) Urine Leukocyte Esterase Moderate (NEG) Urine RBC 0 /HPF (0-2) Urine WBC >40 /HPF (0-4) Urine Squamous Epithelial Cells Mod /LPF Urine Bacteria Many /HPF (0-FEW) SARS-CoV-2 Antigen (Rapid) Negative (NEGATIVE) Glucose (Fingerstick) 130 mg/dL (70-99) Test 01/06/21 04:00 01/06/21 07:18 White Blood Count 9.7 x10^3/uL (4.0-11.0) Red Blood Count 3.86 x10^6/uL (3.50-5.40) Hemoglobin 9.4 g/dL (12.0-15.5) Hematocrit 29.8 % (36.0-47.0) Mean Corpuscular Volume 77 fL (79-100) Mean Corpuscular Hemoglobin 24 pg (25-35) Mean Corpuscular Hemoglobin Concent 32 g/dL (31-37) Red Cell Distribution Width 17.2 % (11.5-14.5) Platelet Count 305 x10^3/uL (140-400) Neutrophils (%) (Auto) 57 % (31-73) Lymphocytes (%) (Auto) 30 % (24-48) Monocytes (%) (Auto) 8 % (0-9) Eosinophils (%) (Auto) 4 % (0-3) Basophils (%) (Auto) 1 % (0-3) Neutrophils # (Auto) 5.5 x10^3/uL (1.8-7.7) Lymphocytes # (Auto) 2.9 x10^3/uL (1.0-4.8) Monocytes # (Auto) 0.8 x10^3/uL (0.0-1.1) Eosinophils # (Auto) 0.4 x10^3/uL (0.0-0.7) Basophils # (Auto) 0.1 x10^3/uL (0.0-0.2) Sodium Level 141 mmol/L (136-145) Potassium Level 4.1 mmol/L (3.5-5.1) Chloride Level 106 mmol/L (98-107) Carbon Dioxide Level 32 mmol/L (21-32) Anion Gap 3 (6-14) Blood Urea Nitrogen 7 mg/dL (7-20) Creatinine 0.9 mg/dL (0.6-1.0) Estimated GFR (Cockcroft-Gault) 61.9 Glucose Level 136 mg/dL (70-99) Calcium Level 8.1 mg/dL (8.5-10.1) Glucose (Fingerstick) 178 mg/dL (70-99) Assessment and Plan Assessmemt and Plan Problems Medical Problems: (1) Fall Status: Acute (2) Syncopal episodes Status: Acute Comment Review of Relevant I have reviewed the following items maria r (where applicable) has been applied. Labs Laboratory Tests Test 01/05/21 12:54 01/05/21 14:25 01/05/21 14:45 01/05/21 21:02 White Blood Count 10.6 x10^3/uL (4.0-11.0) Red Blood Count 4.03 x10^6/uL (3.50-5.40) Hemoglobin 9.8 g/dL (12.0-15.5) Hematocrit 30.8 % (36.0-47.0) Mean Corpuscular Volume 77 fL (79-100) Mean Corpuscular Hemoglobin 24 pg (25-35) Mean Corpuscular Hemoglobin Concent 32 g/dL (31-37) Red Cell Distribution Width 16.9 % (11.5-14.5) Platelet Count 327 x10^3/uL (140-400) Neutrophils (%) (Auto) 67 % (31-73) Lymphocytes (%) (Auto) 22 % (24-48) Monocytes (%) (Auto) 7 % (0-9) Eosinophils (%) (Auto) 4 % (0-3) Basophils (%) (Auto) 1 % (0-3) Neutrophils # (Auto) 7.1 x10^3/uL (1.8-7.7) Lymphocytes # (Auto) 2.3 x10^3/uL (1.0-4.8) Monocytes # (Auto) 0.7 x10^3/uL (0.0-1.1) Eosinophils # (Auto) 0.4 x10^3/uL (0.0-0.7) Basophils # (Auto) 0.1 x10^3/uL (0.0-0.2) Sodium Level 141 mmol/L (136-145) Potassium Level 4.1 mmol/L (3.5-5.1) Chloride Level 104 mmol/L (98-107) Carbon Dioxide Level 30 mmol/L (21-32) Anion Gap 7 (6-14) Blood Urea Nitrogen 7 mg/dL (7-20) Creatinine 0.7 mg/dL (0.6-1.0) Estimated GFR (Cockcroft-Gault) 82.7 BUN/Creatinine Ratio 10 (6-20) Glucose Level 79 mg/dL (70-99) Calcium Level 8.6 mg/dL (8.5-10.1) Iron Level 24 ug/dL (50-170) Total Iron Binding Capacity 337 ug/dL (250-450) Iron Saturation 7 % (15-34) Total Bilirubin 0.2 mg/dL (0.2-1.0) Aspartate Amino Transf (AST/SGOT) 9 U/L (15-37) Alanine Aminotransferase (ALT/SGPT) 13 U/L (14-59) Alkaline Phosphatase 105 U/L (46-116) Troponin I Quantitative < 0.017 ng/mL (0.000-0.055) FJ-Qmb-A-Type Natriuretic Peptide 123 pg/mL (0-124) Total Protein 6.9 g/dL (6.4-8.2) Albumin 3.0 g/dL (3.4-5.0) Albumin/Globulin Ratio 0.8 (1.0-1.7) Urine Collection Type Unknown Urine Color Yellow Urine Clarity Clear Urine pH 6.5 (<5.0-8.0) Urine Specific Lamar <=1.005 (1.000-1.030) Urine Protein Negative mg/dL (NEG-TRACE) Urine Glucose (UA) Negative mg/dL (NEG) Urine Ketones (Stick) Negative mg/dL (NEG) Urine Blood Negative (NEG) Urine Nitrite Negative (NEG) Urine Bilirubin Negative (NEG) Urine Urobilinogen Dipstick 1.0 mg/dL (0.2 mg/dL) Urine Leukocyte Esterase Moderate (NEG) Urine RBC 0 /HPF (0-2) Urine WBC >40 /HPF (0-4) Urine Squamous Epithelial Cells Mod /LPF Urine Bacteria Many /HPF (0-FEW) SARS-CoV-2 Antigen (Rapid) Negative (NEGATIVE) Glucose (Fingerstick) 130 mg/dL (70-99) Test 01/06/21 04:00 01/06/21 07:18 White Blood Count 9.7 x10^3/uL (4.0-11.0) Red Blood Count 3.86 x10^6/uL (3.50-5.40) Hemoglobin 9.4 g/dL (12.0-15.5) Hematocrit 29.8 % (36.0-47.0) Mean Corpuscular Volume 77 fL (79-100) Mean Corpuscular Hemoglobin 24 pg (25-35) Mean Corpuscular Hemoglobin Concent 32 g/dL (31-37) Red Cell Distribution Width 17.2 % (11.5-14.5) Platelet Count 305 x10^3/uL (140-400) Neutrophils (%) (Auto) 57 % (31-73) Lymphocytes (%) (Auto) 30 % (24-48) Monocytes (%) (Auto) 8 % (0-9) Eosinophils (%) (Auto) 4 % (0-3) Basophils (%) (Auto) 1 % (0-3) Neutrophils # (Auto) 5.5 x10^3/uL (1.8-7.7) Lymphocytes # (Auto) 2.9 x10^3/uL (1.0-4.8) Monocytes # (Auto) 0.8 x10^3/uL (0.0-1.1) Eosinophils # (Auto) 0.4 x10^3/uL (0.0-0.7) Basophils # (Auto) 0.1 x10^3/uL (0.0-0.2) Sodium Level 141 mmol/L (136-145) Potassium Level 4.1 mmol/L (3.5-5.1) Chloride Level 106 mmol/L (98-107) Carbon Dioxide Level 32 mmol/L (21-32) Anion Gap 3 (6-14) Blood Urea Nitrogen 7 mg/dL (7-20) Creatinine 0.9 mg/dL (0.6-1.0) Estimated GFR (Cockcroft-Gault) 61.9 Glucose Level 136 mg/dL (70-99) Calcium Level 8.1 mg/dL (8.5-10.1) Glucose (Fingerstick) 178 mg/dL (70-99) Laboratory Tests Test 01/05/21 12:54 01/05/21 14:25 01/05/21 14:45 01/05/21 21:02 White Blood Count 10.6 x10^3/uL (4.0-11.0) Red Blood Count 4.03 x10^6/uL (3.50-5.40) Hemoglobin 9.8 g/dL (12.0-15.5) Hematocrit 30.8 % (36.0-47.0) Mean Corpuscular Volume 77 fL (79-100) Mean Corpuscular Hemoglobin 24 pg (25-35) Mean Corpuscular Hemoglobin Concent 32 g/dL (31-37) Red Cell Distribution Width 16.9 % (11.5-14.5) Platelet Count 327 x10^3/uL (140-400) Neutrophils (%) (Auto) 67 % (31-73) Lymphocytes (%) (Auto) 22 % (24-48) Monocytes (%) (Auto) 7 % (0-9) Eosinophils (%) (Auto) 4 % (0-3) Basophils (%) (Auto) 1 % (0-3) Neutrophils # (Auto) 7.1 x10^3/uL (1.8-7.7) Lymphocytes # (Auto) 2.3 x10^3/uL (1.0-4.8) Monocytes # (Auto) 0.7 x10^3/uL (0.0-1.1) Eosinophils # (Auto) 0.4 x10^3/uL (0.0-0.7) Basophils # (Auto) 0.1 x10^3/uL (0.0-0.2) Sodium Level 141 mmol/L (136-145) Potassium Level 4.1 mmol/L (3.5-5.1) Chloride Level 104 mmol/L (98-107) Carbon Dioxide Level 30 mmol/L (21-32) Anion Gap 7 (6-14) Blood Urea Nitrogen 7 mg/dL (7-20) Creatinine 0.7 mg/dL (0.6-1.0) Estimated GFR (Cockcroft-Gault) 82.7 BUN/Creatinine Ratio 10 (6-20) Glucose Level 79 mg/dL (70-99) Calcium Level 8.6 mg/dL (8.5-10.1) Iron Level 24 ug/dL (50-170) Total Iron Binding Capacity 337 ug/dL (250-450) Iron Saturation 7 % (15-34) Total Bilirubin 0.2 mg/dL (0.2-1.0) Aspartate Amino Transf (AST/SGOT) 9 U/L (15-37) Alanine Aminotransferase (ALT/SGPT) 13 U/L (14-59) Alkaline Phosphatase 105 U/L (46-116) Troponin I Quantitative < 0.017 ng/mL (0.000-0.055) IM-Mep-L-Type Natriuretic Peptide 123 pg/mL (0-124) Total Protein 6.9 g/dL (6.4-8.2) Albumin 3.0 g/dL (3.4-5.0) Albumin/Globulin Ratio 0.8 (1.0-1.7) Urine Collection Type Unknown Urine Color Yellow Urine Clarity Clear Urine pH 6.5 (<5.0-8.0) Urine Specific Lamar <=1.005 (1.000-1.030) Urine Protein Negative mg/dL (NEG-TRACE) Urine Glucose (UA) Negative mg/dL (NEG) Urine Ketones (Stick) Negative mg/dL (NEG) Urine Blood Negative (NEG) Urine Nitrite Negative (NEG) Urine Bilirubin Negative (NEG) Urine Urobilinogen Dipstick 1.0 mg/dL (0.2 mg/dL) Urine Leukocyte Esterase Moderate (NEG) Urine RBC 0 /HPF (0-2) Urine WBC >40 /HPF (0-4) Urine Squamous Epithelial Cells Mod /LPF Urine Bacteria Many /HPF (0-FEW) SARS-CoV-2 Antigen (Rapid) Negative (NEGATIVE) Glucose (Fingerstick) 130 mg/dL (70-99) Test 01/06/21 04:00 01/06/21 07:18 White Blood Count 9.7 x10^3/uL (4.0-11.0) Red Blood Count 3.86 x10^6/uL (3.50-5.40) Hemoglobin 9.4 g/dL (12.0-15.5) Hematocrit 29.8 % (36.0-47.0) Mean Corpuscular Volume 77 fL (79-100) Mean Corpuscular Hemoglobin 24 pg (25-35) Mean Corpuscular Hemoglobin Concent 32 g/dL (31-37) Red Cell Distribution Width 17.2 % (11.5-14.5) Platelet Count 305 x10^3/uL (140-400) Neutrophils (%) (Auto) 57 % (31-73) Lymphocytes (%) (Auto) 30 % (24-48) Monocytes (%) (Auto) 8 % (0-9) Eosinophils (%) (Auto) 4 % (0-3) Basophils (%) (Auto) 1 % (0-3) Neutrophils # (Auto) 5.5 x10^3/uL (1.8-7.7) Lymphocytes # (Auto) 2.9 x10^3/uL (1.0-4.8) Monocytes # (Auto) 0.8 x10^3/uL (0.0-1.1) Eosinophils # (Auto) 0.4 x10^3/uL (0.0-0.7) Basophils # (Auto) 0.1 x10^3/uL (0.0-0.2) Sodium Level 141 mmol/L (136-145) Potassium Level 4.1 mmol/L (3.5-5.1) Chloride Level 106 mmol/L (98-107) Carbon Dioxide Level 32 mmol/L (21-32) Anion Gap 3 (6-14) Blood Urea Nitrogen 7 mg/dL (7-20) Creatinine 0.9 mg/dL (0.6-1.0) Estimated GFR (Cockcroft-Gault) 61.9 Glucose Level 136 mg/dL (70-99) Calcium Level 8.1 mg/dL (8.5-10.1) Glucose (Fingerstick) 178 mg/dL (70-99) Medications Current Medications Fentanyl Citrate (Fentanyl 2ml Vial) 50 mcg 1X ONCE IVP Last administered on 01/05/21at 12:41; Start 01/05/21 at 11:45; Stop 01/05/21 at 11:46; Status DC Sodium Chloride (Normal Saline Flush) 3 ml QSHIFT PRN IV AFTER MEDS AND BLOOD DRAWS; Start 01/05/21 at 15:00 Sodium Chloride 1,000 ml @ 100 mls/hr Q10H IV Last administered on 01/05/21at 16:25; Start 01/05/21 at 15:00 Ondansetron HCl (Zofran) 4 mg PRN Q4HRS PRN IV NAUSEA/VOMITING; Start 01/05/21 at 15:00 Acetaminophen (Tylenol) 650 mg PRN Q4HRS PRN PO TEMP OVER 100.4F OR MILD PAIN; Start 01/05/21 at 15:00 Al Hydroxide/Mg Hydroxide (Mylanta Plus Xs) 30 ml PRN DAILY PRN PO HEARTBURN / GAS; Start 01/05/21 at 15:00 Sodium Monofluorophosphate (Fleet Adult) 133 ml PRN DAILY PRN SC CONSTIPATION; Start 01/05/21 at 15:00 Docusate Sodium (Colace) 100 mg PRN BID PRN PO HARD STOOLS; Start 01/05/21 at 15:00 Albuterol Sulfate (Ventolin Neb Soln) 2.5 mg PRN Q4HRS PRN NEB SHORTNESS OF BREATH; Start 01/05/21 at 15:00 Guaifenesin (Robitussin) 200 mg PRN Q4HRS PRN PO COUGH; Start 01/05/21 at 15:00 Lorazepam (Ativan) 0.5 mg PRN Q4HRS PRN PO ANXIETY / AGITATION; Start 01/05/21 at 15:00 Enoxaparin Sodium (Lovenox 40mg Syringe) 40 mg Q24H SQ Last administered on 01/05/21at 21:00; Start 01/05/21 at 21:00 Aspirin (Aspirin Chewable) 81 mg QODAY PO ; Start 01/07/21 at 09:00 Atorvastatin Calcium (Lipitor) 20 mg HS PO Last administered on 01/05/21at 20:13; Start 01/05/21 at 21:00 Carvedilol (Coreg) 3.125 mg BIDWMEALS PO Last administered on 01/05/21at 18:21; Start 01/05/21 at 17:00 Furosemide (Lasix) 40 mg BID94 PO Last administered on 01/05/21at 18:22; Start 01/05/21 at 17:00 Acetaminophen/ Hydrocodone Bitart (Lortab 7.5/325) 1 tab PRN Q4HRS PRN PO MODERATE PAIN Last administered on 01/05/21at 20:13; Start 01/05/21 at 15:45 Levothyroxine Sodium (Synthroid) 50 mcg DAILYAC PO Last administered on 01/06/21at 06:07; Start 01/06/21 at 07:30 Montelukast Sodium (Singulair) 10 mg DAILY PO ; Start 01/06/21 at 09:00 Nitroglycerin (Nitrostat) 0.4 mg PRN Q5MIN PRN SL CHEST PAIN; Start 01/05/21 at 15:45 Fish Oil (Fish Oil) 1,000 mg DAILY PO ; Start 01/06/21 at 09:00 Non-Formulary Medication (Alendronate Sodium/Vitamin D3 (Fosamax Plus D 70 Mg- 2,800 Iu)) 1 each WEEKLY PO ; Start 01/12/21 at 09:00; Status UNV Amlodipine Besylate (Norvasc) 2.5 mg HS PO Last administered on 01/05/21at 20:13; Start 01/05/21 at 21:00 Calcium/Vitamin D (Oscal D 500mg/ 200uts) 2 tab HS PO Last administered on 01/05/21at 20:12; Start 01/05/21 at 21:00 Citalopram Hydrobromide (CeleXA) 20 mg HS PO Last administered on 01/05/21at 20:13; Start 01/05/21 at 21:00 Non-Formulary Medication (Fluticasone/ Salmeterol (Advair 250-50 Diskus)) 1 puff BID IH ; Start 01/05/21 at 21:00; Status UNV Insulin Glargine (Lantus Syringe) 30 unit QHS SQ Last administered on 01/05/21at 22:46; Start 01/05/21 at 21:00 Isosorbide Mononitrate (Imdur) 120 mg DAILY PO ; Start 01/06/21 at 09:00 Multivitamins (Thera M Plus) 1 tab DAILY PO ; Start 01/06/21 at 09:00 Non-Formulary Medication ([place]-3/Dha/Epa/ Fish Oil (Fish Oil 1,000 mg Softgel)) 1,000 mg HS PO ; Start 01/05/21 at 21:00; Status UNV Pantoprazole Sodium (Protonix) 40 mg DAILYAC PO Last administered on 01/06/21at 06:08; Start 01/06/21 at 07:30 Potassium Chloride (Klor-Con) 20 meq DAILYWBKFT PO ; Start 01/06/21 at 08:00 Cetirizine HCl (ZyrTEC) 10 mg DAILY PO ; Start 01/06/21 at 09:00 Acetaminophen/ Hydrocodone Bitart (Lortab 7.5/325) 2 tab PRN Q4HRS PRN PO SEVERE PAIN; Start 01/05/21 at 16:00 Albuterol Sulfate (Ventolin Neb Soln) 2.5 mg RTQID NEB Last administered on 01/06/21at 07:40; Start 01/05/21 at 16:00 Budesonide (Pulmicort) 0.5 mg RTBID NEB Last administered on 01/06/21at 07:40; Start 01/05/21 at 20:00 Dextrose (Dextrose 50%-Water Syringe) 12.5 gm PRN Q15MIN PRN IV SEE COMMENTS; Start 01/05/21 at 18:00 Insulin Human Lispro (HumaLOG) 0-7 UNITS TIDWMEALS SQ ; Start 01/06/21 at 08:00 Dextrose (Dextrose 50%-Water Syringe) 12.5 gm PRN Q15MIN PRN IV SEE COMMENTS; Start 01/05/21 at 18:00; Status Cancel Active Scripts Active Hydrocodone-Apap 7.5-325 (Hydrocodone Bit/Acetaminophen) 1 Tab Tablet 1-2 Tab PO PRN Q4HRS PRN 1-2 tablets by mouth every 4 hours as needed for pain Reported Calcium 600 + Vit D Caplet (Calcium Carbonate/Vitamin D3) 1 Each Tablet 2 Tab PO HS 30 Days Glyburide 5 Mg Tablet 5 Mg PO DAILY Fish Oil 1,000 mg Softgel ([place]-3/Dha/Epa/Fish Oil) 1,000 Mg Capsule 1,000 Mg PO HS Victoza 3-Darío (Liraglutide) 0.6 Mg/0.1 Ml Pen.injctr 1.8 Mg SQ DAILY Irbesartan 300 Mg Tablet 1 Tab PO DAILY Omeprazole 20 Mg Tablet.dr 1 Tab PO DAILY Glipizide 10 Mg Tablet 1 Tab PO BID Advair 250-50 Diskus (Fluticasone/Salmeterol) 1 Each Disk.w.dev 1 Puff IH BID Aspirin 81 Mg Tab.chew 1 Tab PO QODAY Montelukast Sodium Tablet (Montelukast Sodium) 10 Mg Tablet 10 Mg PO DAILY Novolog Flexpen (Insulin Aspart) 100 Unit/1 Ml Insuln.pen 10 Unit SQ QID Fish Oil 1,000 Mg Capsule ([place]-3 Fatty Acids/Fish Oil) 1 Each Capsule 1 Each P O DAILY Naproxen Sodium 550 Mg Tablet 220 Mg PO DAILY Levemir (Insulin Detemir) 100 Unit/1 Ml Vial 30 Unit SQ HS Amlodipine Besylate 2.5 Mg Tablet 2.5 Mg PO HS Nitrostat (Nitroglycerin) 0.4 Mg Tab.subl 0.4 Mg SL PRN Q5MIN PRN Not given. Resume at home as needed for chest pain. Fosamax Plus D 70 Mg-2,800 Iu (Alendronate Sodium/Vitamin D3) 1 Each Tablet 1 Each PO WEEKLY Escitalopram Oxalate 10 Mg Tablet 10 Mg PO HS Atorvastatin Calcium 20 Mg Tablet 20 Mg PO HS Multi-Vitamin Daily (Multivitamin) 1 Each Tablet 1 Each PO DAILY Loratadine 10 Mg Tab.rapdis 10 Mg PO DAILY Isosorbide Mononitrate Er (Isosorbide Mononitrate) 120 Mg Tab.er.24h 120 Mg PO DAILY Levothyroxine Sodium 50 Mcg Tablet 50 Mcg PO DAILYAC Furosemide 40 Mg Tablet 40 Mg PO BID Metformin Hcl 1,000 Mg Tablet 1,000 Mg PO BID MDD Carvedilol (Carvedilol) 3.125 Mg Tablet 3.125 Mg PO BID K-Tab ER (Potassium Chloride) 20 Meq Tablet.er 20 Meq PO DAILY Vitals/I & O Vital Sign - Last 24 Hours 01/05/21 01/05/21 01/05/21 01/05/21 11:20 12:26 12:41 12:56 Temp 98.5 98.5 Pulse 69 66 71 Resp 15 17 20 22 B/P (MAP) 133/60 (84) 154/66 (95) 140/61 (87) Pulse Ox 97 99 99 96 O2 Delivery Nasal Cannula Room Air Nasal Cannula Room Air O2 Flow Rate 3.0 2.0 01/05/21 01/05/21 01/05/21 01/05/21 13:26 13:56 14:24 14:54 Pulse 68 71 70 72 Resp 24 22 17 B/P (MAP) 136/60 (85) 142/65 (90) 152/65 (94) 137/62 (87) Pulse Ox 95 99 96 96 O2 Delivery Room Air Room Air Room Air Room Air 01/05/21 01/05/21 01/05/21 01/05/21 15:24 15:35 15:43 15:59 Pulse 70 82 78 Resp 21 B/P (MAP) 132/73 (92) 138/76 (96) 147/72 (97) Pulse Ox 96 96 95 95 O2 Delivery Room Air Room Air Nasal Cannula Nasal Cannula O2 Flow Rate 2.0 2.0 01/05/21 01/05/21 01/05/21 01/05/21 16:54 18:21 19:15 20:07 Temp 97.8 97.8 Pulse 74 74 75 Resp 16 20 B/P (MAP) 140/62 (88) 140/62 142/75 (97) Pulse Ox 95 97 100 O2 Delivery Room Air Room Air Room Air 01/05/21 01/05/21 01/05/21 01/05/21 20:13 20:13 20:43 22:35 Temp 98.2 98.2 Pulse 74 73 Resp 16 16 20 B/P (MAP) 140/62 122/56 (78) Pulse Ox 100 98 98 O2 Delivery Room Air Room Air Nasal Cannula O2 Flow Rate 2.0 2.0 2.0 01/06/21 01/06/21 01/06/21 02:23 07:00 07:40 Temp 98.2 97.8 98.2 97.8 Pulse 69 70 Resp 20 20 B/P (MAP) 154/67 (96) 134/63 (86) Pulse Ox 97 96 99 O2 Delivery Nasal Cannula Nasal Cannula Nasal Cannula O2 Flow Rate 2.0 2.0 2.0 Intake and Output 01/05/21 01/05/21 01/06/21 15:00 23:00 07:00 Intake Total 200 ml Output Total 800 ml Balance -600 ml Justicifation of Admission Dx: Justifications for Admission: Justification of Admission Dx: No MARY BLANCA MD Jan 06, 2021 08:41
[2021-01-06] MEDS: CARVEDILOL 3.125 MG TABLET. PO SCH (08:44)
[2021-01-06] MEDS: FUROSEMIDE 40 MG TABLET. PO SCH (08:45)
[2021-01-06] MEDS: INSULIN LISPRO 300 UNITS/3 ML VIAL. SQ SCH ×2 (08:54→12:10)
[2021-01-06] MEDS ORDERED: ISOSORBIDE MONONITRATE ER 30 MG TAB.ER.24H PO SCH (09:00)
[2021-01-06] MEDS ORDERED: IRON POLYSACCHARIDE COMPLEX 150 MG CAPSULE PO SCH (09:00)
[2021-01-06] MEDS ORDERED: MONTELUKAST SODIUM 10 MG TABLET. PO SCH (09:00)
[2021-01-06] MEDS ORDERED: MULTIVITAMIN with MINERAL TABLET. PO SCH (09:00)
[2021-01-06] MEDS ORDERED: OMEGA-3 FATTY ACIDS/FISH OIL 1,000 MG CAPSULE. PO SCH (09:00)
[2021-01-06] MEDS ORDERED: CETIRIZINE HCL 10 MG TABLET. PO SCH (09:00)
[2021-01-06 11:00] VITALS: BP 142/63
--- NOTE | 2021-01-06 12:06 | PDOC2 ---
JEROME BLACKWOOD [employer] 01/06/21 1206: CARDIAC CONSULT DATE OF CONSULT Date of Consult DATE: 01/06/21 TIME: 11:41 REASON FOR CONSULT Reason for Consult: Syncope REFERRING PHYSICIAN Referring Physician: Fullbright SOURCE Source: Chart review, Patient HISTORY OF PRESENT ILLNESS HISTORY OF PRESENT ILLNESS This is a 70 yo female admitted for complains of fall. She has had multiple episodes of fall so far. She recently had LMD at [facility] on December 18. No associated dizzines, vertigo or passing out. she fell backwards yesterday and hit her head but no lost of consciousness. She has been falling and it just happens. No palpitations, CP or SOA. Sometimes she fells weak to her legs but mainly issues with balance. PAST MEDICAL HISTORY Cardiovascular: CAD (with known small vessel disease), CHF, HTN, Hyperlipidemia CENTRAL NERVOUS SYSTEM: Carpal Tunnel Syndrome GI: GERD Heme/Onc: Other (ITP) Endocrine: Diabetes, Hypothyroidism Dermatology: Other (skin CA unspecified) PAST SURGICAL HISTORY Past Surgical History: Arthroscopy (RTSA), Cholecystectomy, Total knee replacement (left knee x2), Tubal Ligation, Tonsillectomy, Hysterectomy, Other (foot surgery, LMD, CTS repair) FAMILY HISTORY Family History: Stroke SOCIAL HISTORY Smoke: No ALCOHOL: none Drugs: None Lives: with Family CURRENT MEDICATIONS CURRENT MEDICATIONS Current Medications Medications (Trade) Dose Ordered Sig/Petey Route PRN Reason Start Time Stop Time Status Last Admin Dose Admin Fentanyl Citrate (Fentanyl 2ml Vial) 50 mcg 1X ONCE IVP 01/05/21 11:45 01/05/21 11:46 DC 01/05/21 12:41 Sodium Chloride 1,000 ml @ 100 mls/hr Q10H IV 01/05/21 15:00 01/05/21 16:25 Enoxaparin Sodium (Lovenox 40mg Syringe) 40 mg Q24H SQ 01/05/21 21:00 01/05/21 21:00 Atorvastatin Calcium (Lipitor) 20 mg HS PO 01/05/21 21:00 01/05/21 20:13 Carvedilol (Coreg) 3.125 mg BIDWMEALS PO 01/05/21 17:00 01/06/21 08:44 Furosemide (Lasix) 40 mg BID94 PO 01/05/21 17:00 01/06/21 08:45 Acetaminophen/ Hydrocodone Bitart (Lortab 7.5/325) 1 tab PRN Q4HRS PRN PO MODERATE PAIN 01/05/21 15:45 01/05/21 20:13 Levothyroxine Sodium (Synthroid) 50 mcg DAILYAC PO 01/06/21 07:30 01/06/21 06:07 Montelukast Sodium (Singulair) 10 mg DAILY PO 01/06/21 09:00 01/06/21 08:44 Fish Oil (Fish Oil) 1,000 mg DAILY PO 01/06/21 09:00 01/06/21 08:45 Amlodipine Besylate (Norvasc) 2.5 mg HS PO 01/05/21 21:00 01/05/21 20:13 Calcium/Vitamin D (Oscal D 500mg/ 200uts) 2 tab HS PO 01/05/21 21:00 01/05/21 20:12 Citalopram Hydrobromide (CeleXA) 20 mg HS PO 01/05/21 21:00 01/05/21 20:13 Insulin Glargine (Lantus Syringe) 30 unit QHS SQ 01/05/21 21:00 01/05/21 22:46 Isosorbide Mononitrate (Imdur) 120 mg DAILY PO 01/06/21 09:00 01/06/21 08:45 Multivitamins (Thera M Plus) 1 tab DAILY PO 01/06/21 09:00 01/06/21 08:45 Pantoprazole Sodium (Protonix) 40 mg DAILYAC PO 01/06/21 07:30 01/06/21 06:08 Potassium Chloride (Klor-Con) 20 meq DAILYWBKFT PO 01/06/21 08:00 01/06/21 08:44 Cetirizine HCl (ZyrTEC) 10 mg DAILY PO 01/06/21 09:00 01/06/21 08:44 Albuterol Sulfate (Ventolin Neb Soln) 2.5 mg RTQID NEB 01/05/21 16:00 01/06/21 07:40 Budesonide (Pulmicort) 0.5 mg RTBID NEB 01/05/21 20:00 01/06/21 07:40 Insulin Human Lispro (HumaLOG) 0-7 UNITS TIDWMEALS SQ 01/06/21 08:00 01/06/21 08:54 Polysaccharide Iron Complex (Niferex 150) 150 mg DAILY PO 01/06/21 09:00 01/06/21 09:47 ALLERGIES ALLERGIES: Coded Allergies: niacin (Verified Allergy, Intermediate, Rash, 01/05/21) silver (Verified Allergy, Intermediate, RASH/BLISTERS; AQUACEL AG DRESSING, 01/05/21) codeine (Verified Adverse Reaction, Intermediate, Nausea and Vomiting, 01/05/21) nifedipine (Verified Adverse Reaction, Intermediate, Nausea and Vomiting, 01/05/21) oxycodone (Verified Adverse Reaction, Intermediate, HEADACHE, 01/05/21) hallucinates propoxyphene (Verified Adverse Reaction, Intermediate, passed out, 01/05/21) ROS Review of System 14 point ROS evaluated with pertinent positives noted per HPI PHYSICAL EXAM General: Alert, Oriented X3, Cooperative, No acute distress HEENT: Atraumatic, Mucous membr. moist/pink Lungs: Clear to auscultation, Normal air movement Heart: Regular rate (SR), Normal S1, Normal S2, No murmurs Abdomen: Soft, No tenderness Extremities: No cyanosis, No edema Skin: No breakdown, No significant lesion Neuro: Normal speech, Sensation intact Psych/Mental Status: Mental status NL, Mood NL MUSCULOSKELETAL: Osteoarthritic changes both hands VITALS/I&O VITALS/I&O: Vital Signs Date Time Temp Pulse Resp B/P (MAP) Pulse Ox O2 Delivery O2 Flow Rate FiO2 01/06/21 08:45 70 134/63 01/06/21 08:00 Room Air 01/06/21 07:40 99 2.0 01/06/21 07:00 97.8 20 97.8 I & O 01/05/21 01/05/21 01/06/21 15:00 23:00 07:00 Intake Total 200 ml Output Total 800 ml Balance -600 ml LABS Lab: Laboratory Tests Test 01/05/21 12:54 01/05/21 14:25 01/05/21 14:45 01/05/21 21:02 White Blood Count 10.6 x10^3/uL (4.0-11.0) Red Blood Count 4.03 x10^6/uL (3.50-5.40) Hemoglobin 9.8 g/dL (12.0-15.5) L Hematocrit 30.8 % (36.0-47.0) L Mean Corpuscular Volume 77 fL (79-100) L Mean Corpuscular Hemoglobin 24 pg (25-35) L Mean Corpuscular Hemoglobin Concent 32 g/dL (31-37) Red Cell Distribution Width 16.9 % (11.5-14.5) H Platelet Count 327 x10^3/uL (140-400) Neutrophils (%) (Auto) 67 % (31-73) Lymphocytes (%) (Auto) 22 % (24-48) L Monocytes (%) (Auto) 7 % (0-9) Eosinophils (%) (Auto) 4 % (0-3) H Basophils (%) (Auto) 1 % (0-3) Neutrophils # (Auto) 7.1 x10^3/uL (1.8-7.7) Lymphocytes # (Auto) 2.3 x10^3/uL (1.0-4.8) Monocytes # (Auto) 0.7 x10^3/uL (0.0-1.1) Eosinophils # (Auto) 0.4 x10^3/uL (0.0-0.7) Basophils # (Auto) 0.1 x10^3/uL (0.0-0.2) Sodium Level 141 mmol/L (136-145) Potassium Level 4.1 mmol/L (3.5-5.1) Chloride Level 104 mmol/L (98-107) Carbon Dioxide Level 30 mmol/L (21-32) Anion Gap 7 (6-14) Blood Urea Nitrogen 7 mg/dL (7-20) Creatinine 0.7 mg/dL (0.6-1.0) Estimated GFR (Cockcroft-Gault) 82.7 BUN/Creatinine Ratio 10 (6-20) Glucose Level 79 mg/dL (70-99) Calcium Level 8.6 mg/dL (8.5-10.1) Iron Level 24 ug/dL (50-170) L Total Iron Binding Capacity 337 ug/dL (250-450) Iron Saturation 7 % (15-34) L Total Bilirubin 0.2 mg/dL (0.2-1.0) Aspartate Amino Transferase (AST) 9 U/L (15-37) L Alanine Aminotransferase (ALT) 13 U/L (14-59) L Alkaline Phosphatase 105 U/L (46-116) Troponin I Quantitative < 0.017 ng/mL (0.000-0.055) LR-Xvh-R-Type Natriuretic Peptide 123 pg/mL (0-124) Total Protein 6.9 g/dL (6.4-8.2) Albumin 3.0 g/dL (3.4-5.0) L Albumin/Globulin Ratio 0.8 (1.0-1.7) L Urine Collection Type Unknown Urine Color Yellow Urine Clarity Clear Urine pH 6.5 (<5.0-8.0) Urine Specific [place] <=1.005 (1.000-1.030) Urine Protein Negative mg/dL (NEG-TRACE) Urine Glucose (UA) Negative mg/dL (NEG) Urine Ketones (Stick) Negative mg/dL (NEG) Urine Blood Negative (NEG) Urine Nitrite Negative (NEG) Urine Bilirubin Negative (NEG) Urine Urobilinogen Dipstick 1.0 mg/dL (0.2 mg/dL) Urine Leukocyte Esterase Moderate (NEG) Urine RBC 0 /HPF (0-2) Urine WBC >40 /HPF (0-4) Urine Squamous Epithelial Cells Mod /LPF Urine Bacteria Many /HPF (0-FEW) SARS-CoV-2 RNA (BELLA) Negative (Negative) SARS-CoV-2 Antigen (Rapid) Negative (NEGATIVE) Glucose (Fingerstick) 130 mg/dL (70-99) H Test 01/06/21 04:00 01/06/21 07:18 White Blood Count 9.7 x10^3/uL (4.0-11.0) Red Blood Count 3.86 x10^6/uL (3.50-5.40) Hemoglobin 9.4 g/dL (12.0-15.5) L Hematocrit 29.8 % (36.0-47.0) L Mean Corpuscular Volume 77 fL (79-100) L Mean Corpuscular Hemoglobin 24 pg (25-35) L Mean Corpuscular Hemoglobin Concent 32 g/dL (31-37) Red Cell Distribution Width 17.2 % (11.5-14.5) H Platelet Count 305 x10^3/uL (140-400) Neutrophils (%) (Auto) 57 % (31-73) Lymphocytes (%) (Auto) 30 % (24-48) Monocytes (%) (Auto) 8 % (0-9) Eosinophils (%) (Auto) 4 % (0-3) H Basophils (%) (Auto) 1 % (0-3) Neutrophils # (Auto) 5.5 x10^3/uL (1.8-7.7) Lymphocytes # (Auto) 2.9 x10^3/uL (1.0-4.8) Monocytes # (Auto) 0.8 x10^3/uL (0.0-1.1) Eosinophils # (Auto) 0.4 x10^3/uL (0.0-0.7) Basophils # (Auto) 0.1 x10^3/uL (0.0-0.2) Sodium Level 141 mmol/L (136-145) Potassium Level 4.1 mmol/L (3.5-5.1) Chloride Level 106 mmol/L (98-107) Carbon Dioxide Level 32 mmol/L (21-32) Anion Gap 3 (6-14) L Blood Urea Nitrogen 7 mg/dL (7-20) Creatinine 0.9 mg/dL (0.6-1.0) Estimated GFR (Cockcroft-Gault) 61.9 Glucose Level 136 mg/dL (70-99) H Calcium Level 8.1 mg/dL (8.5-10.1) L Glucose (Fingerstick) 178 mg/dL (70-99) H Laboratory Tests 01/05/21 12:54 01/06/21 04:00 Laboratory Tests 01/05/21 12:54 01/06/21 04:00 ASSESSMENT/PLAN ASSESSMENT/PLAN 1. Nontraumatic fall: associated with balance. No associated syncope or hypoglycemia 2. Frequent falls: neuropathic involvement is possible given her DM issue 3. CAD; clinically stable 4. HTN: controlled 5. HLP 6. Multiple orthopaedic procedure: namely TKA, TSA and recent LMD 7. DM2 8. Hypothyroidism: on replacement 9. Fe def anemia: per PCP recommendations 1. Consider neurology consult 2. Continue secondary prevention measures. ASA statin 3. Continue home BP regimen and NTG. EKG JESUS PAYTON MD 01/06/212014: CARDIAC CONSULT ASSESSMENT/PLAN ASSESSMENT/PLAN The patient was seen and interviewed as well as examined at the bedside. The chart was reviewed. The case was discussed. Agree with the plan of care. Given 6 near syncopal falls in the last year, plan for loop recorder on an outpt basis. Thanks JEROME BLACKWOOD APRN Jan 06, 2021 12:06 JESUS PAYTON MD Jan 06, 2021 20:15
--- NOTE | 2021-01-06 12:36 | EKG ---
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
--- NOTE | 2021-01-06 13:25 | NUR ---
SS following for discharge planning. SS reviewed pt chart and discussed with pt RN. Pt is from home with spouse and is currently requiring oxygen at two liters nasal canula. Pt has home oxygen at HS. COVID19 negative[address] Dr[address] Singleton, GI, and Neurology consulted. Six minute walk ordered. PT/OT recommended home. SS will continue to follow for discharge planning.
--- NOTE | 2021-01-06 13:49 | PDOC2 ---
GI CONSULT Date of Service: DATE: 01/06/21 TIME: 13:24 Reason For Consult: anemia HPI: HPI: Pleasant 70 y/o female admitted w/ frequent falls. Noted w/ CATHERINE and we are asked to see. Recalls anemia years ago but doesn't think has been an issue recently. says she has some leftover iron pills at home. Denies obvious GI bleeding including hematemesis, hematochezia, and melena. H/o heartburn controlled w/ omeprazole QD. No dysphagia, n/v, abdominal pain, diarrhea, constipation, change in appetite, or weight loss. No previous EGD. Reports normal colonoscopy performed somewhere in the area ~10 years ago. She was advised to return for a check-up in 10 years. S/p cholecystectomy for stones. No liver, pancreas, or PUD history. Previously took NSAIDs but advised to stop some time ago. Does take ASA 81mg QD. H/o ITP w/ past infusions; saw hematology at [facility] but was told follow-up was no longer needed. Had back surgery "with rods and screws" @ [facility] on 12/18/20 and is to have shoulder surgery soon. Able to review labs from [facility] - Hgb 11 to 9 there, iron deficiency also noted. Anemia noted intermittently here in the past as well. She'd like to go home today. PMH: PMH: CAD, CHF, HTN, HLD, ITP, DM, hypothyroidism, skin cancer cholecystectomy, appendectomy, tubal ligation, hysterectomy, CTR, back surgery, right shoulder surgery, left knee replacement, foot surgery, kyphoplasty, tonsillectomy FH: Family History: No pertinent hx (denies GI cancers) Social History: Smoke: No ALCOHOL: none Drugs: None ROS: GEN: Denies fevers, chills, sweats HEENT: Denies blurred vision, sore throat CV: Denies chest pain RESP: Denies shortness of air, cough GI: Per HPI : Denies hematuria, dysuria ENDO: Denies weight changes NEURO: Denies confusion, dizziness MSK: +back soreness/recent surgery SKIN: Denies jaundice, pruritus Vitals: Vitals: Vital Signs Date Time Temp Pulse Resp B/P (MAP) Pulse Ox O2 Delivery O2 Flow Rate FiO2 01/06/21 11:00 97.7 70 20 142/63 (89) 97 Nasal Cannula 2.0 97.7 Labs: Labs: Laboratory Tests Test 01/05/21 14:25 01/05/21 14:45 01/05/21 21:02 01/06/21 04:00 Urine Collection Type Unknown Urine Color Yellow Urine Clarity Clear Urine pH 6.5 (<5.0-8.0) Urine Specific [place] <=1.005 (1.000-1.030) Urine Protein Negative mg/dL (NEG-TRACE) Urine Glucose (UA) Negative mg/dL (NEG) Urine Ketones (Stick) Negative mg/dL (NEG) Urine Blood Negative (NEG) Urine Nitrite Negative (NEG) Urine Bilirubin Negative (NEG) Urine Urobilinogen Dipstick 1.0 mg/dL (0.2 mg/dL) Urine Leukocyte Esterase Moderate (NEG) Urine RBC 0 /HPF (0-2) Urine WBC >40 /HPF (0-4) Urine Squamous Epithelial Cells Mod /LPF Urine Bacteria Many /HPF (0-FEW) SARS-CoV-2 RNA (BELLA) Negative (Negative) SARS-CoV-2 Antigen (Rapid) Negative (NEGATIVE) Glucose (Fingerstick) 130 mg/dL (70-99) White Blood Count 9.7 x10^3/uL (4.0-11.0) Red Blood Count 3.86 x10^6/uL (3.50-5.40) Hemoglobin 9.4 g/dL (12.0-15.5) Hematocrit 29.8 % (36.0-47.0) Mean Corpuscular Volume 77 fL (79-100) Mean Corpuscular Hemoglobin 24 pg (25-35) Mean Corpuscular Hemoglobin Concent 32 g/dL (31-37) Red Cell Distribution Width 17.2 % (11.5-14.5) Platelet Count 305 x10^3/uL (140-400) Neutrophils (%) (Auto) 57 % (31-73) Lymphocytes (%) (Auto) 30 % (24-48) Monocytes (%) (Auto) 8 % (0-9) Eosinophils (%) (Auto) 4 % (0-3) Basophils (%) (Auto) 1 % (0-3) Neutrophils # (Auto) 5.5 x10^3/uL (1.8-7.7) Lymphocytes # (Auto) 2.9 x10^3/uL (1.0-4.8) Monocytes # (Auto) 0.8 x10^3/uL (0.0-1.1) Eosinophils # (Auto) 0.4 x10^3/uL (0.0-0.7) Basophils # (Auto) 0.1 x10^3/uL (0.0-0.2) Sodium Level 141 mmol/L (136-145) Potassium Level 4.1 mmol/L (3.5-5.1) Chloride Level 106 mmol/L (98-107) Carbon Dioxide Level 32 mmol/L (21-32) Anion Gap 3 (6-14) Blood Urea Nitrogen 7 mg/dL (7-20) Creatinine 0.9 mg/dL (0.6-1.0) Estimated GFR (Cockcroft-Gault) 61.9 Glucose Level 136 mg/dL (70-99) Calcium Level 8.1 mg/dL (8.5-10.1) Test 01/06/21 07:18 01/06/21 11:43 Glucose (Fingerstick) 178 mg/dL (70-99) 243 mg/dL (70-99) Allergies: Coded Allergies: niacin (Verified Allergy, Intermediate, Rash, 01/05/21) silver (Verified Allergy, Intermediate, RASH/BLISTERS; AQUACEL AG DRESSING, 01/05/21) codeine (Verified Adverse Reaction, Intermediate, Nausea and Vomiting, 01/05/21) nifedipine (Verified Adverse Reaction, Intermediate, Nausea and Vomiting, 01/05/21) oxycodone (Verified Adverse Reaction, Intermediate, HEADACHE, 01/05/21) hallucinates propoxyphene (Verified Adverse Reaction, Intermediate, passed out, 01/05/21) Medications: Current Medications Medications (Trade) Dose Ordered Sig/Petey Route PRN Reason Start Time Stop Time Status Last Admin Dose Admin Sodium Chloride 1,000 ml @ 100 mls/hr Q10H IV 01/05/21 15:00 01/05/21 16:25 Enoxaparin Sodium (Lovenox 40mg Syringe) 40 mg Q24H SQ 01/05/21 21:00 01/05/21 21:00 Atorvastatin Calcium (Lipitor) 20 mg HS PO 01/05/21 21:00 01/05/21 20:13 Carvedilol (Coreg) 3.125 mg BIDWMEALS PO 01/05/21 17:00 01/06/21 08:44 Furosemide (Lasix) 40 mg [id number] PO 01/05/21 17:00 01/06/21 08:45 Acetaminophen/ Hydrocodone Bitart (Lortab 7.5/325) 1 tab PRN Q4HRS PRN PO MODERATE PAIN 01/05/21 15:45 01/05/21 20:13 Levothyroxine Sodium (Synthroid) 50 mcg DAILYAC PO 01/06/21 07:30 01/06/21 06:07 Montelukast Sodium (Singulair) 10 mg DAILY PO 01/06/21 09:00 01/06/21 08:44 Fish Oil (Fish Oil) 1,000 mg DAILY PO 01/06/21 09:00 01/06/21 08:45 Amlodipine Besylate (Norvasc) 2.5 mg HS PO 01/05/21 21:00 01/05/21 20:13 Calcium/Vitamin D (Oscal D 500mg/ 200uts) 2 tab HS PO 01/05/21 21:00 01/05/21 20:12 Citalopram Hydrobromide (CeleXA) 20 mg HS PO 01/05/21 21:00 01/05/21 20:13 Insulin Glargine (Lantus Syringe) 30 unit QHS SQ 01/05/21 21:00 01/05/21 22:46 Isosorbide Mononitrate (Imdur) 120 mg DAILY PO 01/06/21 09:00 01/06/21 08:45 Multivitamins (Thera M Plus) 1 tab DAILY PO 01/06/21 09:00 01/06/21 08:45 Pantoprazole Sodium (Protonix) 40 mg DAILYAC PO 01/06/21 07:30 01/06/21 06:08 Potassium Chloride (Klor-Con) 20 meq DAILYWBKFT PO 01/06/21 08:00 01/06/21 08:44 Cetirizine HCl (ZyrTEC) 10 mg DAILY PO 01/06/21 09:00 01/06/21 08:44 Albuterol Sulfate (Ventolin Neb Soln) 2.5 mg RTQID NEB 01/05/21 16:00 01/06/21 07:40 Budesonide (Pulmicort) 0.5 mg RTBID NEB 01/05/21 20:00 01/06/21 07:40 Insulin Human Lispro (HumaLOG) 0-7 UNITS TIDWMEALS SQ 01/06/21 08:00 01/06/21 12:10 Polysaccharide Iron Complex (Niferex 150) 150 mg DAILY PO 01/06/21 09:00 01/06/21 09:47 Imaging: Imaging: CXR 01/05 IMPRESSION: 1. No acute pulmonary finding. 2. Right shoulder arthroplasty in expected position. 3. Mild right acromioclavicular joint osteoarthritis. CT Head and C-Spine IMPRESSION: No acute fracture. L-spine CT IMPRESSION: No acute osseous abnormality of the lumbar spine. Shoulder X-Ray IMPRESSION: 1. No acute pulmonary finding. 2. Right shoulder arthroplasty in expected position. 3. Mild right acromioclavicular joint osteoarthritis. Carotid Doppler IMPRESSION: 1. No evidence of hemodynamically significant stenosis. Echocardiogram 01/06 pending PE: GEN: NAD, in recliner HEENT: Atraumatic, PERRL LUNGS: CTAB anteriorly, NC 2L HEART: RRR ABD: NABS, S/ND/NT EXTREMITY: No edema SKIN: No rashes, no jaundice NEURO/PSYCH: A & O 3 A/P: A/P: Falls CATHERINE - denies obvious GI bleeding Heartburn on PPI CRC screen - reportedly normal ~10 years ago S/p cholecystectomy CAD on ASA, h/o ITP, hypothyroidism Recent back surgery -- Continue PPI. Resume iron BID. Follow-up for outpt EGD and colonoscopy when recovered from surgeries. Okay to DC per GI. GABRIEL BALL Jan 06, 2021 13:49
--- NOTE | 2021-01-06 13:51 | PDOC3 ---
Discharge Summary Date of Admission: Jan 05, 2021 Date of Discharge: Jan 06, 2021 Follow-Up: 3-5 days Admitting Diagnosis comment: Assessment/Plan Assessment/Plan discharge dx Syncopal episode, UNWITNESSED , possible vaso-vagal but cannot exclude arrythmia history of diabetes, GERD, high blood pressure, hypothyroidism, 3 L of oxygen at night, HX LA, heart cath, HX knee replacement, HX chf Right shoulder arthroplasty right acromioclavicular joint osteoarthritis microcytic anemia, likely fe deficient ACUTE HYPOXIC RESP FAILURE plan====== admit due to hx ASHD, Consult cardiology cardiology consult Neurochecks q 4 hrs tele bed ORTHOSTATIC BP fe so4 po daily, consider endoscopy as out patient PT/OT Neurology consult PER CARDIOLOGY ABG, 6 MIN WALK, D DIMER prior to d/c A1C Consult DR BANDA d/c planning 32 min Ambulation Comments * no loss of balance noted Other Information * Pt is indep with mobility using RW and encouraged use of RW upon return home. Orthostatic BP stable. No skilled PT intervention indicated no follow up planned. Pt may benefit from outpatinet pt to address balance related to falls. D/W RN D/W ER Justifications for Admission Other Justification History of Present Illness History of Present Illness Identification/Chief Complaint Chief Complaint fall possible loc History of Present Illness History of Present Illness 70 year old female who presented with a fall was walking to the restroom at a food establishment when she suddenly fell. does not remember tripping. does have frequent falls but does not know why. denies syncope but then she states she is unsure. Patient had a recent lumbar surgery at [facility] on December 18. Patient did hit her head who complains of a headache to the back of the head. also complains of lumbar spinal pain and some neck pain./ also c omplaining of right shoulder pain. She denies having felt sick or abnormal prior to falling CT UNREMARKABLE Past Medical History Past Medical History Past Medical History Past Surgical History: Knee Replacement, Other Additional Past Surgical Histo: back Smoking Status: Never Smoker Alcohol Use: None Right shoulder arthroplasty right acromioclavicular joint osteoarthritis ight knee patellar tendon reconstruction with hamstring allograft 2016 FHX ASHD Cardiovascular: CHF, HTN, Other Pulmonary: Asthma, COPD Musculoskeletal: low back pain, Osteoarthritis Endocrine: Diabetes Past Surgical History Past Surgical History: Appendectomy, Cholecystectomy, Total knee replacement, Tonsillectomy, Hysterectomy, Other Family History Family History: Cancer, Heart Disease, Hypertension, Stroke Social History Smoke: No ALCOHOL: none Drugs: None Current Medications Current Medications Current Medications Fentanyl Citrate (Fentanyl 2ml Vial) 50 mcg 1X ONCE IVP Last administered on 01/05/21at 12:41; Start 01/05/21 at 11:45; Stop 01/05/21 at 11:46; Status DC Active Scripts Active Hydrocodone-Apap 7.5-325 (Hydrocodone Bit/Acetaminophen) 1 Tab Tablet 1-2 Tab PO PRN Q4HRS PRN 1-2 tablets by mouth every 4 hours as needed for pain Reported Calcium 600 + Vit D Caplet (Calcium Carbonate/Vitamin D3) 1 Each Tablet 2 Tab PO HS 30 Days Glyburide 5 Mg Tablet 5 Mg PO DAILY Fish Oil 1,000 mg Softgel (Gorham-3/Dha/Epa/Fish Oil) 1,000 Mg Capsule 1,000 Mg PO HS Victoza 3-Darío (Liraglutide) 0.6 Mg/0.1 Ml Pen.injctr 1.8 Mg SQ DAILY Irbesartan 300 Mg Tablet 1 Tab PO DAILY Omeprazole 20 Mg Tablet.dr 1 Tab PO DAILY Glipizide 10 Mg Tablet 1 Tab PO BID Advair 250-50 Diskus (Fluticasone/Salmeterol) 1 Each Disk.w.dev 1 Puff IH BID Aspirin 81 Mg Tab.chew 1 Tab PO QODAY Montelukast Sodium Tablet (Montelukast Sodium) 10 Mg Tablet 10 Mg PO DAILY Novolog Flexpen (Insulin Aspart) 100 Unit/1 Ml Insuln.pen 10 Unit SQ QID Fish Oil 1,000 Mg Capsule (Gorham-3 Fatty Acids/Fish Oil) 1 Each Capsule 1 Each PO DAILY Naproxen Sodium 550 Mg Tablet 220 Mg PO DAILY Levemir (Insulin Detemir) 100 Unit/1 Ml Vial 30 Unit SQ HS Amlodipine Besylate 2.5 Mg Tablet 2.5 Mg PO HS Nitrostat (Nitroglycerin) 0.4 Mg Tab.subl 0.4 Mg SL PRN Q5MIN PRN Not given. Resume at home as needed for chest pain. Fosamax Plus D 70 Mg-2,800 Iu (Alendronate Sodium/Vitamin D3) 1 Each Tablet 1 Each PO WEEKLY Escitalopram Oxalate 10 Mg Tablet 10 Mg PO HS Atorvastatin Calcium 20 Mg Tablet 20 Mg PO HS Multi-Vitamin Daily (Multivitamin) 1 Each Tablet 1 Each PO DAILY Loratadine 10 Mg Tab.rapdis 10 Mg PO DAILY Isosorbide Mononitrate Er (Isosorbide Mononitrate) 120 Mg Tab.er.24h 120 Mg PO DAILY Levothyroxine Sodium 50 Mcg Tablet 50 Mcg PO DAILYAC Furosemide 40 Mg Tablet 40 Mg PO BID Metformin Hcl 1,000 Mg Tablet 1,000 Mg PO BID MDD Carvedilol (Carvedilol) 3.125 Mg Tablet 3.125 Mg PO BID K-Tab ER (Potassium Chloride) 20 Meq Tablet.er 20 Meq PO DAILY Allergies Allergies: Coded Allergies: niacin (Verified Allergy, Intermediate, Rash, 01/05/21) silver (Verified Allergy, Intermediate, RASH/BLISTERS; AQUACEL AG DRESSING, 01/05/21) codeine (Verified Adverse Reaction, Intermediate, Nausea and Vomiting, 01/05/21) nifedipine (Verified Adverse Reaction, Intermediate, Nausea and Vomiting, 01/05/21) oxycodone (Verified Adverse Reaction, Intermediate, HEADACHE, 01/05/21) hallucinates propoxyphene (Verified Adverse Reaction, Intermediate, passed out, 01/05/21) ROS General: No: Chills, Night Sweats, Fatigue, Malaise, Appetite, Other PSYCHOLOGICAL ROS: No: Anxiety, Behavioral Disorder, Concentration difficultie, Decreased libido, Depression, Disorientation, Hallucinations, Hostility, Irritablity, Memory difficulties, Mood Swings, Obsessive thoughts, Physical abuse, Sexual abuse, Sleep disturbances, Suicidal ideation, Other Eyes: No Blurry vision, No Decreased vision, No Double vision, No Dry eyes, No Excessive tearing, No Eye Pain, No Itchy Eyes, No Loss of vision, No Photophobia, No Scotomata, No Uses contacts, No Uses glasses, No Other HEENT: YES: Heacaches; No: Visual Changes, Hearing change, Nasal congestion, Nasal discharge, Oral lesions, Sinus pain, Sore Throat, Epistaxis, Sneezing, Snoring, Tinnitus, Vertigo, Vocal changes, Other ALLERGY AND IMMUNOLOGY: YES: Hives; No: Insect Bite Sensitivity, Itchy/Watery Eyes, Nasal Congestion, Post Nasal Drip, Seasonal Allergies, Other Hematological and Lymphatic: No: Bleeding Problems, Blood Clots, Blood Transfusions, Brusing, Night Sweats, Pallor, Swollen Lymph Nodes, Other ENDOCRINE: No: Breast Changes, Galactorrhea, Hair Pattern Changes, Hot Flashes, Malaise/lethargy, Mood Swings, Palpitations, Polydipsia/polyuria, Skin Changes, Temperature Intolerance, Unexpected Weight Changes, Other Breast: No New/Changing Breast Lumps, No Nipple changes, No Nipple discharge, No Other Respiratory: No: Cough, Hemoptysis, Orthopnea, Pleuritic Pain, Shortness of breath, SOB with excertion, Sputum Changes, Stridor, Tachypnea, Wheezing, Other Cardiovascular: No Chest Pain, No Palpitations, No Orthopnea, No Paroxysmal Noc. Dyspnea, No Edema, No Lt Headedness, No Other Gastrointestinal: No Nausea, No Vomiting, No Abdominal Pain, No Diarrhea, No Constipation, No Melena, No Hematochezia, No Other Genitourinary: No Dysuria, No Frequency, No Incontinence, No Hematuria, No Retention, No Discharge, No Urgency, No Pain, No Flank Pain, No Other, No , No , No , No , No , No , No Musculoskeletal: Yes Gait Disturbance, Yes Joint Stiffness; No Joint Pain, No Joint Swelling, No Muscle Pain, No Muscular Weakness, No Pain In:, No Swelling In:, No Other Neurological: Yes Gait Disturbance; No Behavorial Changes, No Bowel/Bladder ControlChng, No Confusion, No Diz ziness, No Headaches, No Impaired Coord/balance, No Memory Loss, No Numbness/Tingling, No Seizures, No Speech Problems, No Tremors, No Visual Changes, No Weakness, No Other Skin: No Dry Skin, No Eczema, No Hair Changes, No Lumps, No Mole Changes, No Mottling, No Nail Changes, No Pruritus, No Rash, No Skin Lesion Changes, No Other, No Acne Vitals Vitals Vital Signs Date Time Temp Pulse Resp B/P (MAP) Pulse Ox O2 Delivery O2 Flow Rate FiO2 01/06/21 07:40 99 Nasal Cannula 2.0 01/06/21 07:00 97.8 70 20 134/63 (86) 97.8 Physical Exam Physical Exam Physical Exam Constitutional: Well developed, well nourished, no acute distress, non-toxic appearance. [] HENT: Normocephalic, atraumatic, bilateral external ears normal, oropharynx moist, no oral exudates, nose normal. [] Eyes: PERRLA, EOMI, conjunctiva normal, no discharge. [] Neck: Normal range of motion, cervical tenderness, supple, no stridor. [] Cardiovascular:Heart rate regular rhythm, no murmur [] Lungs & Thorax: Bilateral breath sounds clear to auscultation [] Abdomen: Bowel sounds normal, soft, no tenderness, no masses, no pulsatile masses. [] Skin: Warm, dry, no erythema, no rash. [] Back: Lumbar tenderness, no CVA tenderness. [] Extremities: No tenderness, no cyanosis, no clubbing, ROM intact, no edema. [] Neurologic: Alert and oriented X 3, normal motor function, normal sensory function, no focal deficits noted. [] Psychologic: Affect normal, judgment normal, mood normal. [] General: Alert, Oriented X3, Cooperative Lungs: Clear to auscultation, Normal air movement Heart: RRR, no thrills, no gallops, no jug vein distention Breasts: Not examined Abdomen: Normal bowel sounds, Soft Rectal Exam: not examined PELVIC: Examination not indicated Extremities: No cyanosis Neuro: Normal speech, Cranial nerves 3-12 NL Psych/Mental Status: Mental status NL, Moo General: Alert, Oriented X3, Cooperative, No acute distress Heart: Regular rate, Normal S1, Normal S2 Lungs: Clear Abdomen: Normal bowel sounds, Soft, No tenderness, No hepatosplenomegaly Extremities: No clubbing, No cyanosis, No edema Labs LABS * Pt reports soreness from fall but rates pain 0/10 Rolling Right Assistance Required * Independent * Bedrail Used Supine to Sit Assistance Required * Independent * Bedrail Used Bed Mobility Comments * labored with push up Transfer Assistance Required * Independent Transfer Type * Sit to Stand Transfer Assistive Device * Roller Walker Transfer Comments * from bed and toilet Ambulation Assistance Required * Independent Ambulation Assistive Device * Roller Walker Ambulation Distance * 350' Gait Impairments * Slow Wendy Ambulation Comments * no loss of balance noted Other Information * Pt is indep with mobility using RW and encouraged use of RW upon return home. Orthostatic BP stable. No skilled PT intervention indicated no follow up planned. Pt may benefit from outpatinet pt to address balance related to falls. Learning Preferences * One-on-One Instruction Clinical Presentation * Stable Evaluation Complexity Level * Low Complexity Pt/caregiver agrees with plan of care/goals * Yes Patient condition at conclusion of therapy * Pt in chair * Personal alarm on * Call light in reach * Phone in reach * PtIn no apparent distress * * EXAM: Lumbar spine MRI without contrast. HISTORY: Lumbar radiculopathy. Fall. FINAL DIAGNOSIS Problems Medical Problems: (1) Fall Status: Acute (2) Syncopal episodes Status: Acute Brief Hospital Course Ms. Swain is a 70 old [sex] who presented with [fall ] CONDITION AT DISCHARGE: Improved Discharge Medications Current Medications Fentanyl Citrate (Fentanyl 2ml Vial) 50 mcg 1X ONCE IVP Last administered on 01/05/21at 12:41; Start 01/05/21 at 11:45; Stop 01/05/21 at 11:46; Status DC Sodium Chloride (Normal Saline Flush) 3 ml QSHIFT PRN IV AFTER MEDS AND BLOOD DRAWS; Start 01/05/21 at 15:00 Sodium Chloride 1,000 ml @ 100 mls/hr Q10H IV Last administered on 01/05/21at 16:25; Start 01/05/21 at 15:00 Ondansetron HCl (Zofran) 4 mg PRN Q4HRS PRN IV NAUSEA/VOMITING; Start 01/05/21 at 15:00 Acetaminophen (Tylenol) 650 mg PRN Q4HRS PRN PO TEMP OVER 100.4F OR MILD PAIN; Start 01/05/21 at 15:00 Al Hydroxide/Mg Hydroxide (Mylanta Plus Xs) 30 ml PRN DAILY PRN PO HEARTBURN / GAS; Start 01/05/21 at 15:00 Sodium Monofluorophosphate (Fleet Adult) 133 ml PRN DAILY PRN PA CONSTIPATION; Start 01/05/21 at 15:00 Docusate Sodium (Colace) 100 mg PRN BID PRN PO HARD STOOLS; Start 01/05/21 at 15:00 Albuterol Sulfate (Ventolin Neb Soln) 2.5 mg PRN Q4HRS PRN NEB SHORTNESS OF BREATH; Start 01/05/21 at 15:00 Guaifenesin (Robitussin) 200 mg PRN Q4HRS PRN PO COUGH; Start 01/05/21 at 15:00 Lorazepam (Ativan) 0.5 mg PRN Q4HRS PRN PO ANXIETY / AGITATION; Start 01/05/21 at 15:00 Enoxaparin Sodium (Lovenox 40mg Syringe) 40 mg Q24H SQ Last administered on 01/05/21at 21:00; Start 01/05/21 at 21:00 Aspirin (Aspirin Chewable) 81 mg QODAY PO ; Start 01/07/21 at 09:00 Atorvastatin Calcium (Lipitor) 20 mg HS PO Last administered on 01/05/21at 20:13; Start 01/05/21 at 21:00 Carvedilol (Coreg) 3.125 mg BIDWMEALS PO Last administered on 01/06/21at 08:44; Start 01/05/21 at 17:00 Furosemide (Lasix) 40 mg BID94 PO Last administered on 01/06/21at 08:45; Start 01/05/21 at 17:00 Acetaminophen/ Hydrocodone Bitart (Lortab 7.5/325) 1 tab PRN Q4HRS PRN PO MODERATE PAIN Last administered on 01/05/21at 20:13; Start 01/05/21 at 15:45 Levothyroxine Sodium (Synthroid) 50 mcg DAILYAC PO Last administered on 01/06/21at 06:07; Start 01/06/21 at 07:30 Montelukast Sodium (Singulair) 10 mg DAILY PO Last administered on 01/06/21at 08:44; Start 01/06/21 at 09:00 Nitroglycerin (Nitrostat) 0.4 mg PRN Q5MIN PRN SL CHEST PAIN; Start 01/05/21 at 15:45 Fish Oil (Fish Oil) 1,000 mg DAILY PO Last administered on 01/06/21at 08:45; Start 01/06/21 at 09:00 Non-Formulary Medication (Alendronate Sodium/Vitamin D3 (Fosamax Plus D 70 Mg- 2,800 Iu)) 1 each WEEKLY PO ; Start 01/12/21 at 09:00; Status UNV Amlodipine Besylate (Norvasc) 2.5 mg HS PO Last administered on 01/05/21at 20:13; Start 01/05/21 at 21:00 Calcium/Vitamin D (Oscal D 500mg/ 200uts) 2 tab HS PO Last administered on 01/05/21at 20:12; Start 01/05/21 at 21:00 Citalopram Hydrobromide (CeleXA) 20 mg HS PO Last administered on 01/05/21at 20:13; Start 01/05/21 at 21:00 Non-Formulary Medication (Fluticasone/ Salmeterol (Advair 250-50 Diskus)) 1 puff BID IH ; Start 01/05/21 at 21:00; Status UNV Insulin Glargine (Lantus Syringe) 30 unit QHS SQ Last administered on 01/05/21at 22:46; Start 01/05/21 at 21:00 Isosorbide Mononitrate (Imdur) 120 mg DAILY PO Last administered on 01/06/21 08:45; Start 01/06/21 at 09:00 Multivitamins (Thera M Plus) 1 tab DAILY PO Last administered on 01/06/21at 08:45; Start 01/06/21 at 09:00 Non-Formulary Medication (Gorham-3/Dha/Epa/ Fish Oil (Fish Oil 1,000 mg Softgel)) 1,000 mg HS PO ; Start 01/05/21 at 21:00; Status UNV Pantoprazole Sodium (Protonix) 40 mg DAILYAC PO Last administered on 01/06/21at 06:08; Start 01/06/21 at 07:30 Potassium Chloride (Klor-Con) 20 meq DAILYWBKFT PO Last administered on 01/06/21at 08:44; Start 01/06/21 at 08:00 Cetirizine HCl (ZyrTEC) 10 mg DAILY PO Last administered on 01/06/21at 08:44; Start 01/06/21 at 09:00 Acetaminophen/ Hydrocodone Bitart (Lortab 7.5/325) 2 tab PRN Q4HRS PRN PO SEVERE PAIN; Start 01/05/21 at 16:00 Albuterol Sulfate (Ventolin Neb Soln) 2.5 mg RTQID NEB Last administered on 01/06/21at 07:40; Start 01/05/21 at 16:00 Budesonide (Pulmicort) 0.5 mg RTBID NEB Last administered on 01/06/21at 07:40; Start 01/05/21 at 20:00 Dextrose (Dextrose 50%-Water Syringe) 12.5 gm PRN Q15MIN PRN IV SEE COMMENTS; Start 01/05/21 at 18:00 Insulin Human Lispro (HumaLOG) 0-7 UNITS TIDWMEALS SQ Last administered on 01/06/21at 12:10; Start 01/06/21 at 08:00 Dextrose (Dextrose 50%-Water Syringe) 12.5 gm PRN Q15MIN PRN IV SEE COMMENTS; Start 01/05/21 at 18:00; Status Cancel Polysaccharide Iron Complex (Niferex 150) 150 mg DAILY PO Last administered on 01/06/21at 09:47; Start 01/06/21 at 09:00 Active Scripts Active Hydrocodone-Apap 7.5-325 (Hydrocodone Bit/Acetaminophen) 1 Tab Tablet 1-2 Tab PO PRN Q4HRS PRN 1-2 tablets by mouth every 4 hours as needed for pain Reported Calcium 600 + Vit D Caplet (Calcium Carbonate/Vitamin D3) 1 Each Tablet 2 Tab PO HS 30 Days Glyburide 5 Mg Tablet 5 Mg PO DAILY Fish Oil 1,000 mg Softgel (Gorham-3/Dha/Epa/Fish Oil) 1,000 Mg Capsule 1,000 Mg PO HS Victoza 3-Darío (Liraglutide) 0.6 Mg/0.1 Ml Pen.injctr 1.8 Mg SQ DAILY Irbesartan 300 Mg Tablet 1 Tab PO DAILY Omeprazole 20 Mg Tablet.dr 1 Tab PO DAILY Glipizide 10 Mg Tablet 1 Tab PO BID Advair 250-50 Diskus (Fluticasone/Salmeterol) 1 Each Disk.w.dev 1 Puff IH BID Aspirin 81 Mg Tab.chew 1 Tab PO QODAY Montelukast Sodium Tablet (Montelukast Sodium) 10 Mg Tablet 10 Mg PO DAILY Novolog Flexpen (Insulin Aspart) 100 Unit/1 Ml Insuln.pen 10 Unit SQ QID Fish Oil 1,000 Mg Capsule (Gorham-3 Fatty Acids/Fish Oil) 1 Each Capsule 1 Each PO DAILY Naproxen Sodium 550 Mg Tablet 220 Mg PO DAILY Levemir (Insulin Detemir) 100 Unit/1 Ml Vial 30 Unit SQ HS Amlodipine Besylate 2.5 Mg Tablet 2.5 Mg PO HS Nitrostat (Nitroglycerin) 0.4 Mg Tab.subl 0.4 Mg SL PRN Q5MIN PRN Not given. Resume at home as needed for chest pain. Fosamax Plus D 70 Mg-2,800 Iu (Alendronate Sodium/Vitamin D3) 1 Each Tablet 1 Each PO WEEKLY Escitalopram Oxalate 10 Mg Tablet 10 Mg PO HS Atorvastatin Calcium 20 Mg Tablet 20 Mg PO HS Multi-Vitamin Daily (Multivitamin) 1 Each Tablet 1 Each PO DAILY Loratadine 10 Mg Tab.rapdis 10 Mg PO DAILY Isosorbide Mononitrate Er (Isosorbide Mononitrate) 120 Mg Tab.er.24h 120 Mg PO DAILY Levothyroxine Sodium 50 Mcg Tablet 50 Mcg PO DAILYAC Furosemide 40 Mg Tablet 40 Mg PO BID Metformin Hcl 1,000 Mg Tablet 1,000 Mg PO BID MDD Carvedilol (Carvedilol) 3.125 Mg Tablet 3.125 Mg PO BID K-Tab ER (Potassium Chloride) 20 Meq Tablet.er 20 Meq PO DAILY Vital Signs Vital Signs Date Time Temp Pulse Resp B/P (MAP) Pulse Ox O2 Delivery O2 Flow Rate FiO2 01/06/21 11:00 97.7 70 20 142/63 (89) 97 Nasal Cannula 2.0 97.7 Labs Laboratory Tests Test 01/05/21 12:54 01/05/21 14:25 01/05/21 14:45 01/05/21 21:02 White Blood Count 10.6 x10^3/uL (4.0-11.0) Red Blood Count 4.03 x10^6/uL (3.50-5.40) Hemoglobin 9.8 g/dL (12.0-15.5) Hematocrit 30.8 % (36.0-47.0) Mean Corpuscular Volume 77 fL (79-100) Mean Corpuscular Hemoglobin 24 pg (25-35) Mean Corpuscular Hemoglobin Concent 32 g/dL (31-37) Red Cell Distribution Width 16.9 % (11.5-14.5) Platelet Count 327 x10^3/uL (140-400) Neutrophils (%) (Auto) 67 % (31-73) Lymphocytes (%) (Auto) 22 % (24-48) Monocytes (%) (Auto) 7 % (0-9) Eosinophils (%) (Auto) 4 % (0-3) Basophils (%) (Auto) 1 % (0-3) Neutrophils # (Auto) 7.1 x10^3/uL (1.8-7.7) Lymphocytes # (Auto) 2.3 x10^3/uL (1.0-4.8) Monocytes # (Auto) 0.7 x10^3/uL (0.0-1.1) Eosinophils # (Auto) 0.4 x10^3/uL (0.0-0.7) Basophils # (Auto) 0.1 x10^3/uL (0.0-0.2) Sodium Level 141 mmol/L (136-145) Potassium Level 4.1 mmol/L (3.5-5.1) Chloride Level 104 mmol/L (98-107) Carbon Dioxide Level 30 mmol/L (21-32) Anion Gap 7 (6-14) Blood Urea Nitrogen 7 mg/dL (7-20) Creatinine 0.7 mg/dL (0.6-1.0) Estimated GFR (Cockcroft-Gault) 82.7 BUN/Creatinine Ratio 10 (6-20) Glucose Level 79 mg/dL (70-99) Calcium Level 8.6 mg/dL (8.5-10.1) Iron Level 24 ug/dL (50-170) Total Iron Binding Capacity 337 ug/dL (250-450) Iron Saturation 7 % (15-34) Total Bilirubin 0.2 mg/dL (0.2-1.0) Aspartate Amino Transf (AST/SGOT) 9 U/L (15-37) Alanine Aminotransferase (ALT/SGPT) 13 U/L (14-59) Alkaline Phosphatase 105 U/L (46-116) Troponin I Quantitative < 0.017 ng/mL (0.000-0.055) TO-Kcc-N-Type Natriuretic Peptide 123 pg/mL (0-124) Total Protein 6.9 g/dL (6.4-8.2) Albumin 3.0 g/dL (3.4-5.0) Albumin/Globulin Ratio 0.8 (1.0-1.7) Urine Collection Type Unknown Urine Color Yellow Urine Clarity Clear Urine pH 6.5 (<5.0-8.0) Urine Specific Everett <=1.005 (1.000-1.030) Urine Protein Negative mg/dL (NEG-TRACE) Urine Glucose (UA) Negative mg/dL (NEG) Urine Ketones (Stick) Negative mg/dL (NEG) Urine Blood Negative (NEG) Urine Nitrite Negative (NEG) Urine Bilirubin Negative (NEG) Urine Urobilinogen Dipstick 1.0 mg/dL (0.2 mg/dL) Urine Leukocyte Esterase Moderate (NEG) Urine RBC 0 /HPF (0-2) Urine WBC >40 /HPF (0-4) Urine Squamous Epithelial Cells Mod /LPF Urine Bacteria Many /HPF (0-FEW) SARS-CoV-2 RNA (BELLA) Negative (Negative) SARS-CoV-2 Antigen (Rapid) Negative (NEGATIVE) Glucose (Fingerstick) 130 mg/dL (70-99) Test 01/06/21 04:00 01/06/21 07:18 01/06/21 11:43 White Blood Count 9.7 x10^3/uL (4.0-11.0) Red Blood Count 3.86 x10^6/uL (3.50-5.40) Hemoglobin 9.4 g/dL (12.0-15.5) Hematocrit 29.8 % (36.0-47.0) Mean Corpuscular Volume 77 fL (79-100) Mean Corpuscular Hemoglobin 24 pg (25-35) Mean Corpuscular Hemoglobin Concent 32 g/dL (31-37) Red Cell Distribution Width 17.2 % (11.5-14.5) Platelet Count 305 x10^3/uL (140-400) Neutrophils (%) (Auto) 57 % (31-73) Lymphocytes (%) (Auto) 30 % (24-48) Monocytes (%) (Auto) 8 % (0-9) Eosinophils (%) (Auto) 4 % (0-3) Basophils (%) (Auto) 1 % (0-3) Neutrophils # (Auto) 5.5 x10^3/uL (1.8-7.7) Lymphocytes # (Auto) 2.9 x10^3/uL (1.0-4.8) Monocytes # (Auto) 0.8 x10^3/uL (0.0-1.1) Eosinophils # (Auto) 0.4 x10^3/uL (0.0-0.7) Basophils # (Auto) 0.1 x10^3/uL (0.0-0.2) Sodium Level 141 mmol/L (136-145) Potassium Level 4.1 mmol/L (3.5-5.1) Chloride Level 106 mmol/L (98-107) Carbon Dioxide Level 32 mmol/L (21-32) Anion Gap 3 (6-14) Blood Urea Nitrogen 7 mg/dL (7-20) Creatinine 0.9 mg/dL (0.6-1.0) Estimated GFR (Cockcroft-Gault) 61.9 Glucose Level 136 mg/dL (70-99) Calcium Level 8.1 mg/dL (8.5-10.1) Glucose (Fingerstick) 178 mg/dL (70-99) 243 mg/dL (70-99) Laboratory Tests Test 01/05/21 14:25 01/05/21 14:45 01/05/21 21:02 01/06/21 04:00 Urine Collection Type Unknown Urine Color Yellow Urine Clarity Clear Urine pH 6.5 (<5.0-8.0) Urine Specific Everett <=1.005 (1.000-1.030) Urine Protein Negative mg/dL (NEG-TRACE) Urine Glucose (UA) Negative mg/dL (NEG) Urine Ketones (Stick) Negative mg/dL (NEG) Urine Blood Negative (NEG) Urine Nitrite Negative (NEG) Urine Bilirubin Negative (NEG) Urine Urobilinogen Dipstick 1.0 mg/dL (0.2 mg/dL) Urine Leukocyte Esterase Moderate (NEG) Urine RBC 0 /HPF (0-2) Urine WBC >40 /HPF (0-4) Urine Squamous Epithelial Cells Mod /LPF Urine Bacteria Many /HPF (0-FEW) SARS-CoV-2 RNA (BELLA) Negative (Negative) SARS-CoV-2 Antigen (Rapid) Negative (NEGATIVE) Glucose (Fingerstick) 130 mg/dL (70-99) White Blood Count 9.7 x10^3/uL (4.0-11.0) Red Blood Count 3.86 x10^6/uL (3.50-5.40) Hemoglobin 9.4 g/dL (12.0-15.5) Hematocrit 29.8 % (36.0-47.0) Mean Corpuscular Volume 77 fL (79-100) Mean Corpuscular Hemoglobin 24 pg (25-35) Mean Corpuscular Hemoglobin Concent 32 g/dL (31-37) Red Cell Distribution Width 17.2 % (11.5-14.5) Platelet Count 305 x10^3/uL (140-400) Neutrophils (%) (Auto) 57 % (31-73) Lymphocytes (%) (Auto) 30 % (24-48) Monocytes (%) (Auto) 8 % (0-9) Eosinophils (%) (Auto) 4 % (0-3) Basophils (%) (Auto) 1 % (0-3) Neutrophils # (Auto) 5.5 x10^3/uL (1.8-7.7) Lymphocytes # (Auto) 2.9 x10^3/uL (1.0-4.8) Monocytes # (Auto) 0.8 x10^3/uL (0.0-1.1) Eosinophils # (Auto) 0.4 x10^3/uL (0.0-0.7) Basophils # (Auto) 0.1 x10^3/uL (0.0-0.2) Sodium Level 141 mmol/L (136-145) Potassium Level 4.1 mmol/L (3.5-5.1) Chloride Level 106 mmol/L (98-107) Carbon Dioxide Level 32 mmol/L (21-32) Anion Gap 3 (6-14) Blood Urea Nitrogen 7 mg/dL (7-20) Creatinine 0.9 mg/dL (0.6-1.0) Estimated GFR (Cockcroft-Gault) 61.9 Glucose Level 136 mg/dL (70-99) Calcium Level 8.1 mg/dL (8.5-10.1) Test 01/06/21 07:18 01/06/21 11:43 Glucose (Fingerstick) 178 mg/dL (70-99) 243 mg/dL (70-99) Allergies Allergies Coded Allergies Type Severity Reaction Last Updated Verified niacin Allergy Intermediate Rash 01/05/21 Yes silver Allergy Intermediate RASH/BLISTERS; AQUACEL AG DRESSING 01/05/21 Yes codeine Adverse Reaction Intermediate Nausea and Vomiting 01/05/21 Yes nifedipine Adverse Reaction Intermediate Nausea and Vomiting 01/05/21 Yes oxycodone Adverse Reaction Intermediate HEADACHE 01/05/21 Yes propoxyphene Adverse Reaction Intermediate passed out 01/05/21 Yes Disposition/Orders: D/C to Home Justicifation of Admission Dx: Justifications for Admission: Justification of Admission Dx: No MARY BLANCA MD Jan 06, 2021 13:51
[2021-01-06] MEDS ORDERED: FERR325T72 PO (13:54)
--- NOTE | 2021-01-06 13:56 | DISCH ---
DISCHARGE INSTRUCTIONS Condition on Discharge Condition on Discharge: Stable Activity After Discharge Activity Instructions for Disc: Activity as tolerated Bathing Instructions: Shower-keep dressing dry Lifting Instructions after Dis: No heavy lifting, Do not lift >10 pounds Exercise Instruction after Dis: Progress as tolerated Driving Instructions after Dis: Do not drive, Do not drive today Weight Bearing Status after Di: No restrictions Diet after Discharge Diet after Discharge: Diabetic No Calorie Level Diet Texture: Regular Liquid Texture: Thin Liquid Swallowing Supervision: None needed Wound Incision Care Wound/Incision Care: Ice to area for comfort Wound Care Equipment: Dressings Checks after Discharge Checks after discharge: Check blood press - daily, Check blood sugar, ac/hs Contacting the DR. after DC Call your doctor for: If your condition worsens Follow-Up Follow up with: out patiet pt./ot, SEE PCP IN 5-10 DAYS Treatment/Equipment after DC Adaptive Equipment Issued: None, Front wheeled walker Discharge Respiratory Equipmen: Oxygen MARY BLANCA MD Jan 06, 2021 13:55
--- NOTE | 2021-01-06 14:29 | PDOC2 ---
NEUROLOGY CONSULT Date of Service DOS: DATE: 01/06/21 TIME: 14:19 Reason for Consult Reason for Consult: Syncope Referring Physician Referring Physician: Dr. Cruz Source Source: Caregiver (), Chart review, Patient History of Present Illness History of Present Illness The patient is a 70-year-old right-handed female who was on an uneven sidewalk, using her walker to get to a restroom when she suddenly fell backwards. She struck her head. She is now certain that she did not lose consciousness. was about a half a block away and saw the whole thing. Patient just had lumbar spine surgery at [facility] on December 18 and has been getting around with a walker. She wants to go home now. She was told to hold on physical therapy until she sees her spine surgeon. Our physical therapists have seen the patient and cleared her for discharge. There is no history of stroke, actual loss of consciousness, seizure. She has struck her head in the past. Past Medical History Cardiovascular: CAD, HTN, Hyperlipidemia, Valve insufficiency, Other (Peripheral vascular disease) Pulmonary: Asthma, COPD, Pneumonia, Other (Sleep apnea) GI: GERD, Other (Hiatal hernia) Heme/Onc: Anemia NOS, Other (ITP) Psych: Depression Musculoskeletal: Osteoarthritis Rheumatologic: Rheumatoid arthritis Renal/: UTI Endocrine: Diabetes, Hypothyroidism Dermatology: Other (Skin cancer) Past Surgical History Past Surgical History: Appendectomy, Cholecystectomy, Cataract Removal, Tubal Ligation, Tonsillectomy (adenoids), Hysterectomy, Other (lumbar, cardiac catheterization, bilateral carpal tunnel, left foot, T12 compression fracture) Family History Family History: DM Social History Social History , no alcohol or tobacco Current Medications Current Medications Current Medications Fentanyl Citrate (Fentanyl 2ml Vial) 50 mcg 1X ONCE IVP Last administered on 01/05/21at 12:41; Start 01/05/21 at 11:45; Stop 01/05/21 at 11:46; Status DC Sodium Chloride (Normal Saline Flush) 3 ml QSHIFT PRN IV AFTER MEDS AND BLOOD DRAWS; Start 01/05/21 at 15:00 Sodium Chloride 1,000 ml @ 100 mls/hr Q10H IV Last administered on 01/05/21at 16:25; Start 01/05/21 at 15:00 Ondansetron HCl (Zofran) 4 mg PRN Q4HRS PRN IV NAUSEA/VOMITING; Start 01/05/21 at 15:00 Acetaminophen (Tylenol) 650 mg PRN Q4HRS PRN PO TEMP OVER 100.4F OR MILD PAIN; Start 01/05/21 at 15:00 Al Hydroxide/Mg Hydroxide (Mylanta Plus Xs) 30 ml PRN DAILY PRN PO HEARTBURN / GAS; Start 01/05/21 at 15:00 Sodium Monofluorophosphate (Fleet Adult) 133 ml PRN DAILY PRN MT CONSTIPATION; Start 01/05/21 at 15:00 Docusate Sodium (Colace) 100 mg PRN BID PRN PO HARD STOOLS; Start 01/05/21 at 15:00 Albuterol Sulfate (Ventolin Neb Soln) 2.5 mg PRN Q4HRS PRN NEB SHORTNESS OF BREATH; Start 01/05/21 at 15:00 Guaifenesin (Robitussin) 200 mg PRN Q4HRS PRN PO COUGH; Start 01/05/21 at 15:00 Lorazepam (Ativan) 0.5 mg PRN Q4HRS PRN PO ANXIETY / AGITATION; Start 01/05/21 at 15:00 Enoxaparin Sodium (Lovenox 40mg Syringe) 40 mg Q24H SQ Last administered on 01/05/21at 21:00; Start 01/05/21 at 21:00 Aspirin (Aspirin Chewable) 81 mg QODAY PO ; Start 01/07/21 at 09:00 Atorvastatin Calcium (Lipitor) 20 mg HS PO Last administered on 01/05/21at 20:13; Start 01/05/21 at 21:00 Carvedilol (Coreg) 3.125 mg BIDWMEALS PO Last administered on 01/06/21at 08:44; Start 01/05/21 at 17:00 Furosemide (Lasix) 40 mg BID94 PO Last administered on 01/06/21at 08:45; Start 01/05/21 at 17:00 Acetaminophen/ Hydrocodone Bitart (Lortab 7.5/325) 1 tab PRN Q4HRS PRN PO MODERATE PAIN Last administered on 01/05/21at 20:13; Start 01/05/21 at 15:45 Levothyroxine Sodium (Synthroid) 50 mcg DAILYAC PO Last administered on 01/06/21at 06:07; Start 01/06/21 at 07:30 Montelukast Sodium (Singulair) 10 mg DAILY PO Last administered on 01/06/21at 08:44; Start 01/06/21 at 09:00 Nitroglycerin (Nitrostat) 0.4 mg PRN Q5MIN PRN SL CHEST PAIN; Start 01/05/21 at 15:45 Fish Oil (Fish Oil) 1,000 mg DAILY PO Last administered on 01/06/21at 08:45; Start 01/06/21 at 09:00 Non-Formulary Medication (Alendronate Sodium/Vitamin D3 (Fosamax Plus D 70 Mg- 2,800 Iu)) 1 each WEEKLY PO ; Start 01/12/21 at 09:00; Status UNV Amlodipine Besylate (Norvasc) 2.5 mg HS PO Last administered on 01/05/21at 20:13; Start 01/05/21 at 21:00 Calcium/Vitamin D (Oscal D 500mg/ 200uts) 2 tab HS PO Last administered on 01/05/21at 20:12; Start 01/05/21 at 21:00 Citalopram Hydrobromide (CeleXA) 20 mg HS PO Last administered on 01/05/21at 20:13; Start 01/05/21 at 21:00 Non-Formulary Medication (Fluticasone/ Salmeterol (Advair 250-50 Diskus)) 1 puff BID IH ; Start 01/05/21 at 21:00; Status UNV Insulin Glargine (Lantus Syringe) 30 unit QHS SQ Last administered on 01/05/21at 22:46; Start 01/05/21 at 21:00 Isosorbide Mononitrate (Imdur) 120 mg DAILY PO Last administered on 01/06/21at 08:45; Start 01/06/21 at 09:00 Multivitamins (Thera M Plus) 1 tab DAILY PO Last administered on 01/06/21at 08:45; Start 01/06/21 at 09:00 Non-Formulary Medication ([place]-3/Dha/Epa/ Fish Oil (Fish Oil 1,000 mg Softgel)) 1,000 mg HS PO ; Start 01/05/21 at 21:00; Status UNV Pantoprazole Sodium (Protonix) 40 mg DAILYAC PO Last administered on 01/06/21at 06:08; Start 01/06/21 at 07:30 Potassium Chloride (Klor-Con) 20 meq DAILYWBKFT PO Last administered on 01/06/21at 08:44; Start 01/06/21 at 08:00 Cetirizine HCl (ZyrTEC) 10 mg DAILY PO Last administered on 01/06/21at 08:44; Start 01/06/21 at 09:00 Acetaminophen/ Hydrocodone Bitart (Lortab 7.5/325) 2 tab PRN Q4HRS PRN PO SEVERE PAIN; Start 01/05/21 at 16:00 Albuterol Sulfate (Ventolin Neb Soln) 2.5 mg RTQID NEB Last administered on 01/06/21at 07:40; Start 01/05/21 at 16:00 Budesonide (Pulmicort) 0.5 mg RTBID NEB Last administered on 01/06/21at 07:40; Start 01/05/21 at 20:00 Dextrose (Dextrose 50%-Water Syringe) 12.5 gm PRN Q15MIN PRN IV SEE COMMENTS; Start 01/05/21 at 18:00 Insulin Human Lispro (HumaLOG) 0-7 UNITS TIDWMEALS SQ Last administered on 01/06/21at 12:10; Start 01/06/21 at 08:00 Dextrose (Dextrose 50%-Water Syringe) 12.5 gm PRN Q15MIN PRN IV SEE COMMENTS; Start 01/05/21 at 18:00; Status Cancel Polysaccharide Iron Complex (Niferex 150) 150 mg DAILY PO Last administered on 01/06/21at 09:47; Start 01/06/21 at 09:00; Stop 01/06/21 at 13:50; Status DC Ferrous Sulfate (Feosol) 325 mg BIDWMEALS PO ; Start 01/06/21 at 17:00 Active Scripts Active Feosol (Ferrous Sulfate) 325 Mg Tablet 325 Mg PO BID 30 Days Hydrocodone-Apap 7.5-325 (Hydrocodone Bit/Acetaminophen) 1 Tab Tablet 1-2 Tab PO PRN Q4HRS PRN 1-2 tablets by mouth every 4 hours as needed for pain Reported Calcium 600 + Vit D Caplet (Calcium Carbonate/Vitamin D3) 1 Each Tablet 2 Tab PO HS 30 Days Fish Oil 1,000 mg Softgel ([place]-3/Dha/Epa/Fish Oil) 1,000 Mg Capsule 1,000 Mg PO HS Victoza 3-Darío (Liraglutide) 0.6 Mg/0.1 Ml Pen.injctr 1.8 Mg SQ DAILY Omeprazole 20 Mg Tablet.dr 1 Tab PO DAILY Advair 250-50 Diskus (Fluticasone/Salmeterol) 1 Each Disk.w.dev 1 Puff IH BID Aspirin 81 Mg Tab.chew 1 Tab PO QODAY Montelukast Sodium Tablet (Montelukast Sodium) 10 Mg Tablet 10 Mg PO DAILY Novolog Flexpen (Insulin Aspart) 100 Unit/1 Ml Insuln.pen 10 Unit SQ QID Fish Oil 1,000 Mg Capsule ([place]-3 Fatty Acids/Fish Oil) 1 Each Capsule 1 Each P O DAILY Levemir (Insulin Detemir) 100 Unit/1 Ml Vial 30 Unit SQ HS Amlodipine Besylate 2.5 Mg Tablet 2.5 Mg PO HS Nitrostat (Nitroglycerin) 0.4 Mg Tab.subl 0.4 Mg SL PRN Q5MIN PRN Not given. Resume at home as needed for chest pain. Fosamax Plus D 70 Mg-2,800 Iu (Alendronate Sodium/Vitamin D3) 1 Each Tablet 1 Each PO WEEKLY Escitalopram Oxalate 10 Mg Tablet 10 Mg PO HS Atorvastatin Calcium 20 Mg Tablet 20 Mg PO HS Multi-Vitamin Daily (Multivitamin) 1 Each Tablet 1 Each PO DAILY Loratadine 10 Mg Tab.rapdis 10 Mg PO DAILY Isosorbide Mononitrate Er (Isosorbide Mononitrate) 120 Mg Tab.er.24h 120 Mg PO DAILY Levothyroxine Sodium 50 Mcg Tablet 50 Mcg PO DAILYAC Furosemide 40 Mg Tablet 40 Mg PO BID Metformin Hcl 1,000 Mg Tablet 1,000 Mg PO BID MDD Carvedilol (Carvedilol) 3.125 Mg Tablet 3.125 Mg PO BID K-Tab ER (Potassium Chloride) 20 Meq Tablet.er 20 Meq PO DAILY Allergies Allergies: Coded Allergies: niacin (Verified Allergy, Intermediate, Rash, 01/05/21) silver (Verified Allergy, Intermediate, RASH/BLISTERS; AQUACEL AG DRESSING, 01/05/21) codeine (Verified Adverse Reaction, Intermediate, Nausea and Vomiting, 01/05/21) nifedipine (Verified Adverse Reaction, Intermediate, Nausea and Vomiting, 01/05/21) oxycodone (Verified Adverse Reaction, Intermediate, HEADACHE, 01/05/21) hallucinates propoxyphene (Verified Adverse Reaction, Intermediate, passed out, 01/05/21) ROS Review of System Negative for fever, chills, weight loss, shortness of breath, chest pain, indigestion, hematochezia, melena, and dysuria. Full 14-point review of systems is negative. Physical Exam Physical Examination General: Well-developed, well-nourished white female in no acute distress HEENT: Normocephalic andatraumatic. Temporal arteriespulsatile and nontender. Neck: Supple without bruit, no meningismus Back: Well-healing surgical scar, no obvious deformities Musculoskeletal: Stability:see neurologic. Gait exam:see neurologic. Tone:see neurologic.Strength:see neurologic. Neurological: Mental Status:intact, orientation, memory, attention span/concentration, language, fund of knowledge normal. Cranial Nerves:Pupils equal and reactive to light, extraocular movements areintact, visual cruz are full to confrontation. Facial sensation is normal. There is no facial asymmetry. Vestibulo-ocular reflex is intact. Palate elevates and tongue protrudes in midline. All other cranial related problems are negative except as mentioned before.Reflexes:2+ and symmetric with flexor plantar responses. Motor:5/5 strength with normal tone and bulk. Coordination:Finger-nose finger and jrky-[id number] testing are normal. Rapid alternating movements and fine finger movements are intact. Gait:Arthritic, does well with walker. Sensory:Normal pinprick, vibration, light touch, proprioception. Vitals VITALS Vital Signs Date Time Temp Pulse Resp B/P (MAP) Pulse Ox O2 Delivery O2 Flow Rate FiO2 01/06/21 11:00 97.7 70 20 142/63 (89) 97 Nasal Cannula 2.0 97.7 Labs Labs Laboratory Tests Test 01/05/21 12:54 01/05/21 14:25 01/05/21 14:45 01/05/21 21:02 White Blood Count 10.6 x10^3/uL (4.0-11.0) Red Blood Count 4.03 x10^6/uL (3.50-5.40) Hemoglobin 9.8 g/dL (12.0-15.5) Hematocrit 30.8 % (36.0-47.0) Mean Corpuscular Volume 77 fL (79-100) Mean Corpuscular Hemoglobin 24 pg (25-35) Mean Corpuscular Hemoglobin Concent 32 g/dL (31-37) Red Cell Distribution Width 16.9 % (11.5-14.5) Platelet Count 327 x10^3/uL (140-400) Neutrophils (%) (Auto) 67 % (31-73) Lymphocytes (%) (Auto) 22 % (24-48) Monocytes (%) (Auto) 7 % (0-9) Eosinophils (%) (Auto) 4 % (0-3) Basophils (%) (Auto) 1 % (0-3) Neutrophils # (Auto) 7.1 x10^3/uL (1.8-7.7) Lymphocytes # (Auto) 2.3 x10^3/uL (1.0-4.8) Monocytes # (Auto) 0.7 x10^3/uL (0.0-1.1) Eosinophils # (Auto) 0.4 x10^3/uL (0.0-0.7) Basophils # (Auto) 0.1 x10^3/uL (0.0-0.2) Sodium Level 141 mmol/L (136-145) Potassium Level 4.1 mmol/L (3.5-5.1) Chloride Level 104 mmol/L (98-107) Carbon Dioxide Level 30 mmol/L (21-32) Anion Gap 7 (6-14) Blood Urea Nitrogen 7 mg/dL (7-20) Creatinine 0.7 mg/dL (0.6-1.0) Estimated GFR (Cockcroft-Gault) 82.7 BUN/Creatinine Ratio 10 (6-20) Glucose Level 79 mg/dL (70-99) Calcium Level 8.6 mg/dL (8.5-10.1) Iron Level 24 ug/dL (50-170) Total Iron Binding Capacity 337 ug/dL (250-450) Iron Saturation 7 % (15-34) Total Bilirubin 0.2 mg/dL (0.2-1.0) Aspartate Amino Transf (AST/SGOT) 9 U/L (15-37) Alanine Aminotransferase (ALT/SGPT) 13 U/L (14-59) Alkaline Phosphatase 105 U/L (46-116) Troponin I Quantitative < 0.017 ng/mL (0.000-0.055) GY-Bjb-G-Type Natriuretic Peptide 123 pg/mL (0-124) Total Protein 6.9 g/dL (6.4-8.2) Albumin 3.0 g/dL (3.4-5.0) Albumin/Globulin Ratio 0.8 (1.0-1.7) Urine Collection Type Unknown Urine Color Yellow Urine Clarity Clear Urine pH 6.5 (<5.0-8.0) Urine Specific Lucas <=1.005 (1.000-1.030) Urine Protein Negative mg/dL (NEG-TRACE) Urine Glucose (UA) Negative mg/dL (NEG) Urine Ketones (Stick) Negative mg/dL (NEG) Urine Blood Negative (NEG) Urine Nitrite Negative (NEG) Urine Bilirubin Negative (NEG) Urine Urobilinogen Dipstick 1.0 mg/dL (0.2 mg/dL) Urine Leukocyte Esterase Moderate (NEG) Urine RBC 0 /HPF (0-2) Urine WBC >40 /HPF (0-4) Urine Squamous Epithelial Cells Mod /LPF Urine Bacteria Many /HPF (0-FEW) SARS-CoV-2 RNA (BELLA) Negative (Negative) SARS-CoV-2 Antigen (Rapid) Negative (NEGATIVE) Glucose (Fingerstick) 130 mg/dL (70-99) Test 01/06/21 04:00 01/06/21 07:18 01/06/21 11:43 White Blood Count 9.7 x10^3/uL (4.0-11.0) Red Blood Count 3.86 x10^6/uL (3.50-5.40) Hemoglobin 9.4 g/dL (12.0-15.5) Hematocrit 29.8 % (36.0-47.0) Mean Corpuscular Volume 77 fL (79-100) Mean Corpuscular Hemoglobin 24 pg (25-35) Mean Corpuscular Hemoglobin Concent 32 g/dL (31-37) Red Cell Distribution Width 17.2 % (11.5-14.5) Platelet Count 305 x10^3/uL (140-400) Neutrophils (%) (Auto) 57 % (31-73) Lymphocytes (%) (Auto) 30 % (24-48) Monocytes (%) (Auto) 8 % (0-9) Eosinophils (%) (Auto) 4 % (0-3) Basophils (%) (Auto) 1 % (0-3) Neutrophils # (Auto) 5.5 x10^3/uL (1.8-7.7) Lymphocytes # (Auto) 2.9 x10^3/uL (1.0-4.8) Monocytes # (Auto) 0.8 x10^3/uL (0.0-1.1) Eosinophils # (Auto) 0.4 x10^3/uL (0.0-0.7) Basophils # (Auto) 0.1 x10^3/uL (0.0-0.2) Sodium Level 141 mmol/L (136-145) Potassium Level 4.1 mmol/L (3.5-5.1) Chloride Level 106 mmol/L (98-107) Carbon Dioxide Level 32 mmol/L (21-32) Anion Gap 3 (6-14) Blood Urea Nitrogen 7 mg/dL (7-20) Creatinine 0.9 mg/dL (0.6-1.0) Estimated GFR (Cockcroft-Gault) 61.9 Glucose Level 136 mg/dL (70-99) Calcium Level 8.1 mg/dL (8.5-10.1) Glucose (Fingerstick) 178 mg/dL (70-99) 243 mg/dL (70-99) Laboratory Tests Test 01/05/21 14:25 01/05/21 14:45 01/05/21 21:02 01/06/21 04:00 Urine Collection Type Unknown Urine Color Yellow Urine Clarity Clear Urine pH 6.5 (<5.0-8.0) Urine Specific Lucas <=1.005 (1.000-1.030) Urine Protein Negative mg/dL (NEG-TRACE) Urine Glucose (UA) Negative mg/dL (NEG) Urine Ketones (Stick) Negative mg/dL (NEG) Urine Blood Negative (NEG) Urine Nitrite Negative (NEG) Urine Bilirubin Negative (NEG) Urine Urobilinogen Dipstick 1.0 mg/dL (0.2 mg/dL) Urine Leukocyte Esterase Moderate (NEG) Urine RBC 0 /HPF (0-2) Urine WBC >40 /HPF (0-4) Urine Squamous Epithelial Cells Mod /LPF Urine Bacteria Many /HPF (0-FEW) SARS-CoV-2 RNA (BELLA) Negative (Negative) SARS-CoV-2 Antigen (Rapid) Negative (NEGATIVE) Glucose (Fingerstick) 130 mg/dL (70-99) White Blood Count 9.7 x10^3/uL (4.0-11.0) Red Blood Count 3.86 x10^6/uL (3.50-5.40) Hemoglobin 9.4 g/dL (12.0-15.5) Hematocrit 29.8 % (36.0-47.0) Mean Corpuscular Volume 77 fL (79-100) Mean Corpuscular Hemoglobin 24 pg (25-35) Mean Corpuscular Hemoglobin Concent 32 g/dL (31-37) Red Cell Distribution Width 17.2 % (11.5-14.5) Platelet Count 305 x10^3/uL (140-400) Neutrophils (%) (Auto) 57 % (31-73) Lymphocytes (%) (Auto) 30 % (24-48) Monocytes (%) (Auto) 8 % (0-9) Eosinophils (%) (Auto) 4 % (0-3) Basophils (%) (Auto) 1 % (0-3) Neutrophils # (Auto) 5.5 x10^3/uL (1.8-7.7) Lymphocytes # (Auto) 2.9 x10^3/uL (1.0-4.8) Monocytes # (Auto) 0.8 x10^3/uL (0.0-1.1) Eosinophils # (Auto) 0.4 x10^3/uL (0.0-0.7) Basophils # (Auto) 0.1 x10^3/uL (0.0-0.2) Sodium Level 141 mmol/L (136-145) Potassium Level 4.1 mmol/L (3.5-5.1) Chloride Level 106 mmol/L (98-107) Carbon Dioxide Level 32 mmol/L (21-32) Anion Gap 3 (6-14) Blood Urea Nitrogen 7 mg/dL (7-20) Creatinine 0.9 mg/dL (0.6-1.0) Estimated GFR (Cockcroft-Gault) 61.9 Glucose Level 136 mg/dL (70-99) Calcium Level 8.1 mg/dL (8.5-10.1) Test 01/06/21 07:18 01/06/21 11:43 Glucose (Fingerstick) 178 mg/dL (70-99) 243 mg/dL (70-99) Images Images CAROTID DOPPLER SONOGRAM. HISTORY: Syncope, fall, hypertension, dizziness. TECHNIQUE: Araujo scale and color Doppler sonographic evaluation of the neck with spectral waveform analysis was performed and static images are submitted for review. FINDINGS: RIGHT: The peak systolic velocity within the common carotid artery is 98 cm/sec. The peak systolic velocity within the internal carotid artery is 119 cm/sec and the end diastolic velocity within the internal carotid artery is 27 cm/sec. The ICA/CCA ratio is 1.09. Grayscale images demonstrate no grayscale stenosis. LEFT: The peak systolic velocity within the common carotid artery is 100 cm/sec. The peak systolic velocity within the internal carotid artery is 89 cm/sec and the end diastolic velocity within the internal carotid artery is 24 cm/sec. The ICA/CCA ratio is 0.85. Grayscale images demonstrate no grayscale stenosis. There is antegrade flow within both vertebral arteries. IMPRESSION: 1. No evidence of hemodynamically significant stenosis. CT LUMBAR SPINE WO Date: 01/05/2021 12:22 PM Indication: fall, pain, recent lumbar surgery Comparison: MRI 08/14/2020. Technique: Helical CT images of the lumbar spine were obtained without contrast. Coronal and sagittal reformatted images were also performed. One or more of the following dose reduction techniques were utilized: Automated exposure control (AEC), Adjustment of mA and/or kV according to patient size, Use of iterative reconstruction technique such as ASiR, CT scan done according to ALARA and image gently/image wisely. Findings: Postsurgical changes of posterior decompression and posterior instrumentation at L5-S1 with interbody spacer. Interspinous process instrumentation at L3-4. The lumbar spine is normally aligned. No acute fracture. Chronic T12 compression deformity with changes of vertebral augmentation. Mild chronic height loss at L1 with superior endplate Schmorl's node. No aggressive lytic or blastic osseous lesion. Mild to moderate multilevel degenerative disc space height loss. Multilevel mild spinal canal stenosis secondary to multilevel disc bulging and facet arthrosis. Multilevel moderate neuroforaminal narrowing. Multilevel mild and moderate facet arthrosis. No soft tissue abnormality within the visualized abdomen or pelvis. The visualized abdominal aorta is normal caliber. Mild aortic atherosclerotic di sease. IMPRESSION: No acute osseous abnormality of the lumbar spine. CT HEAD AND C-SPINE WO Clinical indications: Reason: fall, pain, aspirin use NONCONTRAST HEAD CT Technique: Noncontrast axial cross sectional scanning of the head was performed. PQRS compliance Statement One or more of the following individualized dose reduction techniques were utilized for this study: 1. Automated exposure control 2. Adjustment of the mA and/or kV according to patient size 3. Use of iterative reconstruction technique Findings: No acute intracranial hemorrhage or midline shift or mass-effect or hydrocephalus or extra-axial fluid collection is seen. No focal hypodense area or sulci effacement is seen to indicate an acute infarct or edema radiographically. No skull fracture or pneumocephalus is seen. No opacification of the mastoid sinuses or the middle ear cavities is seen. There is complete opacification of the right maxillary sinus. IMPRESSION: No acute intracranial abnormality is seen. Complete opacification of the right maxillary sinus. CERVICAL SPINE CT WITHOUT CONTRAST TECHNIQUE: Noncontrast helical CT scanning of the cervical spine was performed. Multiplanar 2-D reconstructions were generated. FINDINGS: No acute fracture or discitis or lytic process or prevertebral soft tissue swelling is evident. There is moderate degenerative disc space narrowing and endplate spurring at C6-7. No perching of facet joints is seen. Spinous processes are intact. IMPRESSION: No acute fracture. Assessment/Plan Assessment/Plan Impression: The history from the patient and her is that she fell on an uneven sidewalk while using a walker a couple weeks after lumbar spine surgery. All imaging studies have been negative. She wants to go home. There is no evidence that she had a seizure, stroke, significant head injury, or even syncope. Recommendations: Okay for discharge without further neurological studies Physical therapy has already seen her and cleared her, I see no need for the physiatry consult and have canceled it. Follow-up with her spine surgeon who will determine when to start physical therapy. Thank you for letting me help with the patient's care. ARDEN HURT MD Jan 06, 2021 14:29
--- NOTE | 2021-01-06 15:00 | NUR ---
Discharge Note: JOSE CHARLES J[facility] Discharge instructions and discharge home medications reviewed with Patient and a copy given. All questions have been answered and understanding verbalized. The following instructions and handouts were given: ferrous sulfate, syncope Patient discharged to home with self care via wheelchair. Patient notified of loop recorder placement scheduled for January 16 at 1045 in [address] doctor's building.
[2021-01-06] MEDS ORDERED: FERROUS SULFATE 325 MG TABLET. PO SCH (17:00)
--- NOTE | 2021-01-06 18:40 | CARD ---
MR#: [id number] Date of Study: 01/06/2021 Ordering Physician: MARY BLANCA, Referring Physician: MARY BLANCA, Tech: Sheela Adler [facility] APPROVED REPORT EXAM: Two-dimensional and M-mode echocardiogram with Doppler and color Doppler. Other Information Quality : AverageHR: 73bpm Rhythm : NSR INDICATION Dyspnea RISK FACTORS Hypertension Obesity Hyperlipidemia 2D DIMENSIONS RVDd2.4 (2.9-3.5cm)Left Atrium(2D)3.0 (1.6-4.0cm) IVSd1.4 (0.7-1.1cm)Aortic Root(2D)2.9 (2.0-3.7cm) LVDd3.8 (3.9-5.9cm)LVOT Diameter2.0 (1.8-2.4cm) PWd1.4 (0.7-1.1cm)LVDs2.2 (2.5-4.0cm) FS (%) 41.7 %SV46.4 ml LVEF(%)73.4 (>50%) Aortic Valve AoV Peak Donnell.153.9cm/sAoV VTI30.0cm AO Peak GR.9.5mmHgLVOT Peak Donnell.113.2cm/s AO Mean GR.5mmHgAVA (VMAX)2.20cm2 Mitral Valve MV E Yawmpyma38.2cm/sMV DECEL UARM032pa MV A Vkjqrezp643.6cm/sE/A Ratio0.7 Pulmonary Valve PV Peak Ltikfgco220.0cm/s Tricuspid Valve TR P. Jjsimkud864ak/sTR Peak Gr.21mmHg LEFT VENTRICLE The left ventricle is normal size. There is mild to moderate concentric left ventricular hypertrophy. The left ventricular systolic function is normal and the ejection fraction is within normal range. E stimated ejection fraciton 60-65%. There is normal LV segmental wall motion. Transmitral Doppler flow pattern is Grade I-abnormal relaxation pattern. RIGHT VENTRICLE The right ventricle is normal size. There is normal right ventricular wall thickness. The right ventr icular systolic function is normal. ATRIA The left atrium size is normal. The right atrium size is normal. The interatrial septum is intact wit h no evidence for an atrial septal defect or patent foramen ovale as noted on 2-D or Doppler imaging. AORTIC VALVE The aortic valve is normal in structure and function. Doppler and Color Flow revealed no significant aortic regurgitation. There is no significant aortic valvular stenosis. MITRAL VALVE The mitral valve is normal in structure and function. There is no evidence of mitral valve prolapse. There is no mitral valve stenosis. TRICUSPID VALVE The tricuspid valve is normal in structure and function. Doppler and Color Flow revealed trace tricus pid regurgitation. Estimated PAP 25 mmHg. There is no tricuspid valve stenosis. PULMONIC VALVE Doppler and Color Flow revealed trace pulmonic valvular regurgitation. There is no pulmonic valvular stenosis. GREAT VESSELS The aortic root is normal in size. The ascending aorta is normal in size. The IVC is normal in size a nd collapses >50% with inspiration. PERICARDIAL EFFUSION There is no evidence of significant pericardial effusion. Critical Notification Critical Value: No <Conclusion> The left ventricular systolic function is normal and the ejection fraction is within normal range. E stimated ejection fraciton 60-65%. There is normal LV segmental wall motion. There is mild to moderate concentric left ventricular hypertrophy. Signed by : Maynor Salinas, Electronically Approved : 01/06/2021 18:40:34
[2021-01-07 05:47] LABS: HEMOGLOBIN A1C 7.2 % (4.8-5.6)
[2021-01-07] MEDS ORDERED: ASPIRIN CHEWABLE 81 MG TABLET. PO SCH (09:00)
[2021-01-12] MEDS ORDERED: [UNRECOGNIZED DRUG - OTHER] PO SCH (09:00)
[2021-01-12] MEDS ORDERED: VITAMIN D3 PO SCH (09:00)
[2021-01-12] MEDS ORDERED: ALENDRONATE SODIUM PO SCH (09:00)
== END 2021-01-06 15:00 | disposition home or self-care (01) ==
LOC: ER 11:16 → 6 SOUTH 14:20
PROVIDERS: ADMIT Family Medicine; ATTEND Family Medicine
DX: R55 Syncope and collapse (principal); Z20.822 Contact with and (suspected) exposure to COVID-19; R42 Dizziness and giddiness; K21.9 Gastro-esophageal reflux disease without esophagitis; E03.9 Hypothyroidism, unspecified; F41.9 Anxiety disorder, unspecified; I25.2 Old myocardial infarction; I10 Essential (primary) hypertension; I11.0 Hypertensive heart disease with heart failure; I50.9 Heart failure, unspecified; F32.9 Major depressive disorder, single episode, unspecified; E78.5 Hyperlipidemia, unspecified; J44.9 Chronic obstructive pulmonary disease, unspecified; J96.01 Acute respiratory failure with hypoxia; M06.9 Rheumatoid arthritis, unspecified; M41.9 Scoliosis, unspecified; M43.17 Spondylolisthesis, lumbosacral region; M46.02 Spinal enthesopathy, cervical region; D50.9 Iron deficiency anemia, unspecified; M54.16 Radiculopathy, lumbar region; R29.6 Repeated falls; M19.011 Primary osteoarthritis, right shoulder; I25.10 Atherosclerotic heart disease of native coronary artery without angina pectoris; E11.51 Type 2 diabetes mellitus with diabetic peripheral angiopathy without gangrene; W18.30XA Fall on same level, unspecified, initial encounter; Y93.01 Activity, walking, marching and hiking; Y92.89 Other specified places as the place of occurrence of the external cause; Y99.8 Other external cause status; Z79.4 Long term (current) use of insulin; Z79.51 Long term (current) use of inhaled steroids; Z79.82 Long term (current) use of aspirin; Z79.899 Other long term (current) drug therapy; Z82.3 Family history of stroke; Z82.49 Family history of ischemic heart disease and other diseases of the circulatory system; Z83.3 Family history of diabetes mellitus; Z85.828 Personal history of other malignant neoplasm of skin; Z90.49 Acquired absence of other specified parts of digestive tract; Z90.710 Acquired absence of both cervix and uterus; Z96.611 Presence of right artificial shoulder joint; Z96.652 Presence of left artificial knee joint; Z98.890 Other specified postprocedural states
CPT/HCPCS: 36415; 70450; 71045; 72125; 72131; 73030; 80048; 80053; 81001; 82962; 83036; 83540; 83550; 83880; 84484; 85025; 85379; 87077; 87086; 87186; 87426; 93005; 93306; 93880; 94640; 94760; 96361; 96372; 96374; 97161; 99285; G0378; J1650; J1815; J3010; J7030; J7613; J7626; U0003; U0005; G0379

== ENCOUNTER → 2021-01-19 | Outpatient (CLI) | payer MEDICARE, BC ==
[2021-01-06 11:00] VITALS: BP 142/63
[~2021-01-19] MED LIST changes: +FERR325T72 PO
--- NOTE | 2021-01-19 15:21 | CARD ---
MR#: [id number] Date of Study: 01/19/2021 Ordering Physician: JESUS PAYTON, Referring Physician: JESUS PAYTON, Tech: APPROVED REPORT Procedure: Implantable loop recorder Reason for procedure: Recurrent falls and syncope Procedure details: After appropriate informed consent the left chest was prepped and draped in usual sterile fashion. U nder 1% lidocaine local anesthesia along the left parasternal space and a 45 degree angle a 0.5 inch incision was made and a subcutaneous tunnel was created. Next, a [employer] bio monitor 3 implantable loop recorder with serial number [id number] was placed with the delivery till. No acute complications are noted. The incision was then closed with one 2-0 Vicryl stitch and Steri-Strips. No acute comp lications are noted. <Conclusion> 1. Successful insertion of a [employer] loop recorder for recurrent falls and syncope. Signed by : Jesus Payton, Electronically Approved : 01/19/2021 15:20:48
== END | disposition home or self-care (01) ==
LOC: LINQ 10:30
PROVIDERS: ATTEND Internal Medicine Cardiovascular Disease
DX: R55 Syncope and collapse (principal); R29.6 Repeated falls; I11.0 Hypertensive heart disease with heart failure; E78.00 Pure hypercholesterolemia, unspecified; M19.90 Unspecified osteoarthritis, unspecified site; J44.9 Chronic obstructive pulmonary disease, unspecified; E66.9 Obesity, unspecified; E11.9 Type 2 diabetes mellitus without complications; E03.9 Hypothyroidism, unspecified; F32.9 Major depressive disorder, single episode, unspecified; Z87.440 Personal history of urinary (tract) infections; Z98.51 Tubal ligation status; Z90.49 Acquired absence of other specified parts of digestive tract; Z90.710 Acquired absence of both cervix and uterus; Z98.890 Other specified postprocedural states; Z79.82 Long term (current) use of aspirin; Z79.84 Long term (current) use of oral hypoglycemic drugs; Z79.899 Other long term (current) drug therapy; Z85.828 Personal history of other malignant neoplasm of skin; Z88.8 Allergy status to other drugs, medicaments and biological substances; Z88.5 Allergy status to narcotic agent
CPT/HCPCS: 33285; C1764

== ENCOUNTER 2021-08-02 17:50 | Inpatient (IN) | payer MEDICARE, BC ==
[~2021-08-02] VITALS: Ht 153.7 cm; Wt 79.6 kg
[~2021-08-02 17:50] MED LIST changes: -OMEP20TA8 PO; +OMEP20TA91 PO
--- NOTE | 2021-08-02 18:10 | NUR ---
Patient to room 201 per stretcher transported by EMS. Patient transferred to bed with total assist. Patient was here waiting for patient. Patient alert and oriented, a little drowsy. Pt fsbs at [facility] prior to dinner was 140 per report. Patient does report that she had supper at [facility]. Call light within easy reach, rails up x2.
[2021-08-02 18:18] VITALS: BP 132/62
--- NOTE | 2021-08-02 19:07 | PDOC1 ---
History and Physical Date of Admission Date of Admission DATE: 08/02/21 TIME: 18:55 Identification/Chief Complaint Chief Complaint Lumbar compression fracture Source Source: Caregiver, Patient History of Present Illness History of Present Illness Patient is a 71-year-old female with past medical history CHF, DM2, hypothyroidism, who presents to the ED as a transfer from [facility] for acute lumbar compression fracture. She had a fall roughly 1 week ago on 07/27. She reports constant pain, 10/10. Her pain has been improved intermittently with steroid injections from her PCP, Dr. Jaramillo. Today Dr. Jaramillo ordered a CT of her lumbar back that showed acute compression deformity of the L4 vertebral body. She has been excepted as a transfer for lumbar laminectomy. Past Medical History Cardiovascular: CAD, HTN, Hyperlipidemia, Valve insufficiency, Other Pulmonary: Asthma, COPD, Pneumonia, Other CENTRAL NERVOUS SYSTEM: Carpal Tunnel Syndrome GI: GERD, Other Heme/Onc: Anemia NOS, Other Psych: Depression Musculoskeletal: Osteoarthritis Rheumatologic: Rheumatoid arthritis Renal/: UTI Endocrine: Diabetes, Hypothyroidism Past Surgical History Past Surgical History: Appendectomy, Cholecystectomy, Cataract Removal, Tubal Ligation, Tonsillectomy, Hysterectomy, Other Family History Family History: Stroke Social History Smoke: No ALCOHOL: none Drugs: None Current Medications Current Medications Active Scripts Active Feosol (Ferrous Sulfate) 325 Mg Tablet 325 Mg PO BID 30 Days Hydrocodone-Apap 7.5-325 (Hydrocodone Bit/Acetaminophen) 1 Tab Tablet 1-2 Tab PO PRN Q4HRS PRN 1-2 tablets by mouth every 4 hours as needed for pain Reported Calcium 600 + Vit D Caplet (Calcium Carbonate/Vitamin D3) 1 Each Tablet 2 Tab PO HS 30 Days Fish Oil 1,000 mg Softgel ([place]-3/Dha/Epa/Fish Oil) 1,000 Mg Capsule 1,000 Mg PO HS Victoza 3-Darío (Liraglutide) 0.6 Mg/0.1 Ml Pen.injctr 1.8 Mg SQ DAILY Omeprazole 20 Mg Tablet.dr 1 Tab PO DAILY Advair 250-50 Diskus (Fluticasone/Salmeterol) 1 Each Disk.w.dev 1 Puff IH BID Aspirin 81 Mg Tab.chew 1 Tab PO QODAY Montelukast Sodium Tablet (Montelukast Sodium) 10 Mg Tablet 10 Mg PO DAILY Novolog Flexpen (Insulin Aspart) 100 Unit/1 Ml Insuln.pen 10 Unit SQ QID Fish Oil 1,000 Mg Capsule ([place]-3 Fatty Acids/Fish Oil) 1 Each Capsule 1 Each PO DAILY Levemir (Insulin Detemir) 100 Unit/1 Ml Vial 30 Unit SQ HS Amlodipine Besylate 2.5 Mg Tablet 2.5 Mg PO HS Nitrostat (Nitroglycerin) 0.4 Mg Tab.subl 0.4 Mg SL PRN Q5MIN PRN Not given. Resume at home as needed for chest pain. Fosamax Plus D 70 Mg-2,800 Iu (Alendronate Sodium/Vitamin D3) 1 Each Tablet 1 Each PO WEEKLY Escitalopram Oxalate 10 Mg Tablet 10 Mg PO HS Atorvastatin Calcium 20 Mg Tablet 20 Mg PO HS Multi-Vitamin Daily (Multivitamin) 1 Each Tablet 1 Each PO DAILY Loratadine 10 Mg Tab.rapdis 10 Mg PO DAILY Isosorbide Mononitrate Er (Isosorbide Mononitrate) 120 Mg Tab.er.24h 120 Mg PO DAILY Levothyroxine Sodium 50 Mcg Tablet 50 Mcg PO DAILYAC Furosemide 40 Mg Tablet 40 Mg PO BID Metformin Hcl 1,000 Mg Tablet 1,000 Mg PO BID MDD Carvedilol (Carvedilol) 3.125 Mg Tablet 3.125 Mg PO BID K-Tab ER (Potassium Chloride) 20 Meq Tablet.er 20 Meq PO DAILY Allergies Allergies: Coded Allergies: niacin (Verified Allergy, Intermediate, Rash, 01/05/21) silver (Verified Allergy, Intermediate, RASH/BLISTERS; AQUACEL AG DRESSING, 01/05/21) codeine (Verified Adverse Reaction, Intermediate, Nausea and Vomiting, 01/05/21) nifedipine (Verified Adverse Reaction, Intermediate, Nausea and Vomiting, 01/05/21) oxycodone (Verified Adverse Reaction, Intermediate, HEADACHE, 01/05/21) hallucinates propoxyphene (Verified Adverse Reaction, Intermediate, passed out, 01/05/21) ROS Review of System GENERAL: Lower back pain. No history of weight change, weakness or fevers. SKIN: No bruising, hair changes or rashes. EYES: No blurred, double or loss of vision. NOSE AND THROAT: No history of nosebleeds, hoarseness or sore throat. HEART: Denies chest pain, denies palpitations. LUNGS: Denies cough, hemoptysis, wheezing or shortness of breath. GASTROINTESTINAL: Denies nausea, vomiting, abdominal pain. GENITOURINARY: Denies dysuria, frequency, urgency, hematuria. NEUROLOGIC: Reports some numbness to left lower extremity. Denies history of numbness, tingling, tremor or weakness. PSYCHIATRIC: Denies anxiety, denies depression. ENDOCRINE: No history of heat or cold intolerance, polyuria or polydipsia. EXTREMITIES: Denies joint pain, pain on walking or stiffness. Physical Exam Physical Exam General: Alert, Oriented X3, Cooperative, No acute distress HEENT: PERRLA, EOMI Lungs: Clear to auscultation, Normal air movement Heart: RRR, no murmurs Cardiovascular: S1, S2 Abdomen: Normal bowel sounds, Soft, No tenderness Extremities: No clubbing, No cyanosis Skin: Postsurgical scars to bilateral knees. No rashes, No significant lesion Neuro: Normal speech, Normal tone, Sensation intact Psych/Mental Status: Mental status NL, Mood NL Vitals Vitals Vital Signs Date Time Temp Pulse Resp B/P (MAP) Pulse Ox O2 Delivery O2 Flow Rate FiO2 08/02/21 18:18 97.9 64 18 132/62 (85) 96 Nasal Cannula 2.0 97.9 Images Images PATIENT: JOSE CHARLES ACCOUNT: [id number] : 1950 LOCATION: [facility] AGE: 71 SEX: F EXAM STATUS: ADM IN ORD. PHYSICIAN: JUAN ANTONIO CARABALLO MD REASON: severe pain PROCEDURE: CT LUMBAR SPINE WO CONTRAST CT LUMBAR SPINE WO History: Severe pain Technique: Noncontrast CT was performed of the lumbar spine. Multiplanar reconstructions were performed. Comparison: CT chest abdomen and pelvis 03/15/2021 Findings: There are 5 nonrib-bearing lumbar type vertebral bodies. Posterior spinal fixation at L5-S1 with laminectomy and intervertebral disc spacer. Bilateral L5 and S1 pedicle screws appear well-positioned without evidence of loosening. There is a new compression deformity of the L4 vertebral body with mild ret ropulsion of the inferior posterior cortex by approximately 3 mm. Approximately 20 percent L4 vertebral body height loss. Partially visualized compression deformity of the T12 vertebral body with kyphoplasty changes appears similar. Mild anterior height loss of L1 appears unchanged. T12-L1: Schmorl's node at L1 superior endplate. No significant spinal canal or neural foraminal stenosis. L1-L2: No significant disc or facet disease. L2-L3: Mild disc bulge and minimal facet hypertrophy. No significant canal or foraminal stenosis. L3-L4: Mild disc bulge and mild facet hypertrophy. Thecal sac is narrowed to approximately 8 mm and there is mild bilateral foraminal stenosis. L4-L5: Endplate osteophytes and facet hypertrophy cause moderate bilateral neural foraminal stenosis. The thecal space is obscured by metallic artifact from posterior spinal fixation, appears adequately patent. L5-S1: Discectomy and laminectomy at this level. Spinal canal and neural foramina remain adequately patent. Impression: 1. Acute compression deformity of the L4 vertebral body with approximately 20 percent height loss. 2. Posterior cortex retropulsion and endplate osteophytes cause moderate bilateral neural foraminal stenosis and narrowing of the spinal canal to approximately 8 mm. 3. Stable postsurgical changes from posterior fixation and laminectomy at L5- S1. VTE Prophylaxis Ordered VTE Prophylaxis Devices: No VTE Pharmacological Prophylaxi: Yes Assessment/Plan Assessment/Plan Acute L4 compression fracture DM2 CHF HTN hypothyroidism Plan: Will place consultation to IR Will consult PM&R Pain management Basal/prandial insulin Resume home medications FEN - ADA diet PPX - Heparin FULL CODE/surrogate decision-maker is her (Salvador Charles) Dispo - inpatient for above Justifications for Admission Other Justification VIGNESH BOWEN MD Aug 02, 2021 19:07
[2021-08-02] MEDS ORDERED: IV DEXTROSE 5% 250 ML BAG. IV PRN (19:15)
[2021-08-02] MEDS ORDERED: DEXTROSE 50% 25 GM / 50ML DISP.SYRIN. IV PRN (19:15)
[2021-08-02] MEDS ORDERED: NITROGLYCERIN SUBLINGUAL 0.4 MG BOTTLE OF 25. SL PRN (19:15)
[2021-08-02 19:30] VITALS: BP 148/66
[2021-08-02] MEDS ORDERED: ACETAMINOPHEN 325 MG TABLET. PO PRN (19:30)
[2021-08-02] MEDS ORDERED: CALCIUM CARBONATE 500 MG TAB.CHEW PO PRN (19:30)
[2021-08-02] MEDS ORDERED: MAG HYDROX/ALUMINUM HYD/SIMETH 30 ML ORAL.SUSP PO PRN (19:30)
[2021-08-02] MEDS ORDERED: MAGNESIUM HYDROXIDE 2,400 MG/30 ML ORAL.SUSP. PO PRN (19:30)
[2021-08-02] MEDS ORDERED: ZOLPIDEM 5 MG TABLET. PO PRN (19:30)
[2021-08-02] MEDS ORDERED: ONDANSETRON PF 4 MG/2 ML VIAL. IVP PRN (19:30)
[2021-08-02] MEDS: HYDROcodone/APAP 5/325MG 1 TAB TABLET PO PRN (20:26)
[2021-08-02] MEDS: ATORVASTATIN CALCIUM 20 MG TABLET PO SCH (20:26)
[2021-08-02] MEDS: FUROSEMIDE 40 MG TABLET. PO SCH (20:27)
[2021-08-02] MEDS: CITALOPRAM 20 MG TABLET. PO SCH (20:28)
[2021-08-02] MEDS: CARVEDILOL 3.125 MG TABLET. PO SCH (20:28)
[2021-08-02] MEDS: CALCIUM CARB/VIT D3 500/200 TABLET. PO SCH (20:30)
[2021-08-02] MEDS: FERROUS SULFATE 325 MG TABLET. PO SCH (20:30)
[2021-08-02] MEDS: INSULIN LISPRO 300 UNITS/3 ML VIAL. SQ SCH (21:00)
[2021-08-02] MEDS: HEPARIN for SUB-Q USE 5,000 UNIT/ML VIAL. SQ SCH (22:00)
[2021-08-02] MEDS: INSULIN GLARGINE SYRINGE. SQ SCH (22:30)
[2021-08-02] MEDS: MORPHINE SULFATE 2 MG/ML INJ. IVP PRN (23:20)
[2021-08-02 23:49] VITALS: BP 144/70
[2021-08-03 03:00] VITALS: BP 171/75
[2021-08-03] MEDS: HYDROcodone/APAP 5/325MG 1 TAB TABLET PO PRN ×3 (04:36→19:39)
[2021-08-03] MEDS: HEPARIN for SUB-Q USE 5,000 UNIT/ML VIAL. SQ SCH ×3 (06:00→19:19)
[2021-08-03 07:00] VITALS: BP 133/53
[2021-08-03 07:54] LABS: BASO # 0.1 x10^3/uL (0.0-0.2); BASO % 1 % (0-3); EOS # 0.2 x10^3/uL (0.0-0.7); EOS % 3 % (0-3); HEMATOCRIT 36.3 % (36.0-47.0); HEMOGLOBIN 11.6 g/dL (12.0-15.5); LYMPH % 34 % (24-48); MEAN CORPUSCULAR HEMOGLOBIN 27 pg (25-35); MEAN CORPUSCULAR HGB CONC 32 g/dL (31-37); MEAN CORPUSCULAR VOLUME 84 fL (79-100); MONO # 0.6 x10^3/uL (0.0-1.1); MONO % 7 % (0-9); NEUT % 56 % (31-73); PLATELET COUNT 206 x10^3/uL (140-400); RED BLOOD COUNT 4.35 x10^6/uL (3.50-5.40); RED CELL DISTRIBUTION WIDTH 15.6 % (11.5-14.5)
[2021-08-03] MEDS: INSULIN LISPRO 300 UNITS/3 ML VIAL. SQ SCH ×7 (08:00→21:00)
[2021-08-03 08:10] LABS: ALBUMIN 3.1 g/dL (3.4-5.0); ALBUMIN/GLOBULIN RATIO 0.8 (1.0-1.7); CALCIUM 8.8 mg/dL (8.5-10.1); CREATININE 0.7 mg/dL (0.6-1.0); GFR 82.5; POTASSIUM 4.1 mmol/L (3.5-5.1); TOTAL BILIRUBIN 0.3 mg/dL (0.2-1.0); TOTAL PROTEIN 7.1 g/dL (6.4-8.2)
[2021-08-03] MEDS: MORPHINE SULFATE 2 MG/ML INJ. IVP PRN (08:18)
[2021-08-03 08:32] LABS: PROTHROMBIN TIME PATIENT 12.2 SEC (11.7-14.0)
--- NOTE | 2021-08-03 08:47 | PDOC ---
Provider Note Date of Service: DATE: 08/03/21 TIME: 08:43 Provider Note IR NOTE L4 compression/burst fracture with some bony retropulsion resulting in at least moderate canal stenosis, and bilateral neuroforaminal stenosis by CT. Had fall onto buttocks about 1 week ago. She has had severe back pain since then but also new left sided leg numbness, and tingling. She cannot participate in ALD's. Will order MRI Given morphology and new LLE symptoms will ask Neurosurgery to see her. If they feel kyphoplasty is best option for her , will be happy to help. Will follow along. Justifications for Admission Other Justification NICKOLAS GIBBONS MD Aug 03, 2021 08:47
[2021-08-03] MEDS: PANTOPRAZOLE 40 MG TABLET.DR. PO SCH (09:13)
[2021-08-03] MEDS: CARVEDILOL 3.125 MG TABLET. PO SCH ×2 (09:13→17:15)
[2021-08-03] MEDS: FERROUS SULFATE 325 MG TABLET. PO SCH ×2 (09:14→22:21)
[2021-08-03] MEDS: POTASSIUM CHLORIDE 10 MEQ TABLET.ER. PO SCH (09:14)
[2021-08-03] MEDS: MONTELUKAST SODIUM 10 MG TABLET. PO SCH (09:14)
[2021-08-03] MEDS: FUROSEMIDE 40 MG TABLET. PO SCH ×2 (09:14→17:15)
[2021-08-03] MEDS: LEVOTHYROXINE 50 MCG TABLET PO SCH (09:14)
[2021-08-03] MEDS ORDERED: BISACODYL 5 MG TABLET.DR. PO PRN (09:45)
[2021-08-03] MEDS ORDERED: DOCUSATE SODIUM 283 MG/5 ML ENEMA. PR PRN (09:45)
--- NOTE | 2021-08-03 09:57 | PDOC ---
[employer] PROGRESS NOTE Date of Service DOS: DATE: 08/03/21 TIME: 09:50 Chief Complaint Chief Complaint Acute L4 compression fracture DM2 CHF HTN hypothyroidism History of Present Illness History of Present Illness 08/03: Patient seen and evaluated with at bedside. Per Dr. High, will order MRI and as per neurologist. Given new left lower extremity symptoms. If Dr. Velasquez feels kyphoplasty is in her best interest, then I believe he will proceed tomorrow. Patient still complains of uncontrolled pain. She did receive morphine in [facility] ER and is requesting for acute pain. Will increase morphine dose. Discussed with RN. Vitals/I&O Vitals/I&O: Vital Signs Date Time Temp Pulse Resp B/P (MAP) Pulse Ox O2 Delivery O2 Flow Rate FiO2 08/03/21 09:13 63 133/53 08/03/21 08:18 20 94 Nasal Cannula 2.0 08/03/21 07:00 97.4 97.4 I & O 08/02/21 08/02/21 08/03/21 15:00 23:00 07:00 Intake Total 300 ml Output Total 200 ml Balance 100 ml Physical Exam General: Alert, Cooperative, mild distress Heart: Regular rate Lungs: Clear Abdomen: Soft, No masses Extremities: No cyanosis Skin: No rashes, No breakdown Labs Labs: Laboratory Tests Test 08/02/21 22:17 08/03/21 07:24 Glucose (Fingerstick) 161 mg/dL (70-99) White Blood Count 9.0 x10^3/uL (4.0-11.0) Red Blood Count 4.35 x10^6/uL (3.50-5.40) Hemoglobin 11.6 g/dL (12.0-15.5) Hematocrit 36.3 % (36.0-47.0) Mean Corpuscular Volume 84 fL (79-100) Mean Corpuscular Hemoglobin 27 pg (25-35) Mean Corpuscular Hemoglobin Concent 32 g/dL (31-37) Red Cell Distribution Width 15.6 % (11.5-14.5) Platelet Count 206 x10^3/uL (140-400) Neutrophils (%) (Auto) 56 % (31-73) Lymphocytes (%) (Auto) 34 % (24-48) Monocytes (%) (Auto) 7 % (0-9) Eosinophils (%) (Auto) 3 % (0-3) Basophils (%) (Auto) 1 % (0-3) Neutrophils # (Auto) 5.0 x10^3/uL (1.8-7.7) Lymphocytes # (Auto) 3.0 x10^3/uL (1.0-4.8) Monocytes # (Auto) 0.6 x10^3/uL (0.0-1.1) Eosinophils # (Auto) 0.2 x10^3/uL (0.0-0.7) Basophils # (Auto) 0.1 x10^3/uL (0.0-0.2) Prothrombin Time 12.2 SEC (11.7-14.0) Prothromb Time International Ratio 0.9 (0.8-1.1) Activated Partial Thromboplast Time 27 SEC (24-38) Sodium Level 139 mmol/L (136-145) Potassium Level 4.1 mmol/L (3.5-5.1) Chloride Level 102 mmol/L (98-107) Carbon Dioxide Level 30 mmol/L (21-32) Anion Gap 7 (6-14) Blood Urea Nitrogen 18 mg/dL (7-20) Creatinine 0.7 mg/dL (0.6-1.0) Estimated GFR (Cockcroft-Gault) 82.5 BUN/Creatinine Ratio 26 (6-20) Glucose Level 134 mg/dL (70-99) Calcium Level 8.8 mg/dL (8.5-10.1) Total Bilirubin 0.3 mg/dL (0.2-1.0) Aspartate Amino Transf (AST/SGOT) 6 U/L (15-37) Alanine Aminotransferase (ALT/SGPT) 17 U/L (14-59) Alkaline Phosphatase 66 U/L (46-116) Total Protein 7.1 g/dL (6.4-8.2) Albumin 3.1 g/dL (3.4-5.0) Albumin/Globulin Ratio 0.8 (1.0-1.7) Comment Review of Relevant I have reviewed the following items maria r (where applicable) has been applied. Medications: Current Medications Medications (Trade) Dose Ordered Sig/Petey Route PRN Reason Start Time Stop Time Status Last Admin Dose Admin Insulin Glargine (Lantus Syringe) 30 unit BID SQ 08/02/21 21:00 08/02/21 22:30 Atorvastatin Calcium (Lipitor) 20 mg HS PO 08/02/21 21:00 08/02/21 20:26 Carvedilol (Coreg) 3.125 mg BID PO 08/02/21 21:00 08/03/21 09:13 Ferrous Sulfate (Feosol) 325 mg BID PO 08/02/21 21:00 08/03/21 09:14 Furosemide (Lasix) 40 mg BID94 PO 08/02/21 21:00 08/03/21 09:14 Levothyroxine Sodium (Synthroid) 50 mcg DAILYAC PO 08/03/21 07:30 08/03/21 09:14 Montelukast Sodium (Singulair) 10 mg DAILY PO 08/03/21 09:00 08/03/21 09:14 Amlodipine Besylate (Norvasc) 2.5 mg HS PO 08/02/21 21:00 08/02/21 20:27 Calcium/Vitamin D (Oscal D 500mg/ 200uts) 2 tab DAILYWDIN PO 08/02/21 21:00 08/02/21 20:30 Citalopram Hydrobromide (CeleXA) 20 mg HS PO 08/02/21 21:00 08/02/21 20:28 Pantoprazole Sodium (Protonix) 40 mg DAILYAC PO 08/03/21 07:30 08/03/21 09:13 Potassium Chloride (Klor-Con) 20 meq DAILYWBKFT PO 08/03/21 08:00 08/03/21 09:14 Acetaminophen/ Hydrocodone Bitart (Lortab 5/325) 2 tab PRN Q4HRS PRN PO MODERATE PAIN, SEVERE PAIN 08/02/21 19:30 08/03/21 04:36 Morphine Sulfate (Morphine Sulfate) 2 mg PRN Q2HR PRN IVP SEVERE PAIN 7-10 08/02/21 22:45 08/03/21 08:18 Justifications for Admission Other Justification VIGNESH BOWEN MD Aug 03, 2021 09:57
[2021-08-03] MEDS: MORPHINE SULFATE 4 MG/ML INJ. IV PRN ×2 (10:16→22:30)
[2021-08-03] MEDS: BISACODYL 5 MG TABLET.DR. PO SCH (10:17)
[2021-08-03] MEDS: SENNOSIDES/DOCUSATE 8.6/50MG TABLET. PO SCH ×2 (10:17→22:21)
[2021-08-03] MEDS: tiZANidine 4 MG TABLET. PO SCH ×3 (10:17→22:21)
--- NOTE | 2021-08-03 10:41 | CONS ---
DATE OF CONSULTATION: 08/03/2021 ATTENDING PHYSICIAN: Dr. Freeman. REASON FOR CONSULTATION: The patient was seen at the request of Dr. Freeman for rehab evaluation. HISTORY OF PRESENT ILLNESS: This is a 71-year-old female known to me in the past. The patient with known diabetes mellitus, congestive heart failure, hypothyroidism, chronic lower back pain, status post lumbar spine surgery in the past and also bilateral total knee arthroplasty and previous lumbar kyphoplasty. The patient was admitted as per transfer from [facility] with severe lower back pain started after she fell and landed on her buttocks on 07/27/2021. She has seen her family physician, Dr. Woodard, gave her steroid injection with some temporary help. The pain continued. He obtain CT scan of the lumbar spine, which revealed acute L4 vertebral body compression fracture and she was transferred for neurosurgical advice and Interventional Radiology advised. Dr. Merino saw her and ordered an MRI scan and considering kyphoplasty if Neurosurgery does not want to operate surgically. The patient prior to the present hospitalization has been independent with her mobility and self-care skills, not using an assistive devices. Her back support brace, she had stairs to climb at home. She lives with her . PAST MEDICAL HISTORY: Also includes coronary artery disease, hypertension, hyperlipidemia, wall insufficiency, asthmatic bronchitis, chronic obstructive pulmonary disease, previous pneumonia, bilateral carpal tunnel surgery, gastroesophageal reflux disease, anemia, depression, osteoarthritis, status post bilateral total knee arthroplasty, rheumatoid arthritis, urinary tract infection, status post cataract surgery, hysterectomy, tonsillectomy, tubal ligation. FAMILY HISTORY: Cerebrovascular accident. ALLERGIES: SHE IS KNOWN ALLERGIC TO CODEINE, NIACIN, NIFEDIPINE, OXYCODONE, PROPOXYPHENE, SILVER. MEDICATIONS: She used to take hydrocodone for pain in the past. Right now, it is not helping that much. The patient admits some numbness in her left lower extremities. She denies any trouble with her bladder control, but had no bowel movement for the last 1 week. PHYSICAL EXAMINATION: GENERAL: Today revealed a middle-aged female. She is alert, oriented to time, place, person and circumstance, follows commands appropriately. NEUROLOGIC: Moves all 4 extremities voluntarily where she had 4+/5 grade muscle strength. Deep tendon reflexes are decreased overall with absent knee and ankle jerks and she has slightly decreased touch perception over left leg inner aspect. Other than that, equal perception of touch and pinprick sensation bilaterally. She had tenderness to palpation over lumbar spine, adjoining paraspinal muscles, extending over to sacroiliac joint area. Straight leg raising test is negative bilaterally. She had painful range of motion of both hip joints. She requires some help with rolling from side to side. She is having significant pain with movement of her lumbar spine. She had moderate degree of lumbar paraspinal muscle spasm. She is using oxygen by nasal cannula, which she usually uses at nighttime. ASSESSMENT: Severe lower back pain from L2 vertebral body compression fracture, started on 07/27/2021 after a fall in a patient with previous degenerative disk disease and degenerative joint disease of lumbar vertebrae, status post previous lumbar spine surgery. No clinical evidence of ongoing lumbar radiculopathy, diabetes mellitus with peripheral neuropathy. The patient with known hypertension, coronary artery disease, congestive heart failure, hypothyroidism, degenerative joint disease, status post bilateral total knee arthroplasty. RECOMMENDATIONS: Await MRI scan to obtain her lumbar corset for use while up to use physical modalities to work on her constipation. Dr. Freeman, I appreciate asking me to participate in the care of this interesting patient. I will be glad to see her for followup with you on as needed basis. FRANCESCO/ANETTE LEE: FRANCESCO/akilah TID: [id number]
[2021-08-03 11:00] VITALS: BP 128/65
--- NOTE | 2021-08-03 13:23 | PDOC ---
Provider Note Date of Service: DATE: 08/03/21 TIME: 13:20 Provider Note patient seen and examined consulted for compression fracture he patient was admitted as per transfer from [facility] with severe lower back pain started after she fell and landed on her buttocks on 07/27/2021. She has seen her family physician, Dr. Woodard, gave her steroid injection with some temporary help. The pain continued. He obtain CT scan of the lumbar spine, which revealed acute L4 vertebral body compression fracture and she was transferred for neurosurgical advice and Interventional Radiology advised. Dr. High saw her and ordered an MRI scan and considering kyphoplasty. She has undergone kyphoplasty in the past. she complains of back pain and numbness in in left anterior lower leg. There are no symptoms in the right leg. reviewed imaging ok to proceed with kyphoplasty D/W RN Justifications for Admission Other Justification LUZ MARIA ABRAMS MD Aug 03, 2021 13:23
--- NOTE | 2021-08-03 13:32 | NUR ---
SW following. Discussed with RN, pt from home with , 2L (does not use oxygen at home), NPO. Plan for Kyphoplasty tomorrow. PT/OT ordered. SW will continue to follow.
--- NOTE | 2021-08-03 13:52 | RAD ---
MR LUMBAR SPINE [id number] History: Reason: Low back pain, LLE numbness and tingling. Hx fusion L4 burst/comp frac / Spl. Instru ctions: / History: Technique: Multiplanar, multi sequential MR imaging was performed of the lumbar spine. Comparison: CT lumbar spine August 02, 2021. MRI August 14, 2021 Findings: Acute L4 vertebral body fracture involving the anterior and posterior cortex. Mild retropulsion contr ibuting to moderate canal narrowing. Chronic T12 and L1 compression fractures with kyphoplasty at T12. Posterior stabilization and interbody fusion L5-S1. Conus terminates at the normal location. No evidence of nerve root clumping. L1-L2: No canal or neuroforaminal narrowing. L2-L3: Small disc bulge. Mild facet arthropathy. No canal narrowing. Mild neuroforaminal narrowing. L3-L4: Small broad-based disc bulge. Moderate facet arthropathy. Mild canal narrowing. Ligament of f lavum thickening. Subarticular recess narrowing. Mild bilateral neuroforaminal narrowing. L4-L5: Broad-based disc bulge. Retropulsion L4 vertebral body. Moderate to severe canal narrowing. S evere subarticular recess narrowing. Severe left and moderate right neuroforaminal narrowing. L5-S1: Intervertebral fusion. No canal narrowing. Moderate neuroforaminal narrowing. Impression: 1. Acute L4 two column vertebral body fracture with retropulsion. 2. Moderate to severe L4-5 canal narrowing. 3. Severe left and moderate right L4-5 neuroforaminal narrowing. 4. Additional lumbar spondylosis, similar compared to prior. 5. Posterior stabilization and interbody fusion L5-S1, unchanged. Electronically signed by: Dmitriy Greenberg DO (08/03/2021 1:50 PM) [id number]
[2021-08-03] MEDS: LIDOCAINE (700MG/PATCH) PATCH. TD SCH (14:00)
[2021-08-03] MEDS: INSULIN GLARGINE SYRINGE. SQ SCH ×2 (14:05→22:24)
[2021-08-03 15:00] VITALS: BP 162/60
[2021-08-03] MEDS: CALCIUM CARB/VIT D3 500/200 TABLET. PO SCH (17:34)
[2021-08-03 19:00] VITALS: BP 156/44
[2021-08-03] MEDS: PATCH REMOVAL. MC SCH (21:00)
[2021-08-03] MEDS: CITALOPRAM 20 MG TABLET. PO SCH (22:21)
[2021-08-03] MEDS: ATORVASTATIN CALCIUM 20 MG TABLET PO SCH (22:21)
[2021-08-03 22:50] VITALS: BP 167/60
[2021-08-04] VITALS (16 sets, daily range): BP systolic 127–192; BP diastolic 54–79
[2021-08-04] MEDS: HEPARIN for SUB-Q USE 5,000 UNIT/ML VIAL. SQ SCH ×3 (01:24→22:21)
[2021-08-04] MEDS: MORPHINE SULFATE 4 MG/ML INJ. IV PRN ×3 (03:01→22:56)
[2021-08-04] MEDS: tiZANidine 4 MG TABLET. PO SCH ×3 (04:43→21:51)
[2021-08-04] MEDS ORDERED: LIDOCAINE WITH 8.4% SOD BICARB 3 ML DISP.SYRIN. ONE (07:47)
[2021-08-04] MEDS ORDERED: IOHEXOL 240 MG/ML 50ML VIAL. ONE (07:47)
[2021-08-04] MEDS: INSULIN LISPRO 300 UNITS/3 ML VIAL. SQ SCH ×7 (08:00→21:00)
[2021-08-04] MEDS ORDERED: MIDAZOLAM HCL/PF 2 MG/2 ML VIAL. ONE (08:38)
[2021-08-04] MEDS ORDERED: fentaNYL PF VIAL 100 MCG/2 ML VIAL ONE (08:38)
[2021-08-04] MEDS: INSULIN GLARGINE SYRINGE. SQ SCH ×2 (09:00→22:20)
[2021-08-04] MEDS ORDERED: LIDOCAINE WITH 8.4% SOD BICARB 3 ML DISP.SYRIN. IJ ONE (09:15)
[2021-08-04] MEDS ORDERED: fentaNYL PF VIAL 100 MCG/2 ML VIAL IV ONE (09:15)
[2021-08-04] MEDS ORDERED: CONTRAST GIVEN. MC PRN (09:15)
[2021-08-04] MEDS ORDERED: MIDAZOLAM HCL/PF 2 MG/2 ML VIAL. IV ONE (09:15)
[2021-08-04] MEDS ORDERED: IOHEXOL 240 MG/ML 50ML VIAL. IJ ONE (09:15)
--- NOTE | 2021-08-04 09:52 | PDOC ---
PROGRESS NOTES Date of Service DATE: 08/04/21 TIME: 09:50 Subjective Subjective She is resting supine in bed after having L4 kyphoplasty. Objective Objective Vital Signs Date Time Temp Pulse Resp B/P (MAP) Pulse Ox O2 Delivery O2 Flow Rate FiO2 08/04/21 09:28 70 16 95 Nasal Cannula 2.0 08/04/21 07:00 97.9 188/66 (106) 97.9 Intake and Output 08/04/21 07:00 Intake Total 250 ml Output Total 800 ml Balance -550 ml Intake Oral 250 ml Output Urine Total 800 ml Physical Exam Physical Exam She is resting supine in bed. Her is at bedside. Plan Plan of Care To get her up as tolerated. Comment Review of Relevant I have reviewed the following items maria r (where applicable) has been applied. Labs Laboratory Tests Test 08/02/21 22:17 08/03/21 07:24 08/03/21 13:04 08/03/21 16:52 Glucose (Fingerstick) 161 mg/dL (70-99) 150 mg/dL (70-99) 194 mg/dL (70-99) White Blood Count 9.0 x10^3/uL (4.0-11.0) Red Blood Count 4.35 x10^6/uL (3.50-5.40) Hemoglobin 11.6 g/dL (12.0-15.5) Hematocrit 36.3 % (36.0-47.0) Mean Corpuscular Volume 84 fL (79-100) Mean Corpuscular Hemoglobin 27 pg (25-35) Mean Corpuscular Hemoglobin Concent 32 g/dL (31-37) Red Cell Distribution Width 15.6 % (11.5-14.5) Platelet Count 206 x10^3/uL (140-400) Neutrophils (%) (Auto) 56 % (31-73) Lymphocytes (%) (Auto) 34 % (24-48) Monocytes (%) (Auto) 7 % (0-9) Eosinophils (%) (Auto) 3 % (0-3) Basophils (%) (Auto) 1 % (0-3) Neutrophils # (Auto) 5.0 x10^3/uL (1.8-7.7) Lymphocytes # (Auto) 3.0 x10^3/uL (1.0-4.8) Monocytes # (Auto) 0.6 x10^3/uL (0.0-1.1) Eosinophils # (Auto) 0.2 x10^3/uL (0.0-0.7) Basophils # (Auto) 0.1 x10^3/uL (0.0-0.2) Prothrombin Time 12.2 SEC (11.7-14.0) Prothromb Time International Ratio 0.9 (0.8-1.1) Activated Partial Thromboplast Time 27 SEC (24-38) Sodium Level 139 mmol/L (136-145) Potassium Level 4.1 mmol/L (3.5-5.1) Chloride Level 102 mmol/L (98-107) Carbon Dioxide Level 30 mmol/L (21-32) Anion Gap 7 (6-14) Blood Urea Nitrogen 18 mg/dL (7-20) Creatinine 0.7 mg/dL (0.6-1.0) Estimated GFR (Cockcroft-Gault) 82.5 BUN/Creatinine Ratio 26 (6-20) Glucose Level 134 mg/dL (70-99) Calcium Level 8.8 mg/dL (8.5-10.1) Total Bilirubin 0.3 mg/dL (0.2-1.0) Aspartate Amino Transf (AST/SGOT) 6 U/L (15-37) Alanine Aminotransferase (ALT/SGPT) 17 U/L (14-59) Alkaline Phosphatase 66 U/L (46-116) Total Protein 7.1 g/dL (6.4-8.2) Albumin 3.1 g/dL (3.4-5.0) Albumin/Globulin Ratio 0.8 (1.0-1.7) Test 08/03/21 19:06 08/04/21 07:29 Glucose (Fingerstick) 200 mg/dL (70-99) 82 mg/dL (70-99) Laboratory Tests Test 08/03/21 13:04 08/03/21 16:52 08/03/21 19:06 08/04/21 07:29 Glucose (Fingerstick) 150 mg/dL (70-99) 194 mg/dL (70-99) 200 mg/dL (70-99) 82 mg/dL (70-99) Medications Current Medications Insulin Glargine (Lantus Syringe) 30 unit BID SQ Last administered on 08/03/21at 22:24; Start 08/02/21 at 21:00 Insulin Human Lispro (HumaLOG) 0-7 UNITS TIDWMEALS SQ Last administered on 08/03/21at 17:33; Start 08/03/21 at 08:00 Dextrose (Dextrose 50%-Water Syringe) 12.5 gm PRN Q15MIN PRN IV SEE COMMENTS; Start 08/02/21 at 19:15 Dextrose (Iv Dextrose 5%) 250 ml PRN Q15MIN PRN IV SEE COMMENTS; Start 08/02/21 at 19:15 Atorvastatin Calcium (Lipitor) 20 mg HS PO Last administered on 08/03/21 22:21; Start 08/02/21 at 21:00 Carvedilol (Coreg) 3.125 mg BID PO Last administered on 08/03/21at 09:13; Start 08/02/21 at 21:00; Stop 08/03/21 at 12:10; Status DC Ferrous Sulfate (Feosol) 325 mg BID PO Last administered on 08/03/21 22:21; Start 08/02/21 at 21:00 Furosemide (Lasix) 40 mg BID94 PO Last administered on 08/03/21 17:15; Start 08/02/21 at 21:00 Levothyroxine Sodium (Synthroid) 50 mcg DAILYAC PO Last administered on 08/03/21at 09:14; Start 08/03/21 at 07:30 Montelukast Sodium (Singulair) 10 mg DAILY PO Last administered on 08/03/21at 09:14; Start 08/03/21 at 09:00 Nitroglycerin (Nitrostat) 0.4 mg PRN Q5MIN PRN SL CHEST PAIN; Start 08/02/21 at 19:15 Amlodipine Besylate (Norvasc) 2.5 mg HS PO Last administered on 08/03/21 22:21; Start 08/02/21 at 21:00 Calcium/Vitamin D (Oscal D 500mg/ 200uts) 2 tab DAILYWDIN PO Last administered on 08/03/21at 17:34; Start 08/02/21 at 21:00 Citalopram Hydrobromide (CeleXA) 20 mg HS PO Last administered on 08/03/21at 22:21; Start 08/02/21 at 21:00 Insulin Human Lispro (HumaLOG) 10 units QID SQ Last administered on 08/03/21at 17:28; Start 08/02/21 at 21:00 Pantoprazole Sodium (Protonix) 40 mg DAILYAC PO Last administered on 08/03/21at 09:13; Start 08/03/21 at 07:30 Potassium Chloride (Klor-Con) 20 meq DAILYWBKFT PO Last administered on 08/03/21at 09:14; Start 08/03/21 at 08:00 Ondansetron HCl (Zofran) 4 mg PRN Q6HRS PRN IVP NAUSEA/VOMITING; Start 08/02/21 at 19:30 Al Hydroxide/Mg Hydroxide (Mylanta Plus Xs) 30 ml PRN Q3HRS PRN PO HEARTBURN / GAS; Start 08/02/21 at 19:30 Calcium Carbonate/ Glycine (Tums) 500 mg PRN Q3HRS PRN PO UPSET STOMACH; Start 08/02/21 at 19:30 Zolpidem Tartrate (Ambien) 5 mg PRN QHS PRN PO INSOMNIA, MAY REPEAT IN 1HR; Start 08/02/21 at 19:30 Acetaminophen/ Hydrocodone Bitart (Lortab 5/325) 1 tab PRN Q4HRS PRN PO MILD PAIN 1-3; Start 08/02/21 at 19:30 Acetaminophen/ Hydrocodone Bitart (Lortab 5/325) 2 tab PRN Q4HRS PRN PO MODERATE PAIN, SEVERE PAIN Last administered on 08/03/21at 19:39; Start 08/02/21 at 19:30 Acetaminophen (Tylenol) 650 mg PRN Q6HRS PRN PO Headaches, Temp > 101.5F; Start 08/02/21 at 19:30 Magnesium Hydroxide (Milk Of Magnesia) 2,400 mg PRN Q12HR PRN PO CONSTIPATION; Start 08/02/21 at 19:30 Heparin Sodium (Porcine) (Heparin Sodium) 5,000 unit Q8HRS SQ ; Start 08/02/21 at 22:00 Morphine Sulfate (Morphine Sulfate) 2 mg PRN Q2HR PRN IVP SEVERE PAIN 7-10 Last administered on 08/03/21at 08:18; Start 08/02/21 at 22:45; Stop 08/03/21 at 12:12; Status DC Tizanidine HCl (Zanaflex) 4 mg Q8HRS PO Last administered on 08/03/21at 22:21; Start 08/03/21 at 10:00 Lidocaine (Lidoderm) 1 patch DAILY TD Last administered on 08/03/21at 14:00; Start 08/03/21 at 10:00 Miscellaneous (Lidoderm Patch Removal) 1 ea QHS MC Last administered on 04/14at 21:00; Start 08/03/21 at 21:00 Senna/Docusate Sodium (Senna Plus) 1 tab BID PO Last administered on 08/03/21at 22:21; Start 08/03/21 at 10:00 Bisacodyl (Dulcolax Tab) 5 mg PRN DAILY PRN PO CONSTIPATION; Start 08/03/21 at 09:45 Bisacodyl (Dulcolax Tab) 10 mg DAILY PO Last administered on 08/03/21at 10:17; Start 08/03/21 at 10:00 Docusate Sodium (Enemeez) 283 mg PRN DAILY PRN PA CONSTIPATION; Start 08/03/21 at 09:45 Morphine Sulfate (Morphine Sulfate) 4 mg PRN Q2HR PRN IV MODERATE TO SEVERE PAIN Last administered on 08/04/21at 07:46; Start 08/03/21 at 09:45 Carvedilol (Coreg) 3.125 mg BIDWMEALS PO Last administered on 08/03/21at 17:15; Start 08/03/21 at 17:00 Iohexol (Omnipaque 240 Mg/ml) 50 ml STK-MED ONCE .ROUTE ; Start 08/04/21 at 07:47; Stop 08/04/21 at 07:47; Status DC Lidocaine HCl (Buffered Lidocaine 1%) 3 ml STK-MED ONCE .ROUTE ; Start 08/04/21 at 07:47; Stop 08/04/21 at 07:47; Status DC Midazolam HCl (Versed) 2 mg STK-MED ONCE .ROUTE ; Start 08/04/21 at 08:38; Stop 08/04/21 at 08:38; Status DC Fentanyl Citrate (Fentanyl 2ml Vial) 100 mcg STK-MED ONCE .ROUTE ; Start 08/04/21 at 08:38; Stop 08/04/21 at 08:38; Status DC Cefazolin Sodium/ Dextrose 50 ml @ As Directed STK-MED ONCE IV ; Start 08/04/21 at 08:38; Stop 08/04/21 at 08:38; Status DC Lidocaine HCl (Buffered Lidocaine 1%) 12 ml 1X ONCE IJ Last administered on 08/04/21at 09:00; Start 08/04/21 at 09:15; Stop 08/04/21 at 09:16; Status DC Midazolam HCl (Versed) 2 mg 1X ONCE IV Last administered on 08/04/21at 08:56; Start 08/04/21 at 09:15; Stop 08/04/21 at 09:16; Status DC Fentanyl Citrate (Fentanyl 2ml Vial) 100 mcg 1X ONCE IV Last administered on 08/04/21at 08:56; Start 08/04/21 at 09:15; Stop 08/04/21 at 09:16; Status DC Cefazolin Sodium/ Dextrose 50 ml @ 100 mls/hr 1X ONCE IV Last administered on 08/04/21at 08:56; Start 08/04/21 at 09:15; Stop 08/04/21 at 09:44; Status DC Iohexol (Omnipaque 240 Mg/ml) 10 ml 1X ONCE IJ Last administered on 08/04/21at 09:15; Start 08/04/21 at 09:15; Stop 08/04/21 at 09:16; Status DC Info (CONTRAST GIVEN -- Rx MONITORING) 1 each PRN DAILY PRN MC SEE COMMENTS; Start 08/04/21 at 09:15; Stop 08/06/21 at 09:14 Active Scripts Active Feosol (Ferrous Sulfate) 325 Mg Tablet 325 Mg PO BID 30 Days Hydrocodone-Apap 7.5-325 (Hydrocodone Bit/Acetaminophen) 1 Tab Tablet 1-2 Tab PO PRN Q4HRS PRN 1-2 tablets by mouth every 4 hours as needed for pain Reported Calcium 600 + Vit D Caplet (Calcium Carbonate/Vitamin D3) 1 Each Tablet 2 Tab PO HS 30 Days Fish Oil 1,000 mg Softgel ([place]-3/Dha/Epa/Fish Oil) 1,000 Mg Capsule 1,000 Mg PO HS Victoza 3-Darío (Liraglutide) 0.6 Mg/0.1 Ml Pen.injctr 1.8 Mg SQ DAILY Omeprazole 20 Mg Tablet.dr 1 Tab PO DAILY Advair 250-50 Diskus (Fluticasone/Salmeterol) 1 Each Disk.w.dev 1 Puff IH BID Aspirin 81 Mg Tab.chew 1 Tab PO QODAY Montelukast Sodium Tablet (Montelukast Sodium) 10 Mg Tablet 10 Mg PO DAILY Novolog Flexpen (Insulin Aspart) 100 Unit/1 Ml Insuln.pen 10 Unit SQ QID Fish Oil 1,000 Mg Capsule ([place]-3 Fatty Acids/Fish Oil) 1 Each Capsule 1 Each PO DAILY Levemir (Insulin Detemir) 100 Unit/1 Ml Vial 30 Unit SQ HS Amlodipine Besylate 2.5 Mg Tablet 2.5 Mg PO HS Nitrostat (Nitroglycerin) 0.4 Mg Tab.subl 0.4 Mg SL PRN Q5MIN PRN Not given. Resume at home as needed for chest pain. Fosamax Plus D 70 Mg-2,800 Iu (Alendronate Sodium/Vitamin D3) 1 Each Tablet 1 Each PO WEEKLY Escitalopram Oxalate 10 Mg Tablet 10 Mg PO HS Atorvastatin Calcium 20 Mg Tablet 20 Mg PO HS Multi-Vitamin Daily (Multivitamin) 1 Each Tablet 1 Each PO DAILY Loratadine 10 Mg Tab.rapdis 10 Mg PO DAILY Isosorbide Mononitrate Er (Isosorbide Mononitrate) 120 Mg Tab.er.24h 120 Mg PO DAILY Levothyroxine Sodium 50 Mcg Tablet 50 Mcg PO DAILYAC Furosemide 40 Mg Tablet 40 Mg PO BID Metformin Hcl 1,000 Mg Tablet 1,000 Mg PO BID MDD Carvedilol (Carvedilol) 3.125 Mg Tablet 3.125 Mg PO BID K-Tab ER (Potassium Chloride) 20 Meq Tablet.er 20 Meq PO DAILY Vitals/I & O Vital Sign - Last 24 Hours 08/03/21 08/03/21 08/03/21 08/03/21 10:16 10:46 11:00 13:50 Temp 97.8 97.8 Pulse 61 Resp 20 20 18 20 B/P (MAP) 128/65 (86) Pulse Ox 94 91 91 O2 Delivery Nasal Cannula Nasal Cannula Nasal Cannula Nasal Cannula O2 Flow Rate 2.0 2.0 2.0 08/03/21 08/03/21 08/03/21 08/03/21 14:20 15:00 17:15 19:00 Temp 97.5 97.7 97.5 97.7 Pulse 60 61 64 Resp 18 18 B/P (MAP) 162/60 (94) 128/65 156/44 (81) Pulse Ox 91 95 95 O2 Delivery Nasal Cannula Nasal Cannula Nasal Cannula O2 Flow Rate 2.0 2.0 2.0 08/03/21 08/03/21 08/03/21 08/04/21 20:00 22:21 22:50 02:46 Temp 97.9 97.8 97.9 97.8 Pulse 64 60 60 Resp 17 18 B/P (MAP) 156/44 167/60 (95) 147/60 (89) Pulse Ox 95 96 O2 Delivery Nasal Cannula Nasal Cannula Nasal Cannula O2 Flow Rate 2.0 2.0 2.0 08/04/21 08/04/21 08/04/21 08/04/21 07:00 07:46 07:51 08:56 Temp 97.9 97.9 Pulse 64 Resp 20 18 15 B/P (MAP) 188/66 (106) Pulse Ox 91 O2 Delivery Nasal Cannula Room Air Room Air O2 Flow Rate 2.0 08/04/21 09:28 Pulse 70 Resp 16 Pulse Ox 95 O2 Delivery Nasal Cannula O2 Flow Rate 2.0 Intake and Output 08/03/21 08/03/21 08/04/21 15:00 23:00 07:00 Intake Total 250 ml Output Total 800 ml Balance -550 ml Justifications for Admission Other Justification EMPERATRIZ BANDA MD Aug 04, 2021 09:52
[2021-08-04] MEDS: MONTELUKAST SODIUM 10 MG TABLET. PO SCH (11:09)
[2021-08-04] MEDS: PANTOPRAZOLE 40 MG TABLET.DR. PO SCH (11:09)
[2021-08-04] MEDS: SENNOSIDES/DOCUSATE 8.6/50MG TABLET. PO SCH ×2 (11:10→21:51)
[2021-08-04] MEDS: FERROUS SULFATE 325 MG TABLET. PO SCH ×2 (11:10→21:51)
[2021-08-04] MEDS: FUROSEMIDE 40 MG TABLET. PO SCH ×3 (11:10→21:52)
[2021-08-04] MEDS: CARVEDILOL 3.125 MG TABLET. PO SCH ×2 (11:10→17:31)
[2021-08-04] MEDS: LEVOTHYROXINE 50 MCG TABLET PO SCH (11:11)
[2021-08-04] MEDS: BISACODYL 5 MG TABLET.DR. PO SCH (11:11)
[2021-08-04] MEDS: POTASSIUM CHLORIDE 10 MEQ TABLET.ER. PO SCH (11:11)
[2021-08-04] MEDS: LIDOCAINE (700MG/PATCH) PATCH. TD SCH (11:12)
[2021-08-04] MEDS: HYDROcodone/APAP 5/325MG 1 TAB TABLET PO PRN ×2 (11:42→21:52)
--- NOTE | 2021-08-04 14:58 | PDOC ---
[employer] PROGRESS NOTE Date of Service DOS: DATE: 08/04/21 TIME: 14:56 Chief Complaint Chief Complaint Acute L4 compression fracture DM2 CHF HTN hypothyroidism History of Present Illness History of Present Illness 08/03: Patient seen and evaluated with at bedside. Per Dr. High, will order MRI and as per neurologist. Given new left lower extremity symptoms. If Dr. Velasquez feels kyphoplasty is in her best interest, then I believe he will proceed tomorrow. Patient still complains of uncontrolled pain. She did receive morphine in [facility] ER and is requesting for acute pain. Will increase morphine dose. Discussed with RN. 08/04: Patient seen and evaluated bedside. S/P L4 kyphoplasty. She is working with PT today, reportedly able to discharge home with family care. Due to some dizziness and diaphoresis today after PT, anticipate discharge tomorrow. Vitals/I&O Vitals/I&O: Vital Signs Date Time Temp Pulse Resp B/P (MAP) Pulse Ox O2 Delivery O2 Flow Rate FiO2 08/04/21 13:51 65 20 127/72 (90) 93 Nasal Cannula 2.0 08/04/21 10:49 97.8 97.8 I & O 08/03/21 08/03/21 08/04/21 15:00 23:00 07:00 Intake Total 250 ml Output Total 800 ml Balance -550 ml Physical Exam General: Alert, Cooperative, No acute distress Heart: Regular rate Lungs: Clear Abdomen: Soft, No masses Extremities: No cyanosis Skin: No rashes, No breakdown Labs Labs: Laboratory Tests Test 08/03/21 16:52 08/03/21 19:06 08/04/21 07:29 08/04/21 11:43 Glucose (Fingerstick) 194 mg/dL (70-99) 200 mg/dL (70-99) 82 mg/dL (70-99) 114 mg/dL (70-99) Comment Review of Relevant I have reviewed the following items maria r (where applicable) has been applied. Medications: Current Medications Medications (Trade) Dose Ordered Sig/Petey Route PRN Reason Start Time Stop Time Status Last Admin Dose Admin Miscellaneous (Lidoderm Patch Removal) 1 ea QHS MC 08/03/21 21:00 08/03/21 21:00 Carvedilol (Coreg) 3.125 mg BIDWMEALS PO 08/03/21 17:00 08/04/21 11:10 Lidocaine HCl (Buffered Lidocaine 1%) 12 ml 1X ONCE IJ 08/04/21 09:15 08/04/21 09:16 DC 08/04/21 09:00 Midazolam HCl (Versed) 2 mg 1X ONCE IV 08/04/21 09:15 08/04/21 09:16 DC 08/04/21 08:56 Fentanyl Citrate (Fentanyl 2ml Vial) 100 mcg 1X ONCE IV 08/04/21 09:15 08/04/21 09:16 DC 08/04/21 08:56 Cefazolin Sodium/ Dextrose 50 ml @ 100 mls/hr 1X ONCE IV 08/04/21 09:15 08/04/21 09:44 DC 08/04/21 08:56 Iohexol (Omnipaque 240 Mg/ml) 10 ml 1X ONCE IJ 08/04/21 09:15 08/04/21 09:16 DC 08/04/21 09:15 Justifications for Admission Other Justification VIGNESH BOWEN MD Aug 04, 2021 14:58
--- NOTE | 2021-08-04 16:50 | RAD ---
Fluoroscopically guided L4 kyphoplasty Clinical Indication: Pathologic compression fracture of the L4 vertebral body secondary to osteoporos is/osteopenia with severe pain, immobilization, and inability to participate in activities of daily l iving. Consent: The procedure was explained in its entirety to the patient or the patients designated repres entative by a member of the treatment team, including a discussion of the risks, benefits and commonl y accepted alternatives to the procedure, as well as the expected consequences of no therapy whatsoev er. Discussion of the risks included, but was not limited to, those that are most frequent and thos e that are rare but possibly severe or life-threatening, as well as the possibility of unforeseen com plications. Patient was brought to the fluoroscopy suite and placed in the prone position. A timeout procedure wa s performed. The lumbar region was prepped and draped using maximum sterile barrier technique. 1% lid ocaine was administered for local anesthesia. The L4 vertebral body and pedicles were evaluated under fluoroscopy. Using a left uni pedicular appr oach a trocar needle was advanced into the posterior third of the L4 vertebral body. A curved balloon was advanced into the central vertebral body and deployed. A curved cement delivery needle was advan frank into the central vertebral body and methylmethacrylate based cement was slowly delivered, under c areful fluoroscopic control. Once adequate filling of the vertebral body had been obtained, all needl es were removed. Manual pressure was held. No immediate complications were identified. Sedation: The procedure was performed under conscious sedation including continuous cardiopulmonary m onitoring via a dedicated sedation nurse. [id number] sedation time: 29 minutes Total fluoroscopy time: 6.2 minutes Dose area product [id number] IMPRESSION: Fluoroscopically guided L4 kyphoplasty Electronically signed by: Black High MD (08/04/2021 4:47 PM) [id number]
[2021-08-04] MEDS: CALCIUM CARB/VIT D3 500/200 TABLET. PO SCH (18:00)
[2021-08-04] MEDS: PATCH REMOVAL. MC SCH (21:00)
[2021-08-04] MEDS: ATORVASTATIN CALCIUM 20 MG TABLET PO SCH (21:51)
[2021-08-04] MEDS: CITALOPRAM 20 MG TABLET. PO SCH (21:51)
[2021-08-05 03:00] VITALS: BP 173/54
[2021-08-05] MEDS: HYDROcodone/APAP 5/325MG 1 TAB TABLET PO PRN ×2 (03:43→10:00)
[2021-08-05] MEDS: tiZANidine 4 MG TABLET. PO SCH (05:45)
[2021-08-05] MEDS: HEPARIN for SUB-Q USE 5,000 UNIT/ML VIAL. SQ SCH (05:46)
[2021-08-05 07:00] VITALS: BP 132/57
[2021-08-05] MEDS: INSULIN LISPRO 300 UNITS/3 ML VIAL. SQ SCH ×4 (08:00→11:34)
[2021-08-05] MEDS: INSULIN GLARGINE SYRINGE. SQ SCH (09:00)
[2021-08-05] MEDS: SENNOSIDES/DOCUSATE 8.6/50MG TABLET. PO SCH (09:03)
[2021-08-05] MEDS: FERROUS SULFATE 325 MG TABLET. PO SCH (09:03)
[2021-08-05] MEDS: LEVOTHYROXINE 50 MCG TABLET PO SCH (09:03)
[2021-08-05] MEDS: MONTELUKAST SODIUM 10 MG TABLET. PO SCH (09:03)
[2021-08-05] MEDS: LIDOCAINE (700MG/PATCH) PATCH. TD SCH (09:03)
[2021-08-05] MEDS: POTASSIUM CHLORIDE 10 MEQ TABLET.ER. PO SCH (09:03)
[2021-08-05] MEDS: BISACODYL 5 MG TABLET.DR. PO SCH (09:04)
[2021-08-05] MEDS: CARVEDILOL 3.125 MG TABLET. PO SCH (09:04)
[2021-08-05] MEDS: FUROSEMIDE 40 MG TABLET. PO SCH (09:04)
[2021-08-05] MEDS: PANTOPRAZOLE 40 MG TABLET.DR. PO SCH (09:04)
--- NOTE | 2021-08-05 10:03 | PDOC ---
PROGRESS NOTES Date of Service DATE: 08/05/21 TIME: 09:58 Subjective Subjective No new complaints. Back pain is minimal. Objective Objective Vital Signs Date Time Temp Pulse Resp B/P (MAP) Pulse Ox O2 Delivery O2 Flow Rate FiO2 08/05/21 09:04 63 132/57 08/05/21 08:00 Room Air 08/05/21 07:00 97.7 16 92 97.7 08/04/21 15:00 2.0 Intake and Output 08/05/21 07:00 Intake Total 480 ml Output Total 1650 ml Balance -1170 ml Intake Oral 480 ml Output Urine Total 1350 ml Urine/Stool Mix 300 ml # Bowel Movements 4 Physical Exam Physical Exam She is supine and alert, and she walked for 200' with roller walker yesterday but felt diaphoretic after walking. She feels alright this AM and had moved her bowels. Plan Plan of Halfway when medically stable and as she did not receive lumbar corset yet,I gave her a prescription for it and she will try at [employer] and if she feels comfortable to use it she can receive it an ghulamso advised her to use roller walker for the time being and also reviewed with her proper body mechanics and avoid any activity that irritates her low back. Comment Review of Relevant I have reviewed the following items maria r (where applicable) has been applied. Labs Laboratory Tests Test 08/03/21 13:04 08/03/21 16:52 08/03/21 19:06 08/04/21 07:29 Glucose (Fingerstick) 150 mg/dL (70-99) 194 mg/dL (70-99) 200 mg/dL (70-99) 82 mg/dL (70-99) Test 08/04/21 11:43 08/04/21 16:27 08/04/21 19:48 08/05/21 07:08 Glucose (Fingerstick) 114 mg/dL (70-99) 150 mg/dL (70-99) 161 mg/dL (70-99) 114 mg/dL (70-99) Laboratory Tests Test 08/04/21 11:43 08/04/21 16:27 08/04/21 19:48 08/05/21 07:08 Glucose (Fingerstick) 114 mg/dL (70-99) 150 mg/dL (70-99) 161 mg/dL (70-99) 114 mg/dL (70-99) Medications Current Medications Insulin Glargine (Lantus Syringe) 30 unit BID SQ Last administered on 08/04/21 22:20; Start 08/02/21 at 21:00 Insulin Human Lispro (HumaLOG) 0-7 UNITS TIDWMEALS SQ Last administered on 08/03/21at 17:33; Start 08/03/21 at 08:00 Dextrose (Dextrose 50%-Water Syringe) 12.5 gm PRN Q15MIN PRN IV SEE COMMENTS; Start 08/02/21 at 19:15 Dextrose (Iv Dextrose 5%) 250 ml PRN Q15MIN PRN IV SEE COMMENTS; Start 08/02/21 at 19:15 Atorvastatin Calcium (Lipitor) 20 mg HS PO Last administered on 08/04/21at 21:51; Start 08/02/21 at 21:00 Carvedilol (Coreg) 3.125 mg BID PO Last administered on 08/03/21 09:13; Start 08/02/21 at 21:00; Stop 08/03/21 at 12:10; Status DC Ferrous Sulfate (Feosol) 325 mg BID PO Last administered on 08/05/21 09:03; Start 08/02/21 at 21:00 Furosemide (Lasix) 40 mg BID94 PO Last administered on 08/05/21 09:04; Start 08/02/21 at 21:00 Levothyroxine Sodium (Synthroid) 50 mcg DAILYAC PO Last administered on 08/05/21 09:03; Start 08/03/21 at 07:30 Montelukast Sodium (Singulair) 10 mg DAILY PO Last administered on 08/05/21 09:03; Start 08/03/21 at 09:00 Nitroglycerin (Nitrostat) 0.4 mg PRN Q5MIN PRN SL CHEST PAIN; Start 08/02/21 at 19:15 Amlodipine Besylate (Norvasc) 2.5 mg HS PO Last administered on 08/04/21 21:52; Start 08/02/21 at 21:00 Calcium/Vitamin D (Oscal D 500mg/ 200uts) 2 tab DAILYWDIN PO Last administered on 08/04/21at 18:00; Start 08/02/21 at 21:00 Citalopram Hydrobromide (CeleXA) 20 mg HS PO Last administered on 08/04/21at 21:51; Start 08/02/21 at 21:00 Insulin Human Lispro (HumaLOG) 10 units QID SQ Last administered on 08/05/21at 09:08; Start 08/02/21 at 21:00 Pantoprazole Sodium (Protonix) 40 mg DAILYAC PO Last administered on 08/05/21at 09:04; Start 08/03/21 at 07:30 Potassium Chloride (Klor-Con) 20 meq DAILYWBKFT PO Last administered on 08/05/21at 09:03; Start 08/03/21 at 08:00 Ondansetron HCl (Zofran) 4 mg PRN Q6HRS PRN IVP NAUSEA/VOMITING; Start 08/02/21 at 19:30 Al Hydroxide/Mg Hydroxide (Mylanta Plus Xs) 30 ml PRN Q3HRS PRN PO HEARTBURN / GAS; Start 08/02/21 at 19:30 Calcium Carbonate/ Glycine (Tums) 500 mg PRN Q3HRS PRN PO UPSET STOMACH Last administered on 08/04/21at 17:30; Start 08/02/21 at 19:30 Zolpidem Tartrate (Ambien) 5 mg PRN QHS PRN PO INSOMNIA, MAY REPEAT IN 1HR; Start 08/02/21 at 19:30 Acetaminophen/ Hydrocodone Bitart (Lortab 5/325) 1 tab PRN Q4HRS PRN PO MILD PAIN 1-3 Last administered on 08/04/21at 21:52; Start 08/02/21 at 19:30 Acetaminophen/ Hydrocodone Bitart (Lortab 5/325) 2 tab PRN Q4HRS PRN PO MODERATE PAIN, SEVERE PAIN Last administered on 08/05/21at 03:43; Start 08/02/21 at 19:30 Acetaminophen (Tylenol) 650 mg PRN Q6HRS PRN PO Headaches, Temp > 101.5F; Start 08/02/21 at 19:30 Magnesium Hydroxide (Milk Of Magnesia) 2,400 mg PRN Q12HR PRN PO CONSTIPATION, 2ND CHOICE; Start 08/02/21 at 19:30 Heparin Sodium (Porcine) (Heparin Sodium) 5,000 unit Q8HRS SQ Last administered on 08/05/21 05:46; Start 08/02/21 at 22:00 Morphine Sulfate (Morphine Sulfate) 2 mg PRN Q2HR PRN IVP SEVERE PAIN 7-10 Last administered on 08/03/21 08:18; Start 08/02/21 at 22:45; Stop 08/03/21 at 12:12; Status DC Tizanidine HCl (Zanaflex) 4 mg Q8HRS PO Last administered on 08/05/21at 05:45; Start 08/03/21 at 10:00 Lidocaine (Lidoderm) 1 patch DAILY TD Last administered on 08/05/21 09:03; Start 08/03/21 at 10:00 Miscellaneous (Lidoderm Patch Removal) 1 ea QHS MC Last administered on 08/04/21at 21:00; Start 08/03/21 at 21:00 Senna/Docusate Sodium (Senna Plus) 1 tab BID PO Last administered on 08/05/21at 09:03; Start 08/03/21 at 10:00 Bisacodyl (Dulcolax Tab) 5 mg PRN DAILY PRN PO CONSTIPATION; Start 08/03/21 at 09:45 Bisacodyl (Dulcolax Tab) 10 mg DAILY PO Last administered on 08/05/21 09:04; Start 08/03/21 at 10:00 Docusate Sodium (Enemeez) 283 mg PRN DAILY PRN PA CONSTIPATION; Start 08/03/21 at 09:45 Morphine Sulfate (Morphine Sulfate) 4 mg PRN Q2HR PRN IV MODERATE TO SEVERE PAIN Last administered on 08/04/21at 22:56; Start 08/03/21 at 09:45 Carvedilol (Coreg) 3.125 mg BIDWMEALS PO Last administered on 08/05/21at 09:04; Start 08/03/21 at 17:00 Iohexol (Omnipaque 240 Mg/ml) 50 ml STK-MED ONCE .ROUTE ; Start 08/04/21 at 07:47; Stop 08/04/21 at 07:47; Status DC Lidocaine HCl (Buffered Lidocaine 1%) 3 ml STK-MED ONCE .ROUTE ; Start 08/04/21 at 07:47; Stop 08/04/21 at 07:47; Status DC Midazolam HCl (Versed) 2 mg STK-MED ONCE .ROUTE ; Start 08/04/21 at 08:38; Stop 08/04/21 at 08:38; Status DC Fentanyl Citrate (Fentanyl 2ml Vial) 100 mcg STK-MED ONCE .ROUTE ; Start 08/04/21 at 08:38; Stop 08/04/21 at 08:38; Status DC Cefazolin Sodium/ Dextrose 50 ml @ As Directed STK-MED ONCE IV ; Start 08/04/21 at 08:38; Stop 08/04/21 at 08:38; Status DC Lidocaine HCl (Buffered Lidocaine 1%) 12 ml 1X ONCE IJ Last administered on 08/04/21at 09:00; Start 08/04/21 at 09:15; Stop 08/04/21 at 09:16; Status DC Midazolam HCl (Versed) 2 mg 1X ONCE IV Last administered on 08/04/21at 08:56; Start 08/04/21 at 09:15; Stop 08/04/21 at 09:16; Status DC Fentanyl Citrate (Fentanyl 2ml Vial) 100 mcg 1X ONCE IV Last administered on 08/04/21at 08:56; Start 08/04/21 at 09:15; Stop 08/04/21 at 09:16; Status DC Cefazolin Sodium/ Dextrose 50 ml @ 100 mls/hr 1X ONCE IV Last administered on 08/04/21at 08:56; Start 08/04/21 at 09:15; Stop 08/04/21 at 09:44; Status DC Iohexol (Omnipaque 240 Mg/ml) 10 ml 1X ONCE IJ Last administered on 08/04/21at 09:15; Start 08/04/21 at 09:15; Stop 08/04/21 at 09:16; Status DC Info (CONTRAST GIVEN -- Rx MONITORING) 1 each PRN DAILY PRN MC SEE COMMENTS; Start 08/04/21 at 09:15; Stop 08/06/21 at 09:14 Active Scripts Active Feosol (Ferrous Sulfate) 325 Mg Tablet 325 Mg PO BID 30 Days Hydrocodone-Apap 7.5-325 (Hydrocodone Bit/Acetaminophen) 1 Tab Tablet 1-2 Tab PO PRN Q4HRS PRN 1-2 tablets by mouth every 4 hours as needed for pain Reported Calcium 600 + Vit D Caplet (Calcium Carbonate/Vitamin D3) 1 Each Tablet 2 Tab PO HS 30 Days Fish Oil 1,000 mg Softgel (Kimberly-3/Dha/Epa/Fish Oil) 1,000 Mg Capsule 1,000 Mg PO HS Victoza 3-Darío (Liraglutide) 0.6 Mg/0.1 Ml Pen.injctr 1.8 Mg SQ DAILY Omeprazole 20 Mg Tablet.dr 1 Tab PO DAILY Advair 250-50 Diskus (Fluticasone/Salmeterol) 1 Each Disk.w.dev 1 Puff IH BID Aspirin 81 Mg Tab.chew 1 Tab PO QODAY Montelukast Sodium Tablet (Montelukast Sodium) 10 Mg Tablet 10 Mg PO DAILY Novolog Flexpen (Insulin Aspart) 100 Unit/1 Ml Insuln.pen 10 Unit SQ QID Fish Oil 1,000 Mg Capsule (Kimberly-3 Fatty Acids/Fish Oil) 1 Each Capsule 1 Each PO DAILY Levemir (Insulin Detemir) 100 Unit/1 Ml Vial 30 Unit SQ HS Amlodipine Besylate 2.5 Mg Tablet 2.5 Mg PO HS Nitrostat (Nitroglycerin) 0.4 Mg Tab.subl 0.4 Mg SL PRN Q5MIN PRN Not given. Resume at home as needed for chest pain. Fosamax Plus D 70 Mg-2,800 Iu (Alendronate Sodium/Vitamin D3) 1 Each Tablet 1 Each PO WEEKLY Escitalopram Oxalate 10 Mg Tablet 10 Mg PO HS Atorvastatin Calcium 20 Mg Tablet 20 Mg PO HS Multi-Vitamin Daily (Multivitamin) 1 Each Tablet 1 Each PO DAILY Loratadine 10 Mg Tab.rapdis 10 Mg PO DAILY Isosorbide Mononitrate Er (Isosorbide Mononitrate) 120 Mg Tab.er.24h 120 Mg PO DAILY Levothyroxine Sodium 50 Mcg Tablet 50 Mcg PO DAILYAC Furosemide 40 Mg Tablet 40 Mg PO BID Metformin Hcl 1,000 Mg Tablet 1,000 Mg PO BID MDD Carvedilol (Carvedilol) 3.125 Mg Tablet 3.125 Mg PO BID K-Tab ER (Potassium Chloride) 20 Meq Tablet.er 20 Meq PO DAILY Vitals/I & O Vital Sign - Last 24 Hours 08/04/21 08/04/21 08/04/21 08/04/21 10:03 10:18 10:34 10:49 Temp 97.8 97.8 Pulse 65 65 68 65 Resp 20 20 20 20 B/P (MAP) 165/68 (100) 192/66 (108) 171/69 (103) 153/66 (95) Pulse Ox 97 96 99 98 O2 Delivery Nasal Cannula Nasal Cannula Nasal Cannula Nasal Cannula O2 Flow Rate 2.0 2.0 2.0 2.0 08/04/21 08/04/21 08/04/21 08/04/21 11:10 11:20 11:42 11:50 Pulse 65 65 67 Resp 20 18 20 B/P (MAP) 153/66 155/59 (91) 152/76 (101) Pulse Ox 98 96 O2 Delivery Nasal Cannula Nasal Cannula Nasal Cannula O2 Flow Rate 2.0 2.0 2.0 08/04/21 08/04/21 08/04/21 08/04/21 12:12 12:19 12:50 13:51 Pulse 65 70 65 Resp 19 20 20 20 B/P (MAP) 155/69 (97) 147/79 (101) 127/72 (90) Pulse Ox 97 98 93 O2 Delivery Nasal Cannula Nasal Cannula Nasal Cannula Nasal Cannula O2 Flow Rate 2.0 2.0 2.0 2.0 08/04/21 08/04/21 08/04/21 08/04/21 15:00 17:31 19:00 20:00 Temp 98.2 98.4 98.2 98.4 Pulse 63 60 67 Resp 20 18 B/P (MAP) 143/71 (95) 157/66 147/54 (85) Pulse Ox 94 95 O2 Delivery Nasal Cannula Room Air Room Air O2 Flow Rate 2.0 08/04/21 08/04/21 08/05/21 08/05/21 21:52 23:00 03:00 07:00 Temp 98.7 98.8 97.7 98.7 98.8 97.7 Pulse 67 71 66 63 Resp 16 20 16 B/P (MAP) 147/54 165/70 (101) 173/54 (93) 132/57 (82) Pulse Ox 92 94 92 O2 Delivery Room Air Room Air Room Air 08/05/21 08/05/21 08:00 09:04 Pulse 63 B/P (MAP) 132/57 O2 Delivery Room Air Intake and Output 08/04/21 08/04/21 08/05/21 15:00 23:00 07:00 Intake Total 240 ml 240 ml Output Total 1350 ml 300 ml Balance -1110 ml -60 ml Justifications for Admission Other Justification EMPERATRIZ BANDA MD Aug 05, 2021 10:03
--- NOTE | 2021-08-05 10:13 | PDOC ---
[facility] PROGRESS NOTE Date of Service DOS: DATE: 08/05/21 TIME: 10:12 Chief Complaint Chief Complaint Acute L4 compression fracture DM2 CHF HTN hypothyroidism History of Present Illness History of Present Illness 08/03: Patient seen and evaluated with at bedside. Per Dr. High, will order MRI and as per neurologist. Given new left lower extremity symptoms. If Dr. Velasquez feels kyphoplasty is in her best interest, then I believe he will proceed tomorrow. Patient still complains of uncontrolled pain. She did receive morphine in [facility] and is requesting for acute pain. Will increase morphine dose. Discussed with RN. 08/04: Patient seen and evaluated bedside. S/P L4 kyphoplasty. She is working with PT today, reportedly able to discharge home with family care. Due to some dizziness and diaphoresis today after PT, anticipate discharge tomorrow. 08/05: Patient with no complaints today. States her pain is tolerable with medications but overall much better. Will discharge home with family care. Greater than 30 minutes spent managing the discharge of this patient. Vitals/I&O Vitals/I&O: Vital Signs Date Time Temp Pulse Resp B/P (MAP) Pulse Ox O2 Delivery O2 Flow Rate FiO2 08/05/21 10:00 18 Room Air 08/05/21 09:04 63 132/57 08/05/21 07:00 97.7 92 97.7 08/04/21 15:00 2.0 I & O 08/04/21 08/04/21 08/05/21 15:00 23:00 07:00 Intake Total 240 ml 240 ml Output Total 1350 ml 300 ml Balance -1110 ml -60 ml Physical Exam General: Alert, Cooperative, No acute distress Heart: Regular rate Lungs: Clear Abdomen: Soft, No masses Extremities: No cyanosis Skin: No rashes, No breakdown Labs Labs: Laboratory Tests Test 08/04/21 11:43 08/04/21 16:27 08/04/21 19:48 08/05/21 07:08 Glucose (Fingerstick) 114 mg/dL (70-99) 150 mg/dL (70-99) 161 mg/dL (70-99) 114 mg/dL (70-99) Comment Review of Relevant I have reviewed the following items maria r (where applicable) has been applied. Justifications for Admission Other Justification VIGNESH BOWEN MD Aug 05, 2021 10:13
--- NOTE | 2021-08-05 10:15 | PDOC3 ---
Discharge Summary Visit Information Date of Admission: Aug 02, 2021 Date of Discharge: Aug 05, 2021 Brief Hospital Course Allergies Allergies Coded Allergies Type Severity Reaction Last Updated Verified niacin Allergy Intermediate Rash 01/05/21 Yes silver Allergy Intermediate RASH/BLISTERS; AQUACEL AG DRESSING 01/05/21 Yes codeine Adverse Reaction Intermediate Nausea and Vomiting 01/05/21 Yes nifedipine Adverse Reaction Intermediate Nausea and Vomiting 01/05/21 Yes oxycodone Adverse Reaction Intermediate HEADACHE 01/05/21 Yes propoxyphene Adverse Reaction Intermediate passed out 01/05/21 Yes Vital Signs Vital Signs Date Time Temp Pulse Resp B/P (MAP) Pulse Ox O2 Delivery O2 Flow Rate FiO2 08/05/21 10:00 18 Room Air 08/05/21 09:04 63 132/57 08/05/21 07:00 97.7 92 97.7 08/04/21 15:00 2.0 Lab Results Laboratory Tests Test 08/03/21 13:04 08/03/21 16:52 08/03/21 19:06 08/04/21 07:29 Glucose (Fingerstick) 150 mg/dL (70-99) 194 mg/dL (70-99) 200 mg/dL (70-99) 82 mg/dL (70-99) Test 08/04/21 11:43 08/04/21 16:27 08/04/21 19:48 08/05/21 07:08 Glucose (Fingerstick) 114 mg/dL (70-99) 150 mg/dL (70-99) 161 mg/dL (70-99) 114 mg/dL (70-99) Laboratory Tests Test 08/04/21 11:43 08/04/21 16:27 08/04/21 19:48 08/05/21 07:08 Glucose (Fingerstick) 114 mg/dL (70-99) 150 mg/dL (70-99) 161 mg/dL (70-99) 114 mg/dL (70-99) Brief Hospital Course Ms. Swain is a 71 old female who presented with acute L4 two column vertebral body compression fracture. Consultation placed to PM&R, IR. She had fluoroscopically guided L4 kyphoplasty on 08/04. She was held overnight due to some complaints of dizziness. Improved symptomatically the next day, stable for discharge home with family care. Discharge Information Condition at Discharge: Improved Disposition/Orders: D/C to Home Scheduled Alendronate Sodium/Vitamin D3 (Fosamax Plus D 70 Mg-2,800 Iu) 1 Each Tablet, 1 EACH PO WEEKLY for osteoporosis, (Reported) Entered as Reported by: GIORGI BONE on 01/09/14720 Amlodipine Besylate (Amlodipine Besylate) 2.5 Mg Tablet, 2.5 MG PO HS for htn, (Reported) Entered as Reported by: REBECCA VALVERDE on 09/01/14 1325 Last Action: Converted on 08/02/211912 by VIGNESH BOWEN MD Aspirin (Aspirin) 81 Mg Tab.chew, 1 TAB PO QODAY for heart health, #30 Ref 3 (Reported) Entered as Reported by: NIRMALA ESTRADA on 01/01/19 1135 Atorvastatin Calcium (Atorvastatin Calcium) 20 Mg Tablet, 20 MG PO HS for , #30 Ref 0 (Reported) Entered as Reported by: GIORGI BONE on 01/09/14720 Last Action: Continued on 08/02/211912 by VIGNESH BOWEN MD Calcium Carbonate/Vitamin D3 (Calcium 600 + Vit D Caplet) 1 Each Tablet, 2 TAB PO HS for vitamin for 30 Days, #60 Ref 0 (Reported) Entered as Reported by: DELANO GOMEZ on 06/04/19 1239 Last Action: Converted on 08/02/211912 by VIGNESH BOWEN MD Carvedilol (Carvedilol ) 3.125 Mg Tablet, 3.125 MG PO BID for htn, (Reported) Entered as Reported by: GIORGI BONE on 01/09/14720 Last Action: Continued on 08/02/211912 by VIGNESH BOWEN MD Escitalopram Oxalate (Escitalopram Oxalate) 10 Mg Tablet, 10 MG PO HS for depression, #30 Ref 0 (Reported) Entered as Reported by: GIORGI BONE on 01/09/14720 Last Action: Converted on 08/02/211912 by VIGNESH BOWEN MD Ferrous Sulfate (Feosol) 325 Mg Tablet, 325 MG PO BID for anemia for 30 Days, #60 Prescribed by: MARY BLANCA MD on 01/06/21 1354 Last Action: Continued on 08/02/211912 by VIGNESH BOWEN MD Fluticasone/Salmeterol (Advair 250-50 Diskus) 1 Each Disk.w.dev, 1 PUFF IH BID for help breathing, #3 Ref 3 (Reported) Entered as Reported by: NIRMALA ESTRADA on 01/01/19 113 Furosemide (Furosemide) 40 Mg Tablet, 40 MG PO BID for chf, (Reported) Entered as Reported by: GIORGI BONE on 01/09/14720 Last Action: Continued on 08/02/211912 by VIGNESH BOWEN MD Insulin Aspart (Novolog Flexpen) 100 Unit/1 Ml Insuln.pen, 10 UNIT SQ QID for blood sugar control, (Reported) Entered as Reported by: NIRMALA ESTRADA on 01/01/191134 Last Action: Converted on 08/02/211912 by VIGNESH BOWEN MD Insulin Detemir (Levemir) 100 Unit/1 Ml Vial, 30 UNIT SQ HS for DIABETES, (Reported) Entered as Reported by: ASHLY LAYTON on 07/17/15 1232 Isosorbide Mononitrate (Isosorbide Mononitrate Er) 120 Mg Tab.er.24h, 120 MG PO DAILY for htn, (Reported) Entered as Reported by: GIORGI BONE on 01/09/14720 Levothyroxine Sodium (Levothyroxine Sodium) 50 Mcg Tablet, 50 MCG PO DAILYAC for thyroid, #30 Ref 0 (Reported) Entered as Reported by: GIORGI BONE on 01/09/14720 Last Action: Continued on 08/02/211912 by VIGNESH BOWEN MD Liraglutide (Victoza 3-Darío) 0.6 Mg/0.1 Ml Pen.injctr, 1.8 MG SQ DAILY for diabetes, #27 Ref 3 (Reported) Entered as Reported by: DELANO GOMEZ on 06/04/19 1222 Loratadine (Loratadine) 10 Mg Tab.rapdis, 10 MG PO DAILY for allergies, (Reported) Entered as Reported by: GIORGI BONE on 01/09/14720 Metformin Hcl (Metformin Hcl) 1,000 Mg Tablet, 1,000 MG PO BID for diabetes MDD , Ref 0 (Reported) Entered as Reported by: GIORGI BONE on 01/09/14720 Montelukast Sodium (Montelukast Sodium Tablet ) 10 Mg Tablet, 10 MG PO DAILY for FOR ASTHMA, Ref 0 (Reported) Entered as Reported by: NIRMALA ESTRADA on 01/01/19 1135 Last Action: Continued on 08/02/211912 by VIGNESH BOWEN MD Multivitamin (Multi-Vitamin Daily) 1 Each Tablet, 1 EACH PO DAILY for vitamin, (Reported) Entered as Reported by: GIORGI BONE on 01/09/14 0721 Aurora-3 Fatty Acids/Fish Oil (Fish Oil 1,000 Mg Capsule) 1 Each Capsule, 1 EACH PO DAILY for heart health, (Reported) Entered as Reported by: NIRMALA ESTRADA on 01/01/19 1135 Aurora-3/Dha/Epa/Fish Oil (Fish Oil 1,000 mg Softgel) 1,000 Mg Capsule, 1,000 MG PO HS for heart health, (Reported) Entered as Reported by: DELANO GOMEZ on 06/04/19 1225 Omeprazole (Omeprazole) 20 Mg Tablet.dr, 1 TAB PO DAILY for gerd, #90 Ref 1 (Reported) Entered as Reported by: DELANO GOMEZ on 06/04/19 1213 Last Action: Converted on 08/02/211912 by VIGNESH BOWEN MD Potassium Chloride (K-Tab ER) 20 Meq Tablet.er, 20 MEQ PO DAILY for , (Reported) Entered as Reported by: GIORGI BONE on 01/09/14 0721 Last Action: Converted on 08/02/211912 by VIGNESH BOWEN MD Scheduled PRN Hydrocodone Bit/Acetaminophen (Hydrocodone-Apap 7.5-325 ) 1 Tab Tablet, 1-2 TAB PO PRN Q4HRS PRN for PAIN, #60 1-2 tablets by mouth every 4 hours as needed for pain Prescribed by: KAYCE MACHUCA MD on 06/20/19 1305 Nitroglycerin (Nitrostat) 0.4 Mg Tab.subl, 0.4 MG SL PRN Q5MIN PRN for CHEST PAIN, (Reported) Not given. Resume at home as needed for chest pain. Entered as Reported by: REBECCA VALVERDE on 09/01/14 1324 Last Action: Continued on 08/02/211912 by VIGNESH BOWEN MD Justicifation of Admission Dx: Justifications for Admission: Justification of Admission Dx: VIGNESH Cedeno MD Aug 05, 2021 10:15
[2021-08-05] MEDS ORDERED: HYDR-2761 PO (10:20)
[2021-08-05 11:00] VITALS: BP 176/58
--- NOTE | 2021-08-05 13:11 | NUR ---
Discharge Note: JOSE CHARLES Discharge instructions and discharge home medications reviewed with Patient and a copy given. All questions have been answered and understanding verbalized. The following instructions and handouts were given: worsening symptoms, medication reconciliation, activity, follow up, incision care information, and post vertbroplasty education. Discontinued lines and drains: IV discontinued from L AC, skin intact, incision free of s/s of infection. Patient discharged to Home with self care, accompanied by , via Wheelchair.
== END 2021-08-05 13:00 | disposition home or self-care (01) | DRG 517 ==
LOC: 2 NORTH 18:12
PROVIDERS: ADMIT Family Medicine; ATTEND Family Medicine
PROC: 0QS03ZZ Reposition Lumbar Vertebra, Percutaneous Approach (ICD-10-PCS; principal; 2021-08-04)
PROC: 0QU03JZ Supplement Lumbar Vertebra with Synthetic Substitute, Percutaneous Approach (ICD-10-PCS; 2021-08-04)
DX: M48.56XA Collapsed vertebra, not elsewhere classified, lumbar region, initial encounter for fracture (principal); I50.9 Heart failure, unspecified; D64.9 Anemia, unspecified; E03.9 Hypothyroidism, unspecified; E11.9 Type 2 diabetes mellitus without complications; E78.5 Hyperlipidemia, unspecified; F32.9 Major depressive disorder, single episode, unspecified; I11.0 Hypertensive heart disease with heart failure; I25.10 Atherosclerotic heart disease of native coronary artery without angina pectoris; J44.9 Chronic obstructive pulmonary disease, unspecified; K21.9 Gastro-esophageal reflux disease without esophagitis; M06.9 Rheumatoid arthritis, unspecified; M47.819 Spondylosis without myelopathy or radiculopathy, site unspecified; M48.00 Spinal stenosis, site unspecified; M81.0 Age-related osteoporosis without current pathological fracture; Z79.4 Long term (current) use of insulin; Z79.51 Long term (current) use of inhaled steroids; Z79.84 Long term (current) use of oral hypoglycemic drugs; Z79.899 Other long term (current) drug therapy; Z82.3 Family history of stroke; Z87.01 Personal history of pneumonia (recurrent); Z90.710 Acquired absence of both cervix and uterus; Z96.653 Presence of artificial knee joint, bilateral; G89.29 Other chronic pain; Z88.8 Allergy status to other drugs, medicaments and biological substances; K59.00 Constipation, unspecified
CPT/HCPCS: 22514; 36415; 72148; 80053; 82962; 85025; 85610; 85730; C1713; J0690; J1644; J1815; J2250; J2270; J3010; J3490; Q9966; G0378